=== PATIENT | male | born 1995 | race African-American/Black ===

== ENCOUNTER 2023-08-24 22:31 | Emergency (ER) | payer OTHER, SELFPAY ==
--- NOTE | ~2023-08-24 | CT_ITS ---
EXAMINATION: CT ABDOMEN AND PELVIS WITH CONTRAST CLINICAL INFORMATION: Abdominal pain COMPARISON: None available. TECHNIQUE: Multidetector volumetric images were obtained from the superior aspect of the liver through the pubic symphysis following administration 85 mL of Omnipaque 350 intravenous contrast. Sagittal and coronal reformatted images were obtained on the technologist's workstation. Oral contrast: No This CT examination was performed using dose optimization techniques as appropriate, variously including the following: *Automated exposure control *Adjustment of mA and/or kV according to patient size (this includes techniques or standardized protocols for targeted exams where dose is matched to indication/reason for exam; i.e. extremities or head) *Use of iterative reconstruction technique DLP: 516 mGy-cm FINDINGS: LUNG BASES: The visualized lung bases are unremarkable. LIVER, GALLBLADDER, AND BILIARY TREE: The liver is normal in size, shape, and attenuation. No focal hepatic lesion or biliary ductal dilatation is present. The gallbladder is unremarkable with no evidence of radiopaque gallstones, gallbladder wall thickening, or obvious pericholecystic inflammatory changes. PANCREAS: Unremarkable. SPLEEN: Unremarkable. ADRENAL GLANDS: Unremarkable. KIDNEYS AND URETERS: The kidneys are normal in size, shape, and attenuation. No hydronephrosis, hydroureter, or calculi seen. No perinephric stranding. BLADDER: Unremarkable. GASTROINTESTINAL TRACT: The small and large bowel are unremarkable. The appendix is unremarkable. ABDOMINAL WALL: No significant hernia is appreciated. LYMPH NODES: Normal. VASCULAR: Unremarkable. PELVIC VISCERA: Unremarkable. OSSEOUS STRUCTURES: Unremarkable. CT/CT abdomen pelvis w IV con IMPRESSION: No significant abnormality. Fleischner guidelines were followed.
[2023-08-24 22:43] VITALS: BP 127/83; PULSE 91; RESP 18; TEMP 37.3; O2SAT 98
[2023-08-24 22:49] VITALS: BP 114/72; PULSE 96; O2SAT 100; BMI 29.1
--- NOTE | 2023-08-24 22:50 | MHC.EDTECH ---
Patient came in by ambulance, changed into crisis attire,vitals taken. Belongings list completed and locked in the [employer] # [id number].
--- NOTE | 2023-08-24 23:28 | ED_ITS ---
HPI - Abdominal Pain General Chief Complaint: Abdominal Pain Stated Complaint: LRQ PAIN W/ TENDERNESS Time Seen by Provider: 08/24/23 22:58 Source: patient Mode of arrival: ambulatory Limitations: no limitations History of Present Illness HPI narrative: Patient comes to emergency room complaining of right lower quadrant pain that started earlier this morning. Patient states that he has been feeling nauseous, 1 episode of diarrhea. Patient states that the pain is worse when he ambulates. Patient denies any recent injuries. At this time, patient is coming by ambulance from [facility], patient is on a Section 12. Patient denies any previous abdominal surgery or kidney stones Related Data Allergies Allergy/AdvReac Type Severity Reaction Status Date / Time No Known Allergies Allergy Verified 08/24/23 23:27 Review of Systems Review of Systems Constitutional : No Weight loss, No Fever, No Chills, No Night Sweats, No Fatigue, No Malaise ENT/Mouth : No Hearing loss, No Ear Pain, No Nasal Congestion, No Sinus Pain, No Hoarseness, No sore throat, No Rhinorrhea, No Swallowing Difficulty Eyes: No Eye Pain, No Swelling, No Redness, No Foreign Body, No Discharge, No Vision Changes Cardiovascular : No Chest Pain, No SOB, No Dyspnea on Exertion, No Orthopnea, No Edema, No Palpitations Respiratory : No Cough, No Sputum, No Wheezing, No Smoke Exposure, No Dyspnea Gastrointestinal : Complaining of Nausea, no vomiting, complaining of 1 episode of diarrhea, complaining of right lower quadrant pain worse with ambulation. Genitourinary : no irregular bleeding, No Dysuria, No Urinary Frequency, No Hematuria, No Urinary Incontinence, No Urgency, No Flank Pain, No Urinary Flow Changes, No Hesitancy Musculoskeletal : No joint pain, No Myalgias, No Joint Swelling Skin : No Skin Lesions, No rash Neuro : No Weakness, No Numbness, No Paresthesias, No Loss of Consciousness, No Dizziness, No Headache Psych : No Anxiety/Panic, No Depression, No SI/HI/AH/VH, No Social Issues, Heme/Lymph: No Bruising, No Bleeding,No Lymphadenopathy Endocrine : No Polyuria, No Polydipsia, No Temperature Intolerance PMFSH Social History Social History Advance Directives: No Advance Directives Information Provided: Yes Physical Exam ED Vital Signs: Vital Signs - 24 hr 08/24/23 22:43 Temperature 99.2 F Pulse Rate 91 Respiratory Rate 18 Blood Pressure 127/83 Pulse Oximetry 98 Oxygen Delivery Method Room Air BMI result Body Mass Index 29.1 Const Other: Appearance: Alert. Oriented X3. No acute distress. Well-appearing Eyes: Pupils equal, round and reactive to light. ENT: Pharynx normal. Neck: Normal inspection. Neck supple. No lymph nodes noted. No crepitus CVS: Normal heart rate and rhythm. Pulses normal. Normal S1 and S2 Respiratory: No respiratory distress. Breath sounds normal. No Wheezing. No rales Abdomen: Soft , mild tenderness to palpation in right side upper and lower quadrant, negative Mar sign, No rigidity. No distention. Skin: Skin warm and dry. Normal skin color. Normal skin turgor. Extremities: No lower extremity edema. No Lacerations. No Rash Neuro: Oriented X 3. No motor deficit. No sensory deficit. Moving all extremities. No slurred speech. CN 2 through 12 grossly intact Psych: calm, cooperative, normal affect Course Course Course Narrative: -all of patient's labs and imaging pending Medical Decision Making Medical Decision Making [facility] Narrative: My interpretation of labs: Normal hematology, normal chemistry, urine negative for UTI -my interpretation of CT scan of the abdomen, no obvious abnormality, no obvious signs of appendicitis or cholecystitis Differential Diagnosis Differential Diagnoses: The differential diagnosis associated with the presentation includes (Appendicitis, cholecystitis, SBO, functional abdominal pain) Admission/Observation Consideration of admission/observation: Escalation of care including admission/observation considered (Given patient's location of pain, symptoms, patient was considered) Lab Data [facility] Lab Attestation statement: I reviewed the patient's lab results. 08/24/23 23:39 08/24/23 23:39 Labs: Lab Results 08/24/23 08/24/23 Range/Units 23:38 23:39 WBC 10.2 (4.8-10.8) X10*3/uL RBC 4.76 (4.60-5.80) X10*6/uL Hgb 14.9 (14.0-18.0) g/dl Hct 41.4 L (42.0-52.0) % MCV 87.0 (80.0-98.0) fL MCH 31.3 (27.0-33.0) pg MCHC 36.0 (31.0-36.0) g/dl RDW 13.5 (11.0-16.0) % Plt Count 148 L (160-400) X10*3/uL MPV 10.9 (9.4-12.4) fL Immature Gran % (Auto) 0.2 (0.0-0.4) % Neut % (Auto) 45.4 (45-73) % Lymph % (Auto) 41.5 H (20-40) % [place] % (Auto) 10.2 (2-11) % Eos % (Auto) 2.4 (0-4) % Baso % (Auto) 0.3 (0-2) % Lymph # (Auto) 4.2 (1.2-4.9) X10*3/uL [place] # (Auto) 1.0 (0.1-1.2) X10*3/uL Eos # (Auto) 0.2 (0.0-0.4) X10*3/uL Baso # (Auto) 0.0 (0.0-0.2) X10*3/uL Abs Immat Gran (auto) 0.02 (0.00-0.03) X10*3/uL Absolute Neuts (auto) 4.6 (2.0-8.3) x10*3/uL Absolute Nucleated RBC 0.000 (0.0-0.012) X10*3/uL Nucleated RBC % (auto) 0.0 (0.0-0.2) /100WBC Sodium 141 (135-145) mmol/L Potassium 4.0 (3.3-5.1) mmol/L Chloride 106 (96-108) mmol/L Carbon Dioxide 25 (22-29) mmol/L Anion Gap 14 (12-20) BUN 14 (9-16) mg/dL Creatinine 0.96 (0.5-1.4) mg/dL Estim Creat Clear Calc 112.2 Estimated GFR > 60 Random Glucose 106 (60-115) mg/dL Calcium 9.6 (8.4-10.2) mg/dL Total Bilirubin 0.2 (0.0-1.0) mg/dL AST 16 (5-37) U/L ALT 24 (0-40) U/L Alkaline Phosphatase 59 (39-117) U/L Total Protein 7.0 (6.5-8.0) g/dL Albumin 4.2 (3.5-5.0) g/dL Lipase 63 (8-78) U/L Urine Color Yellow Urine Appearance Clear Urine pH 6.5 (5.0-9.0) Ur Specific [place] 1.025 (1.005-1.025) Urine Protein Negative (Neg-Trace) mg/dL Urine Glucose (UA) Negative (Negative) mg/dL Urine Ketones Trace (Negative) mg/dL Urine Blood Negative (Negative) Urine Nitrite Negative (Negative) Ur Leukocyte Esterase Negative (Negative) Independent Interpretation I performed an independent interpretation of an: CT Scan Radiology Impression Discussion of test interpretation with radiology: I have reviewed the radiologist's reading. Radiologist Impression: FINDINGS: LUNG BASES: The visualized lung bases are unremarkable. LIVER, GALLBLADDER, AND BILIARY TREE: The liver is normal in size, shape, and attenuation. No focal hepatic lesion or biliary ductal dilatation is present. The gallbladder is unremarkable with no evidence of radiopaque gallstones, gallbladder wall thickening, or obvious pericholecystic inflammatory changes. PANCREAS: Unremarkable. SPLEEN: Unremarkable. ADRENAL GLANDS: Unremarkable. KIDNEYS AND URETERS: The kidneys are normal in size, shape, and attenuation. No hydronephrosis, hydroureter, or calculi seen. No perinephric stranding. BLADDER: Unremarkable. GASTROINTESTINAL TRACT: The small and large bowel are unremarkable. The appendix is unremarkable. ABDOMINAL WALL: No significant hernia is appreciated. LYMPH NODES: Normal. VASCULAR: Unremarkable. PELVIC VISCERA: Unremarkable. OSSEOUS STRUCTURES: Unremarkable. CT/CT abdomen pelvis w IV con IMPRESSION: No significant abnormality. Fleischner guidelines were followed. Medications Administered Discontinued Medications Generic Name Dose Route Start Last Admin Trade Name Freq PRN Reason Stop Dose Admin Iohexol 85 ml 08/25/23 00:24 08/25/23 00:24 Iohexol 350 Mg/Ml 100 Ml Infus..Btl IV 08/25/23 00:25 85 ml ONCE ONE Administration Ketorolac Tromethamine 30 mg 08/24/23 23:33 08/25/23 00:06 Ketorolac Tromethamine 30 Mg/Ml Vial IVPUSH 08/24/23 23:34 30 mg ONCE ONE Administration Ondansetron HCl 4 mg 08/24/23 23:33 08/25/23 00:06 Ondansetron Hcl 4 Mg/2 Ml Vial IVPUSH 08/24/23 23:34 4 mg ONCE ONE Administration Critical Care Time Critical Care Time Critical Care Time: Yes Total Critical Care Time: 45 Attestation: I have personally provided critical care time. Time includes review of lab data, radiology results, discussion with consultants, and monitoring for potential decompensation. Intervention performed as documented. Discharge Plan Discharge Clinical Impression: Abdominal pain Patient Disposition: Home, Self-Care Instructions: Abdominal Pain (ED) Additional Instructions: Please follow-up with your primary care physician tomorrow. If you have any worsening or new symptoms, please return to the emergency room or call 911
[2023-08-24 23:46] LABS: MANUAL DIFF FLAG NO
[2023-08-24 23:48] LABS: Basophils Percent Auto 0.3 % (0-2); Eosinophils Absolute Auto 0.2 X10*3/uL (0.0-0.4); Eosinophils Percent Auto 2.4 % (0-4); Hematocrit 41.4 % (42.0-52.0); Hemoglobin 14.9 g/dl (14.0-18.0); Imm Gran Abs Auto 0.02 X10*3/uL (0.00-0.03); Imm Gran Pct Auto 0.2 % (0.0-0.4); Lymphocytes Absolute Auto 4.2 X10*3/uL (1.2-4.9); Lymphocytes Percent Auto 41.5 % (20-40); Mean Corpuscular Hemoglobin 31.3 pg (27.0-33.0); Mean Platelet Volume 10.9 fL (9.4-12.4); Monocytes Percent Auto 10.2 % (2-11); Neutrophils Absolute Auto 4.6 x10*3/uL (2.0-8.3); Neutrophils Percent Auto 45.4 % (45-73); Platelet Count 148 X10*3/uL (160-400); Red Blood Count 4.76 X10*6/uL (4.60-5.80); Red Cell Distribution Width 13.5 % (11.0-16.0); White Blood Count 10.2 X10*3/uL (4.8-10.8)
[2023-08-24 23:57] LABS: Appearance Urine Clear; Color Urine Yellow; Glucose Urine UA Negative (Negative); Leukocyte Esterase Urine Negative (Negative); Nitrite Urine Negative (Negative); PH 6.5 (5.0-9.0); Specific Gravity - Urine 1.025 (1.005-1.025); Urine Blood Negative (Negative); Urine Ketones Trace mg/dL (Negative); Urine Protein Negative (Neg-Trace)
[2023-08-25 00:02] LABS: Alanine Aminotransferase 24 U/L (0-40); Albumin Level 4.2 g/dL (3.5-5.0); Alkaline Phosphatase 59 U/L (39-117); Anion Gap 14 (12-20); Aspartate Amino Transferase 16 U/L (5-37); Bilirubin Total 0.2 mg/dL (0.0-1.0); Blood Urea Nitrogen 14 mg/dL (9-16); Calcium 9.6 mg/dL (8.4-10.2); Carbon Dioxide 25 mmol/L (22-29); Chloride 106 mmol/L (96-108); Creatinine Clr Calc Pharmacy 112.2; Estimated Glomerular Filt Rate > 60; Glucose Random 106 mg/dL (60-115); Lipase 63 U/L (8-78); Sodium 141 mmol/L (135-145)
[2023-08-25] MEDS: ondansetron HCL 4 MG/2 ML VIAL IVPUSH (00:06)
[2023-08-25] MEDS: Ketorolac Tromethamine 30 MG/ML VIAL IVPUSH (00:06)
[2023-08-25] MEDS: iohexoL 350 MG/ML 100 ML INFUS..BTL 85 ML IV (00:24)
[2023-08-25 01:47] VITALS: BP 143/82; PULSE 93; RESP 18; TEMP 36.8; O2SAT 99
--- NOTE | 2023-08-25 01:59 | PC.NURSE ---
nurse to nurse report given to reinier at [facility] for discharge pt awaiting transport back to [facility] facility via ems
[2023-08-25] MEDS: Bacitracin Oint 0.9 GM PACKET 1 APPL TOPICAL (02:25)
--- NOTE | 2023-08-25 03:15 | PC.NURSE ---
ems report given prior to transport to [facility]
== END 2023-08-25 03:16 | disposition home or self-care (01) ==
PROVIDERS: Emergency Medicine; Emergency Provider Emergency Medicine
DX: R10.31 Right lower quadrant pain (principal); R11.0 Nausea; R19.7 Diarrhea, unspecified
CPT/HCPCS: 36415; 74177; 80053; 81003; 83690; 85025; 96374; 96375; 99284; J1885; J2405; Q9967

== ENCOUNTER 2024-05-28 16:52 | Emergency (ER) | payer OTHER, SELFPAY ==
[2024-05-28 17:24] VITALS: BP 140/76; PULSE 107; RESP 16; TEMP 36.8; O2SAT 98
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
[2024-05-28 17:42] VITALS: BMI 25.8
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
[2024-05-28] MEDS: LORazepam 1 MG TABLET 2 MG PO (20:20)
[2024-05-28] MEDS: HaloperidoL 5 MG TABLET PO (20:21)
[2024-05-28 20:47] LABS: MANUAL DIFF FLAG NO
[2024-05-28 20:49] LABS: Basophils Absolute Auto 0.1 X10*3/uL (0.0-0.2); Basophils Percent Auto 0.5 % (0-2); Eosinophils Absolute Auto 0.1 X10*3/uL (0.0-0.4); Eosinophils Percent Auto 1.3 % (0-4); Hematocrit 44.4 % (42.0-52.0); Hemoglobin 16.2 g/dl (14.0-18.0); Imm Gran Abs Auto 0.03 X10*3/uL (0.00-0.03); Imm Gran Pct Auto 0.3 % (0.0-0.4); Lymphocytes Absolute Auto 3.7 X10*3/uL (1.2-4.9); Lymphocytes Percent Auto 33.7 % (20-40); Mean Corpuscular HGB Conc 36.5 g/dl (31.0-36.0); Mean Corpuscular Hemoglobin 32.6 pg (27.0-33.0); Mean Corpuscular Volume 89.3 fL (80.0-98.0); Mean Platelet Volume 10.6 fL (9.4-12.4); Monocytes Absolute Auto 1.2 X10*3/uL (0.1-1.2); Monocytes Percent Auto 11.2 % (2-11); Neutrophils Absolute Auto 5.9 x10*3/uL (2.0-8.3); Platelet Count 199 X10*3/uL (160-400); Red Blood Count 4.97 X10*6/uL (4.60-5.80); Red Cell Distribution Width 14.7 % (11.0-16.0); White Blood Count 11.1 X10*3/uL (4.8-10.8)
[2024-05-28 21:00] LABS: Valproate 56.7 mcg/mL (50.0-100.0)
[2024-05-28 21:04] LABS: Alanine Aminotransferase 51 U/L (0-40); Albumin Level 4.3 g/dL (3.5-5.0); Alkaline Phosphatase 65 U/L (39-117); Anion Gap 12 (12-20); Aspartate Amino Transferase 29 U/L (5-37); Bilirubin Total 0.3 mg/dL (0.0-1.0); Blood Urea Nitrogen 10 mg/dL (9-16); Calcium 10.2 mg/dL (8.4-10.2); Carbon Dioxide 27 mmol/L (22-29); Chloride 107 mmol/L (96-108); Creatinine Clr Calc Pharmacy 86.2; Estimated Glomerular Filt Rate > 60; Ethanol < 10 mg/dL; Glucose Random 117 mg/dL (60-115); Potassium 4.2 mmol/L (3.3-5.1); Sodium 142 mmol/L (135-145); Total Protein 7.6 g/dL (6.5-8.0)
[2024-05-28] MEDS: hydrOXYzine HCL 25 MG TABLET PO (21:12)
[2024-05-28] MEDS: Divalproex Sodium 500 MG TABLET.DR PO (21:12)
[2024-05-28] MEDS: risperiDONE 2 MG TABLET PO (21:12)
--- NOTE | 2024-05-28 21:15 | PC.NURSE ---
loud pressured speech, in mileu and makes inappropriate comments (sexually provocative) attempts to antagonize staff, grandiose
--- NOTE | 2024-05-28 21:20 | PC.NURSE ---
constant childlike chatter
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
--- OUTSIDE RECORDS SUMMARY | 2024-05-29 03:17 | XMS_ITS ---
Author Name [facility] Organization Unknown History of Medication Use Medication Directions Dispensed Refills Start Date End Date Stat No known medications No known medications 2023 active Problems Problem Status Onset Date Problem Type Date of Resolution Source Homelessness active EncounterDiagnosisAct CTTHSFRAN Mood disorder (HCC) active EncounterDiagnosisAc t CTTHSFRAN
[2024-05-29 06:17] VITALS: RESP 18
[2024-05-29] MEDS: Divalproex Sodium 500 MG TABLET.DR PO (09:35)
[2024-05-29] MEDS: risperiDONE 2 MG TABLET PO (09:35)
[2024-05-29] MEDS: Atorvastatin Calcium 20 MG TABLET PO (09:35)
[2024-05-29] MEDS: hydrOXYzine HCL 25 MG TABLET PO (09:35)
--- NOTE | 2024-05-29 09:47 | PC.NURSE ---
Pt walking around unit, loud pressured speech, asking for discharge I can't spend my whole life in the hospital. pt making calls to the courthouse
[2024-05-29 10:53] VITALS: BP 130/80; PULSE 90; RESP 18; TEMP 36.8; O2SAT 99
== END 2024-05-29 11:03 | disposition still patient (30) ==
PROVIDERS: Physician Assistant; Emergency Provider Internal Medicine
DX: F31.9 Bipolar disorder, unspecified (principal); F41.9 Anxiety disorder, unspecified; F84.0 Autistic disorder; Z79.899 Other long term (current) drug therapy
CPT/HCPCS: 36415; 80053; 80164; 80307; 85025; 99284

== ENCOUNTER 2024-07-09 14:34 | Emergency (ER) | payer OTHER, SELFPAY ==
[2024-07-09 14:55] VITALS: BP 134/80; PULSE 105; RESP 18; TEMP 36.3; O2SAT 97
[2024-07-09 14:59] VITALS: BP 151/93; PULSE 106; PULSE 89; RESP 14; TEMP 36.4; O2SAT 100; O2SAT 98; BMI 27.2
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
--- NOTE | 2024-07-09 15:12 | PC.NURSE ---
Pt's father contacted staff stating pt is from the [place] area and he took a bus to [facility] with no place to stay; pt's father states pt has a guardian through [facility] and they've been looking for him; pt's father is states he'll contact [facility] and have them contact [facility]
--- NOTE | 2024-07-09 15:15 | PC.NURSE ---
This RN received verbal permission from pt's father to list his name and contact info in pt chart: Leroy Chirinos [phone]
[2024-07-09 15:38] LABS: MANUAL DIFF FLAG NO
[2024-07-09] MEDS: LORazepam 1 MG TABLET 2 MG PO (15:39)
--- NOTE | 2024-07-09 15:39 | ED_ITS ---
HPI - Psych General Chief Complaint: Psychiatric Symptoms Stated Complaint: PSYCH EVAL,OFF MEDS,AUD HALLUCINATIONS,?MANIC Time Seen by Provider: 07/09/24 15:25 Source: patient and EMS Mode of arrival: EMS Limitations: no limitations History of Present Illness ED Provider: DR. Arthur HPI Narrative: 28-year-old male history of mental illness and previous hospitalization, patient took the bus from [facility] area came to [facility] patient walked into check will be police seeking for help, patient was transported to our hospital for further evaluation. Patient admit to auditory hallucination, no SI, no HI. Related Data Home Medications ?Medication ?Instructions ?Recorded ?Confirmed atorvastatin 20 mg tablet 20 mg PO DAILY 05/28/24 05/28/24 divalproex 500 mg tablet,delayed 500 mg PO BID anemia 05/28/24 05/28/24 release hydroxyzine HCl 25 mg tablet 25 mg PO BID anxiety 05/28/24 05/28/24 risperidone 1 mg tablet 2 mg PO BID psychosis 05/28/24 05/28/24 Allergies Allergy/AdvReac Type Severity Reaction Status Date / Time No Known Allergies Allergy Verified 07/09/24 15:05 Review of Systems 2 Review of Systems: All other systems are reviewed and are negative Constitutional: Reports as per HPI and Reports no additional constitutional complaints Eyes: Reports as per HPI and Reports no additional eye complaints Reports system reviewed and no additional complaints, except as documented Cardiovascular: Reports as per HPI and Reports no additional cardiovascular complaints Respiratory: Reports as per HPI and Reports no additional respiratory complaints Gastrointestinal: Reports as per HPI and Reports no additional gastrointestinal complaints Genitourinary: Reports no additional female genitourinary complaints Musculoskeletal: Reports no additional musculoskeletal complaints Skin/Breast: Reports system reviewed and no additional complaints, except as docu Psychiatric: Reports no additional psychiatric complaints Endocrine: Reports no additional endocrine complaints Hematologic/Lymphatic: Reports no additional hematologic/lymphatic complaints Allergic/Immunologic: Reports no additional allergic/immunologic complaints Reports system reviewed and no additional complaints, except as documented and Reports Abnormal speech present [facility] Social History Social History Alcohol intake: never Advance Directives: No Advance Directives Information Provided: No Physical Exam 2 Vital Signs: Vital Signs: Last Vital Signs Temp 97.5 F 07/09/24 14:59 Pulse 89 07/09/24 14:59 Resp 14 07/09/24 14:59 BP 151/93 H 07/09/24 14:59 Pulse Ox 100 07/09/24 14:59 O2 Del Method Room Air 07/09/24 14:59 BMI result Body Mass Index 27.2 Vital signs have been reviewed and appear to be correct. Blood pressure elevated. Heart rate normal. Respiratory rate normal. Temperature normal. Oxygen saturation normal. Appearance: Alert. Oriented X3. No acute distress. Head: Normal external exam. Normocephalic. Atraumatic. No Muniz signs noted. No raccoon eyes noted Eyes: PERRLA. EOMI. Conjunctiva and sclera normal. Eyelids normal. ENT: TM's Normal. Pharynx normal. Uvula midline. Moist mucous membranes. No trismus noted. No drooling noted. No muffled voice noted. Neck: Normal inspection. Neck supple. FROM. No adenopathy. Thyroid Normal. No meningeal signs. No neck mass noted. CVS: Normal heart rate and rhythm. Heart sound normal. No murmurs noted. Pulses normal throughout. Respiratory: No respiratory distress. Painless inspiration. Breath sounds normal. No wheezes/rales/rhonchi noted. Chest nontender. No accessory muscle usage noted or decreased air movement noted. Abdomen: Soft and nontender. Bowel sounds normal in all 4 quadrants. No distention noted. No organomegaly noted. No visible injury noted. Back: No CVA tenderness. Full range of motion noted. Skin: Skin warm and dry. Normal skin color. Normal skin turgor. No rashes/lesions/lacerations noted. Extremities: No lower extremity edema. Extremities exhibit normal range of motion. Extremities nontender. Neuro: Oriented X 3. Cranial nerve exam: II-XII are grossly intact No motor deficit. No sensory deficit. Reflexes normal. Patient Orientation: Person, Place, Time and Situation, okay hygiene and grooming. Fair eye contact, attentive, no tics or tremors. Level of Consciousness: Awake, Appropriate and Alert Patient Behavior: Appropriate, Guarded, Cooperative and Anxious Mood Description: Constricted, Blunted and Apprehensive Affect Description: Constricted, Blunted and Apprehensive Patient Cognition Impaired: No Ability to Follow Directions: Excellent Speech Pattern: Clear, Appropriate and Spontaneous Speech, nonpressured, spontaneous with regular rate and rhythm, normal volume and prosody. No dysarthria. Memory Description: Intact, Immediate Intact and Short Term Intact Hallucinations: Auditory hallucination present. Delusions: Not Present Thought Process: Intact Thought Content: positive for Intact, positive for Logical, denies Suicidal Ideation and denies Homicidal Ideation. Depressive Symptoms: Not present. Judgement and Insight: Limited but adequate. Course Reevaluation(s) Reevaluation #1: 28-year-old with history of mental illness who is not taking his medication, [place] the bus from far location came to the [facility], medically cleared will get care team evaluation. Time: 17:00 Medical Decision Making Differential Diagnosis Differential Diagnoses: The differential diagnosis associated with the presentation includes (Acute psychosis, SI, HI, medical clearance.) Admission/Observation Consideration of admission/observation: Escalation of care including admission/observation considered Lab Data MDM Lab Attestation statement: I reviewed the patient's lab results. 07/09/24 15:32 07/09/24 15:33 Discharge Plan Discharge Clinical Impression: Auditory hallucination Patient Disposition: Still a Patient Prescriptions: No Action atorvastatin 20 mg tablet 20 mg PO DAILY hydroxyzine HCl 25 mg tablet 25 mg PO BID risperidone 1 mg tablet 2 mg PO BID divalproex 500 mg tablet,delayed release (DR/EC) 500 mg PO BID Print Language: Georgian
[2024-07-09 15:45] LABS: Basophils Percent Auto 0.4 % (0-2); Eosinophils Absolute Auto 0.1 X10*3/uL (0.0-0.4); Eosinophils Percent Auto 0.6 % (0-4); Hematocrit 43.3 % (42.0-52.0); Hemoglobin 15.6 g/dl (14.0-18.0); Imm Gran Abs Auto 0.03 X10*3/uL (0.00-0.03); Imm Gran Pct Auto 0.3 % (0.0-0.4); Lymphocytes Absolute Auto 2.8 X10*3/uL (1.2-4.9); Lymphocytes Percent Auto 27.1 % (20-40); Mean Corpuscular Hemoglobin 32.2 pg (27.0-33.0); Mean Corpuscular Volume 89.3 fL (80.0-98.0); Mean Platelet Volume 10.2 fL (9.4-12.4); Monocytes Absolute Auto 0.5 X10*3/uL (0.1-1.2); Monocytes Percent Auto 4.9 % (2-11); Neutrophils Percent Auto 66.7 % (45-73); Platelet Count 212 X10*3/uL (160-400); Red Blood Count 4.85 X10*6/uL (4.60-5.80); Red Cell Distribution Width 13.3 % (11.0-16.0); White Blood Count 10.5 X10*3/uL (4.8-10.8)
[2024-07-09 15:46] LABS: Appearance Urine Clear; Color Urine Yellow; Glucose Urine UA Negative (Negative); Leukocyte Esterase Urine Negative (Negative); Nitrite Urine Negative (Negative); PH 6.5 (5.0-9.0); Urine Blood Negative (Negative); Urine Ketones Trace mg/dL (Negative); Urine Protein Negative (Neg-Trace)
[2024-07-09 15:49] LABS: Amphetamine Screen Urine Not Detected (Not Detect); Barbiturates, Urine Not Detected (Not Detect); Benzodiazepines Screen Urine Not Detected (Not Detect); Buprenorphine Scr Not Detected (Not Detect); Cannabinoid Screen Urine Not Detected (Not Detect); Cocaine Screen Urine Not Detected (Not Detect); Fentanyl, urine Not Detected (Not Detect); Methadone Screen, Urine Not Detected (Not Detect); Opiate Screen Urine Not Detected (Not Detect); Oxycodone Screen Urine Not Detected (Not Detect); Phencyclidine Screen Urine Not Detected (Not Detect)
[2024-07-09 16:06] LABS: Alanine Aminotransferase 28 U/L (0-40); Albumin Level 4.4 g/dL (3.5-5.0); Anion Gap 15 (12-20); Aspartate Amino Transferase 27 U/L (5-37); Bilirubin Total 0.3 mg/dL (0.0-1.0); Blood Urea Nitrogen 10 mg/dL (9-16); Calcium 9.7 mg/dL (8.4-10.2); Carbon Dioxide 25 mmol/L (22-29); Chloride 105 mmol/L (96-108); Creatinine Clr Calc Pharmacy 84.8; Estimated Glomerular Filt Rate > 60; Ethanol < 10 mg/dL; Glucose Random 135 mg/dL (60-115); Potassium 3.9 mmol/L (3.3-5.1); Sodium 141 mmol/L (135-145); Total Protein 7.8 g/dL (6.5-8.0)
[2024-07-09 16:09] LABS: Valproate 86.3 mcg/mL (50.0-100.0)
[2024-07-09 16:16] LABS: Alkaline Phosphatase 65 U/L (39-117)
--- OUTSIDE RECORDS SUMMARY | 2024-07-09 17:57 | XMS_ITS | Continuity of Care Document ---
Author Organization [facility] Address [address] [address] Insurance Providers Payer Plan Claims Address Claims Phone Policy Number Group Number Relation Employer Guarantor Name Guarantor Guarantor Address Guarantor Phone [facility] [id number] Self Devyn Chirinos 1995 [address] [place], [place] [id number] [facility] Requi red [id number] Other Unknown Unknown 1995 [address] [place] [address] Medica re A&B Medic are A&B [id number] Self Devyn Chirinos 1995 [address] [place], [place] [id number] Problems Unknown Problems Results Test Value / Unit Interpretation Reference Ran ge VALPROIC ACID, FREE[GINGER]?Collected: 06/28/2023 08:00 AM?Source: [facility] VALPROIC ACID, FREE [[id number]] 7.6 mg/L 4.8-17.3 mg/L Nonlinear drug binding prope rties result in thefraction of free valproic acid increasing as totaldrug increases. The free valproic acid fractionmay range from 5% to 25% for the total drug rangeof 30-160 mg/L. VALPROIC ACID[GINGER]? Collected: 06/28/2023 08:00 AM?Source: [facility] VALPROIC ACID [[id number]] 68.7 mg/L 50. 0-100.0 mg/L COMPREHENSIVE METABOLIC PANE L[GINGER]?Collected: 06/28/2023 08:00 AM?Source: [facility] GLUCOSE [[id number]] 80 mg/dL 65-99 mg/ dL Fasting reference interval UREA NITROGEN (BUN) [[id number]] 10 mg/dL 7-25 mg/dL CREATININE [[id number]] 1.12 mg/dL 0.60-1 .24 mg/dL EGFR [[id number]] 92 mL/min/1.73m2 > OR = 6 0 mL/min/1.73m2 BUN/CREATININE RATIO [[id number]] SEE NOTE: (calc) 6-22 (calc) Not Reported: BUN and Creati nine are withinreference range. SODIUM [54492725] 138 mmol/L 135-146 mm ol/L POTASSIUM [35593700] 4.5 mmol/L 3.5-5.3 mmol/L CHLORIDE [81462435] 101 mmol/L 98-110 m mol/L CARBON DIOXIDE [[id number]] 28 mmol/L 20 -32 mmol/L CALCIUM [89146709] 9.6 mg/dL 8.6-10.3 mg/dL PROTEIN, TOTAL [99440951] 6.7 g/dL 6. 1-8.1 g/dL ALBUMIN [[id number]] 4.2 g/dL 3.6-5.1 g /dL GLOBULIN [53077250] 2.5 g/dL (calc) 1.9-3 .7 g/dL (calc) ALBUMIN/GLOBULIN RATIO [76911168] 1.7 (calc) 1.0-2.5 (calc) BILIRUBIN, TOTAL [23507598] 0.3 mg/dL 0.2-1.2 mg/dL ALKALINE PHOSPHATASE [58184472] 49 U/L 36-130 U/L AST [[id number]] 17 U/L 10-40 U/L ALT [[id number]] 24 U/L 9-46 U/L CBC (INCLUDES DIFF/PLT)[GINGER] ?Collected: 06/28/2023 08:00 AM?Source: [facility] WHITE BLOOD CELL COUNT [[id number]] 8.3 Thousand/uL 3.8-10.8 Thousand/uL RED BLOOD CELL COUNT [[id number]] 4.90 Million/uL 4.20-5.80 Million/uL HEMOGLOBIN [94612387] 15.4 g/dL 13.2-1 7.1 g/dL HEMATOCRIT [46652326] 45.0 % 38.5-5 0.0 % MCV [62316407] 91.8 fL 80.0-100.0 fL MCH [42661311] 31.4 pg 27.0-33.0 pg MCHC [99884699] 34.2 g/dL 32.0-36.0 g/ dL RDW [44486467] 14.5 % 11.0-15.0 % PLATELET COUNT [49497444] 171 Thousand/uL 140-400 Thousand/uL MPV [01393563] 11.3 fL 7.5-12.5 fL ABSOLUTE NEUTROPHILS [50926946] 3494 cells/uL 6210-7893 cells/uL ABSOLUTE LYMPHOCYTES [70645692] 3694 cells/uL 850-3900 cells/uL ABSOLUTE MONOCYTES [11766273] 888 cells/uL 200-950 cells/uL ABSOLUTE EOSINOPHILS [87894423] 183 cells/uL 15-500 cells/uL ABSOLUTE BASOPHILS [87323684] 42 cells/uL 0-200 cells/uL NEUTROPHILS [59055376] 42.1 % LYMPHOCYTES [28231232] 44.5 % MONOCYTES [78918772] 10.7 % EOSINOPHILS [61302106] 2.2 % BASOPHILS [37242849] 0.5 % TSH[GINGER]?Collected: 06/28/2023 08:00 AM?Source: [facility] TSH [[id number]] 5.11 mIU/L H 0.40-4.50 mIU /L VALPROIC ACID, FREE[GINGER]?Collected: 06/13/2023 08:00 AM?Source: [facility] VALPROIC ACID, FREE [[id number]] 11.9 mg/L 4.8-17.3 mg/L Nonlinear drug binding prope rties result in thefraction of free valproic acid increasing as totaldrug increases. The free valproic acid fractionmay range from 5% to 25% for the total drug rangeof 30-160 mg/L. VALPROIC ACID[GINGER]? Collected: 06/13/2023 08:00 AM?Source: [facility] VALPROIC ACID [[id number]] 92.6 mg/L 50. 0-100.0 mg/L COMPREHENSIVE METABOLIC PANE L[GINGER]?Collected: 06/13/2023 08:00 AM?Source: [facility] GLUCOSE [[id number]] 85 mg/dL 65-99 mg/ dL Fasting reference interval UREA NITROGEN (BUN) [[id number]] 13 mg/dL 7-25 mg/dL CREATININE [00842818] 1.08 mg/dL 0.60-1 .24 mg/dL EGFR [[id number]] 96 mL/min/1.73m2 > OR = 6 0 mL/min/1.73m2 BUN/CREATININE RATIO [[id number]] SEE NOTE: (calc) 6-22 (calc) Not Reported: BUN and Creati nine are withinreference range. SODIUM [[id number]] 138 mmol/L 135-146 mm ol/L POTASSIUM [21605006] 4.8 mmol/L 3.5-5.3 mmol/L CHLORIDE [30275850] 101 mmol/L 98-110 m mol/L CARBON DIOXIDE [58018718] 30 mmol/L 20 -32 mmol/L CALCIUM [89735784] 9.7 mg/dL 8.6-10.3 mg/dL PROTEIN, TOTAL [40496302] 6.9 g/dL 6. 1-8.1 g/dL ALBUMIN [18534159] 4.3 g/dL 3.6-5.1 g /dL GLOBULIN [43013217] 2.6 g/dL (calc) 1.9-3 .7 g/dL (calc) ALBUMIN/GLOBULIN RATIO [12140172] 1.7 (calc) 1.0-2.5 (calc) BILIRUBIN, TOTAL [79154497] 0.3 mg/dL 0.2-1.2 mg/dL ALKALINE PHOSPHATASE [35276986] 51 U/L 36-130 U/L AST [[id number]] 15 U/L 10-40 U/L ALT [[id number]] 18 U/L 9-46 U/L CBC (INCLUDES DIFF/PLT)[GINGER] ?Collected: 06/13/2023 08:00 AM?Source: [facility] WHITE BLOOD CELL COUNT [[id number]] 9.4 Thousand/uL 3.8-10.8 Thousand/uL RED BLOOD CELL COUNT [[id number]] 4.87 Million/uL 4.20-5.80 Million/uL HEMOGLOBIN [00923672] 15.3 g/dL 13.2-1 7.1 g/dL HEMATOCRIT [19673583] 44.9 % 38.5-5 0.0 % MCV [29451936] 92.2 fL 80.0-100.0 fL MCH [58337210] 31.4 pg 27.0-33.0 pg MCHC [19600502] 34.1 g/dL 32.0-36.0 g/ dL RDW [52785463] 13.7 % 11.0-15.0 % PLATELET COUNT [71538523] 150 Thousand/uL 140-400 Thousand/uL MPV [47907468] 11.3 fL 7.5-12.5 fL ABSOLUTE NEUTROPHILS [06772017] 3779 cells/uL 6880-4331 cells/uL ABSOLUTE LYMPHOCYTES [88660689] 4597 cells/uL H 850-3900 cells/uL ABSOLUTE MONOCYTES [46421981] 799 cells/uL 200-950 cells/uL ABSOLUTE EOSINOPHILS [04239041] 169 cells/uL 15-500 cells/uL ABSOLUTE BASOPHILS [33213274] 56 cells/uL 0-200 cells/uL NEUTROPHILS [98853958] 40.2 % LYMPHOCYTES [93003491] 48.9 % MONOCYTES [43980905] 8.5 % EOSINOPHILS [83756228] 1.8 % BASOPHILS [80068111] 0.6 % TSH[GINGER]?Collected: 06/13/2023 08:00 AM?Source: [facility] TSH [[id number]] 6.87 mIU/L H 0.40-4.50 mIU /L URINALYSIS, COMPLETE W/REFLE X TO CULTURE[GINGER]?Collected: 06/05/2023 08:00 AM?Source: [facility] COLOR [[id number]] YELLOW YELLOW APPEARANCE [76611105] CLEAR CLEAR SPECIFIC GRAVITY [45495713] 1.018 1.001-1.035 PH [01088875] 7.0 5.0-8.0 GLUCOSE [20989915] NEGATIVE NEGATIVE BILIRUBIN [84705441] NEGATIVE NEGATIV E KETONES [00770273] NEGATIVE NEGATIVE OCCULT BLOOD [15617998] NEGATIVE NEGA TIVE PROTEIN [23474096] NEGATIVE NEGATIVE NITRITE [10750366] NEGATIVE NEGATIVE LEUKOCYTE ESTERASE [68317525] NEGATIVE NEGATIVE WBC [92907661] NONE SEEN /HPF < OR = 5 /H PF RBC [01590150] NONE SEEN /HPF < OR = 2 /H PF SQUAMOUS EPITHELIAL CELLS [83792998] NONE SEEN /HPF < OR = 5 /HPF BACTERIA [14762929] NONE SEEN /HPF NONE S EEN /HPF HYALINE CAST [14012075] NONE SEEN /LPF NO NE SEEN /LPF NOTE [41026391] AMOL This urine was analyzed for the presence of WBC,RBC, bacteria, casts, and other formed elements.Only those elements seen were reported. REFLEXIVE URINE CULTURE[GINGER] ?Collected: 06/05/2023 08:00 AM?Source: [facility] REFLEXIVE URINE CULTURE [[id number]] AMOL NO CULTURE INDICATED VALPROIC ACID, FREE[GINGER]?Collected: 02/06/2023 07:00 AM?Source: [facility] VALPROIC ACID, FREE [[id number]] TNP/124 mg/L 4.8-17.3 mg/L TEST NOT PERFORMEDNo suitabl e specimen received.Please review the testrequirements [email or web address] VALPROIC ACID[GINGER]? Collected: 02/06/2023 07:00 AM?Source: [facility] VALPROIC ACID [[id number]] 86.0 mg/L 50. 0-100.0 mg/L COMPREHENSIVE METABOLIC PANE L[GINGER]?Collected: 02/06/2023 07:00 AM?Source: [facility] GLUCOSE [[id number]] 78 mg/dL 65-99 mg/ dL Fasting reference interval UREA NITROGEN (BUN) [44550384] 11 mg/dL 7-25 mg/dL CREATININE [71524452] 1.06 mg/dL 0.60-1 .24 mg/dL EGFR [[id number]] 99 mL/min/1.73m2 > OR = 6 0 mL/min/1.73m2 BUN/CREATININE RATIO [43449117] SEE NOTE: (calc) 6-22 (calc) Not Reported: BUN and Creati nine are withinreference range. SODIUM [79416891] 142 mmol/L 135-146 mm ol/L POTASSIUM [98649286] 4.4 mmol/L 3.5-5.3 mmol/L CHLORIDE [10514540] 104 mmol/L 98-110 m mol/L CARBON DIOXIDE [83185151] 30 mmol/L 20 -32 mmol/L CALCIUM [15801980] 9.5 mg/dL 8.6-10.3 mg/dL PROTEIN, TOTAL [91553914] 6.7 g/dL 6. 1-8.1 g/dL ALBUMIN [92509095] 4.0 g/dL 3.6-5.1 g /dL GLOBULIN [67555168] 2.7 g/dL (calc) 1.9-3 .7 g/dL (calc) ALBUMIN/GLOBULIN RATIO [63713275] 1.5 (calc) 1.0-2.5 (calc) BILIRUBIN, TOTAL [43673844] 0.4 mg/dL 0.2-1.2 mg/dL ALKALINE PHOSPHATASE [52661493] 45 U/L 36-130 U/L AST [05977463] 17 U/L 10-40 U/L ALT [[id number]] 20 U/L 9-46 U/L CBC (INCLUDES DIFF/PLT)[GINGER] ?Collected: 02/06/2023 07:00 AM?Source: [facility] WHITE BLOOD CELL COUNT [[id number]] 7.4 Thousand/uL 3.8-10.8 Thousand/uL RED BLOOD CELL COUNT [[id number]] 4.74 Million/uL 4.20-5.80 Million/uL HEMOGLOBIN [61787205] 15.1 g/dL 13.2-1 7.1 g/dL HEMATOCRIT [39528313] 43.9 % 38.5-5 0.0 % MCV [52814516] 92.6 fL 80.0-100.0 fL MCH [92178565] 31.9 pg 27.0-33.0 pg MCHC [32179966] 34.4 g/dL 32.0-36.0 g/ dL RDW [66939464] 13.9 % 11.0-15.0 % PLATELET COUNT [02469806] 139 Thousand/uL L 140-400 Thousand/uL MPV [56898301] 11.2 fL 7.5-12.5 fL ABSOLUTE NEUTROPHILS [18695139] 2916 cells/uL 9967-6086 cells/uL ABSOLUTE LYMPHOCYTES [32026379] 3419 cells/uL 850-3900 cells/uL ABSOLUTE MONOCYTES [41610776] 866 cells/uL 200-950 cells/uL ABSOLUTE EOSINOPHILS [24576088] 148 cells/uL 15-500 cells/uL ABSOLUTE BASOPHILS [59644926] 52 cells/uL 0-200 cells/uL NEUTROPHILS [11188930] 39.4 % LYMPHOCYTES [61068461] 46.2 % MONOCYTES [17728578] 11.7 % EOSINOPHILS [49420407] 2.0 % BASOPHILS [77611230] 0.7 % TSH[GINGER]?Collected: 02/06/2023 07:00 AM?Source: [facility] TSH [[id number]] 2.66 mIU/L 0.40-4.50 mIU /L QUANTIFERON(R)-TB GOLD PLUS, 1 TUBE[GINGER]?Collected: 12/22/2022 07:00 AM?Source: [facility] QUANTIFERON(R)-TB GOLD PLUS, 1 TUBE [[id number]] NEGATIVE NEGATIVE Negative test result. M. tub erculosis complexinfection unlikely. NIL [77838387] 0.03 IU/mL MITOGEN-NIL [49248441] 7.28 IU/mL TB1-NIL [14524539] 0.00 IU/mL TB2-NIL [60659497] 0.01 IU/mL The Nil tube value reflects the background interferongamma immune response of the patient's blood sample.This value has been subtracted from the patient'sdisplayed TB and Mitogen results.Lower than expected results with the Mitogen tubeprevent false-negative Quantiferon readings bydetecting a patient with a potential immunesuppressive condition and/or suboptimal pre-analyticalspecimen handling.The TB1 Antigen tube is coated with theM. tuberculosis-specific antigens designed to elicitresponses from TB antigen primed CD4+ helperT-lymphocytes.The TB2 Antigen tube is coated with theM. tuberculosis-specific antigens designed to elicitresponses from TB antigen primed CD4+ helper and CD8+cytotoxic T-lymphocytes.For additional information, please refer tohttps://education.[place]/faq/NUB541(This link is being provided for informational/educational purposes only.) CHOLESTEROL, TOTAL[GINGER]?Collected: 12/22/2022 07:00 AM?Source: [facility] CHOLESTEROL, TOTAL [[id number]] 259 mg/dL H 200 mg/dL HDL CHOLESTEROL[GINGER]?Collected: 12/22/2022 07:00 AM?Source: [facility] HDL CHOLESTEROL [[id number]] 36 mg/dL L > OR = 40 mg/dL TRIGLYCERIDES[GINGER]? Collected: 12/22/2022 07:00 AM?Source: [facility] TRIGLYCERIDES [[id number]] 314 mg/dL H 150 mg/dL If a non-fasting specimen wa s collected, considerrepeat triglyceride testing on a fasting specimenif clinically indicated.Matt et al. J. of Clin. Lipidol. 2015;9:129-169. LDL-CHOLESTEROL[GINGER]?Collected: 12/22/2022 07:00 AM?Source: [facility] LDL-CHOLESTEROL [[id number]] 170 mg/dL (calc) H Reference range: or = 2 CHD risk factors.LDL-C is now calculated using the Clyde-Randeecalculation, which is a validated novel method providingbetter accuracy than the Friedewald equation in theestimation of LDL-C.Clyde MANZANO et al. THANG. 2013;310(19): 0135-6681(http://education.ThreatMetrix/faq/FET042) CHOL/HDLC RATIO[GINGER]?Collected: 12/22/2022 07:00 AM?Source: [facility] CHOL/HDLC RATIO [[id number]] 7.2 (calc) H 5 .0 (calc) NON HDL CHOLESTEROL[GINGER]?Collected: 12/22/2022 07:00 AM?Source: [facility] NON HDL CHOLESTEROL [[id number]] 223 mg/dL (calc) H 130 mg/dL (calc) Non-HDL level > or = 220 is very high and may indicategenetic familial hypercholesterolemia (FH). Clinicalassessment and measurement of blood lipid levelsshould be considered for all first-degree relativesof patients with an FH diagnosis.For patients with diabetes plus 1 major ASCVD riskfactor, treating to a non-HDL-C goal of 100 mg/dL(LDL-C of <70 mg/dL) is considered a therapeuticoption. COMPREHENSIVE METABOLIC PANE L[GINGER]?Collected: 12/22/2022 07:00 AM?Source: [facility] GLUCOSE [[id number]] 90 mg/dL 65-99 mg/ dL Fasting reference interval UREA NITROGEN (BUN) [91573270] 9 mg/dL 7-25 mg/dL CREATININE [87210940] 1.07 mg/dL 0.60-1 .24 mg/dL EGFR [38582883] 98 mL/min/1.73m2 > OR = 6 0 mL/min/1.73m2 The eGFR is based on the CKD -EPI 2020 equation. To calculatethe new eGFR from a previous Creatinine or Cystatin Cresult, go to https://www.kidney.org/professionals/kdoqi/gfr%5Fcalculator BUN/CREATININE RATIO [58407016] NOT APPL ICABLE (calc) 6-22 (calc) SODIUM [62792419] 142 mmol/L 135-146 mm ol/L POTASSIUM [86433888] 4.6 mmol/L 3.5-5.3 mmol/L CHLORIDE [89746474] 101 mmol/L 98-110 m mol/L CARBON DIOXIDE [30529125] 29 mmol/L 20 -32 mmol/L CALCIUM [36386532] 9.8 mg/dL 8.6-10.3 mg/dL PROTEIN, TOTAL [53224265] 7.2 g/dL 6. 1-8.1 g/dL ALBUMIN [92039893] 4.2 g/dL 3.6-5.1 g /dL GLOBULIN [92008118] 3.0 g/dL (calc) 1.9-3 .7 g/dL (calc) ALBUMIN/GLOBULIN RATIO [24238680] 1.4 (calc) 1.0-2.5 (calc) BILIRUBIN, TOTAL [67176329] 0.3 mg/dL 0.2-1.2 mg/dL ALKALINE PHOSPHATASE [44232644] 59 U/L 36-130 U/L AST [57427181] 20 U/L 10-40 U/L ALT [63599285] 32 U/L 9-46 U/L CBC (INCLUDES DIFF/PLT)[GINGER] ?Collected: 12/22/2022 07:00 AM?Source: [facility] WHITE BLOOD CELL COUNT [[id number]] 7.2 Thousand/uL 3.8-10.8 Thousand/uL RED BLOOD CELL COUNT [50198388] 5.13 Million/uL 4.20-5.80 Million/uL HEMOGLOBIN [16573374] 16.1 g/dL 13.2-1 7.1 g/dL HEMATOCRIT [02725572] 48.4 % 38.5-5 0.0 % MCV [13025965] 94.3 fL 80.0-100.0 fL MCH [84251542] 31.4 pg 27.0-33.0 pg MCHC [13737059] 33.3 g/dL 32.0-36.0 g/ dL RDW [29925746] 14.4 % 11.0-15.0 % PLATELET COUNT [03513699] 166 Thousand/uL 140-400 Thousand/uL MPV [21744660] 11.8 fL 7.5-12.5 fL ABSOLUTE NEUTROPHILS [98117832] 2650 cells/uL 7184-3989 cells/uL ABSOLUTE LYMPHOCYTES [27289401] 3737 cells/uL 850-3900 cells/uL ABSOLUTE MONOCYTES [40102595] 540 cells/uL 200-950 cells/uL ABSOLUTE EOSINOPHILS [47658591] 223 cells/uL 15-500 cells/uL ABSOLUTE BASOPHILS [87670346] 50 cells/uL 0-200 cells/uL NEUTROPHILS [78135482] 36.8 % LYMPHOCYTES [41093893] 51.9 % MONOCYTES [67598690] 7.5 % EOSINOPHILS [95595395] 3.1 % BASOPHILS [32701065] 0.7 % HEMOGLOBIN A1c[GINGER]?Collected: 12/22/2022 07:00 AM?Source: [facility] HEMOGLOBIN A1c [[id number]] 5.5 % of total Hgb 5.7 % of total Hgb For the purpose of screening for the presence ofdiabetes: or =6.5% Consistent with diabetesThis assay result is consistent with a decreased riskof diabetes.Currently, no consensus exists regarding use ofhemoglobin A1c for diagnosis of diabetes in children.According to [employer] Diabetes Association (ADA)guidelines, hemoglobin A1c 7.0% represents optimalcontrol in non- diabetic patients. Differentmetrics may apply to specific patient populations.Standards of Medical Care in Diabetes(ADA). T4, FREE[GINGER]?Colle cted: 12/22/2022 07:00 AM?Source: [facility] T4, FREE [[id number]] 1.3 ng/dL 0.8-1.8 ng/dL TSH[GINGER]?Collected: 12/22/2022 07:00 AM?Source: [facility] TSH [[id number]] 3.17 mIU/L 0.40-4.50 mIU /L HEPATITIS A IGM[GINGER]?Collected: 12/22/2022 07:00 AM?Source: [facility] HEPATITIS A IGM [[id number]] NON-REACTIVE N ON-REACTIVE HEPATITIS B SURFACE ANTIGEN W/REFL CONFIRM[GINGER]?Collected: 12/22/2022 07:00 AM?Source: [facility] HEPATITIS B SURFACE ANTIGEN [[id number]] NON-REACTIVE NON-REACTIVE HEPATITIS B CORE ANTIBODY (I GM)[GINGER]?Collected: 12/22/2022 07:00 AM?Source: [facility] HEPATITIS B CORE ANTIBODY (I GM) [[id number]] NON-REACTIVE NON-REACTIVE HEPATITIS C AB W/REFL TO HCV RNA, QN, PCR[GINGER]?Collected: 12/22/2022 07:00 AM?Source: [facility] HEPATITIS C ANTIBODY [[id number]] NON-REACTIVE NON-REACTIVE HCV antibody was non-reactiv e. There is no laboratoryevidence of HCV infection.In most cases, no further action is required. However,if recent HCV exposure is suspected, a test for HCV RNA(test code 69580) is suggested.For additional information please refer tohttp://education.[place]/faq/AQR91b5(This link is being provided for informational/educational purposes only.) VALPROIC ACID[GINGER]? Collected: 12/22/2022 07:00 AM?Source: [facility] VALPROIC ACID [[id number]] 82.5 mg/L 50. 0-100.0 mg/L CHOLESTEROL, TOTAL[GINGER]?Collected: 10/30/2022 07:00 AM?Source: [facility] CHOLESTEROL, TOTAL [[id number]] 246 mg/dL H 200 mg/dL HDL CHOLESTEROL[GINGER]?Collected: 10/30/2022 07:00 AM?Source: [facility] HDL CHOLESTEROL [[id number]] 36 mg/dL L > OR = 40 mg/dL TRIGLYCERIDES[GINGER]? Collected: 10/30/2022 07:00 AM?Source: [facility] TRIGLYCERIDES [[id number]] 401 mg/dL H 150 mg/dL If a non-fasting specimen wa s collected, considerrepeat triglyceride testing on a fasting specimenif clinically indicated.Matt et al. J. of Clin. Lipidol. 2015;9:129-169. LDL-CHOLESTEROL[GINGER]?Collected: 10/30/2022 07:00 AM?Source: [facility] LDL-CHOLESTEROL [[id number]] SEE NOTE mg/d L (calc) LDL cholesterol not calculat ed. Triglyceride levelsgreater than 400 mg/dL invalidate calculated LDL results.Reference range: or = 2 CHD risk factors.LDL-C is now calculated using the Clyde-Randeecalculation, which is a validated novel method providingbetter accuracy than the Friedewald equation in theestimation of LDL-C.Clyde MANZANO et al. THANG. 2013;310(19): 9300-4705(http://[employer].ThreatMetrix/faq/WUN367) CHOL/HDLC RATIO[GINGER]?Collected: 10/30/2022 07:00 AM?Source: [facility] CHOL/HDLC RATIO [[id number]] 6.8 (calc) H 5 .0 (calc) NON HDL CHOLESTEROL[GINGER]?Collected: 10/30/2022 07:00 AM?Source: [facility] NON HDL CHOLESTEROL [[id number]] 210 mg/dL (calc) H 130 mg/dL (calc) For patients with diabetes p tammie 1 major ASCVD riskfactor, treating to a non-HDL-C goal of 100 mg/dL(LDL-C of <70 mg/dL) is considered a therapeuticoption. COMPREHENSIVE METABOLIC PANE L[GINGER]?Collected: 10/30/2022 07:00 AM?Source: [facility] GLUCOSE [[id number]] 90 mg/dL 65-99 mg/ dL Fasting reference interval UREA NITROGEN (BUN) [[id number]] 16 mg/dL 7-25 mg/dL CREATININE [[id number]] 1.10 mg/dL 0.60-1 .24 mg/dL EGFR [[id number]] 95 mL/min/1.73m2 > OR = 6 0 mL/min/1.73m2 The eGFR is based on the CKD -EPI 2020 equation. To calculatethe new eGFR from a previous Creatinine or Cystatin Cresult, go to https://www.kidney.org/professionals/kdoqi/gfr%5Fcalculator BUN/CREATININE RATIO [02147383] NOT APPL ICABLE (calc) 6-22 (calc) SODIUM [24827087] 138 mmol/L 135-146 mm ol/L POTASSIUM [11998344] 4.1 mmol/L 3.5-5.3 mmol/L CHLORIDE [93723737] 102 mmol/L 98-110 m mol/L CARBON DIOXIDE [35421812] 28 mmol/L 20 -32 mmol/L CALCIUM [81783470] 9.4 mg/dL 8.6-10.3 mg/dL PROTEIN, TOTAL [23661149] 7.1 g/dL 6. 1-8.1 g/dL ALBUMIN [52548306] 4.3 g/dL 3.6-5.1 g /dL GLOBULIN [01347407] 2.8 g/dL (calc) 1.9-3 .7 g/dL (calc) ALBUMIN/GLOBULIN RATIO [95526691] 1.5 (calc) 1.0-2.5 (calc) BILIRUBIN, TOTAL [28767700] 0.3 mg/dL 0.2-1.2 mg/dL ALKALINE PHOSPHATASE [41799921] 51 U/L 36-130 U/L AST [21531573] 46 U/L H 10-40 U/L ALT [41916304] 62 U/L H 9-46 U/L CBC (INCLUDES DIFF/PLT)[GINGER] ?Collected: 10/30/2022 07:00 AM?Source: [facility] WHITE BLOOD CELL COUNT [[id number]] 8.6 Thousand/uL 3.8-10.8 Thousand/uL RED BLOOD CELL COUNT [[id number]] 4.80 Million/uL 4.20-5.80 Million/uL HEMOGLOBIN [[id number]] 14.7 g/dL 13.2-1 7.1 g/dL HEMATOCRIT [[id number]] 43.7 % 38.5-5 0.0 % MCV [[id number]] 91.0 fL 80.0-100.0 fL MCH [[id number]] 30.6 pg 27.0-33.0 pg MCHC [[id number]] 33.6 g/dL 32.0-36.0 g/ dL RDW [[id number]] 14.4 % 11.0-15.0 % PLATELET COUNT [[id number]] 166 Thousand/uL 140-400 Thousand/uL MPV [[id number]] 10.6 fL 7.5-12.5 fL ABSOLUTE NEUTROPHILS [[id number]] 4713 cells/uL 4553-0056 cells/uL ABSOLUTE LYMPHOCYTES [[id number]] 2116 cells/uL 850-3900 cells/uL ABSOLUTE MONOCYTES [[id number]] 1582 cells/uL H 200-950 cells/uL ABSOLUTE EOSINOPHILS [[id number]] 172 cells/uL 15-500 cells/uL ABSOLUTE BASOPHILS [[id number]] 17 cells/uL 0-200 cells/uL NEUTROPHILS [35196903] 54.8 % LYMPHOCYTES [70594846] 24.6 % MONOCYTES [73095651] 18.4 % EOSINOPHILS [79070061] 2.0 % BASOPHILS [28124591] 0.2 % CREATINE KINASE, TOTAL[GINGER]?Collected: 10/30/2022 07:00 AM?Source: [facility] CREATINE KINASE, TOTAL [[id number]] 151 U/L 44-196 U/L HEMOGLOBIN A1c[GINGER]?Collected: 10/30/2022 07:00 AM?Source: [facility] HEMOGLOBIN A1c [[id number]] 5.5 % of total Hgb 5.7 % of total Hgb For the purpose of screening for the presence ofdiabetes: or =6.5% Consistent with diabetesThis assay result is consistent with a decreased riskof diabetes.Currently, no consensus exists regarding use ofhemoglobin A1c for diagnosis of diabetes in children.According to [employer] (ADA)guidelines, hemoglobin A1c 7.0% represents optimalcontrol in non- diabetic patients. Differentmetrics may apply to specific patient populations.Standards of Medical Care in Diabetes(ADA). VITAMIN B12/FOLATE, SERUM PA GINGER[GINGER]?Collected: 10/30/2022 07:00 AM?Source: [facility] VITAMIN B12 [[id number]] 460 pg/mL 200-1 100 pg/mL FOLATE, SERUM [[id number]] 8.9 ng/mL Reference RangeLow: 5.4 VITAMIN B1 (THIAMINE), SERUM /PLASMA, LC/MS/MS[GINGER]?Collected: 10/30/2022 07:00 AM?Source: [facility] VITAMIN B1 (THIAMINE), SERUM/PLASMA, LC/MS/MS [[id number]] 18 nmol/L 8-30 n mol/L Vitamin supplementation with in 24 hours prior toblood draw may affect the accuracy of the results.This test was developed and its analytical performancecharacteristics have been determined by [employer] [place], [place]. It hasnot been cleared or approved by the U.S. Food and DrugAdministration. This assay has been validated pursuantto the CLIA regulations and is used for clinicalpurposes. CBC (INCLUDES DIFF/PLT)[GINGER] ?Collected: 06/26/2022 08:00 AM?Source: [facility] WHITE BLOOD CELL COUNT [[id number]] 8.3 Thousand/uL 3.8-10.8 Thousand/uL RED BLOOD CELL COUNT [[id number]] 4.51 Million/uL 4.20-5.80 Million/uL HEMOGLOBIN [[id number]] 14.4 g/dL 13.2-1 7.1 g/dL HEMATOCRIT [[id number]] 40.6 % 38.5-5 0.0 % MCV [18415716] 90.0 fL 80.0-100.0 fL MCH [[id number]] 31.9 pg 27.0-33.0 pg MCHC [74911715] 35.5 g/dL 32.0-36.0 g/ dL RDW [98105142] 13.9 % 11.0-15.0 % PLATELET COUNT [[id number]] 162 Thousand/uL 140-400 Thousand/uL MPV [[id number]] 10.9 fL 7.5-12.5 fL ABSOLUTE NEUTROPHILS [[id number]] 4150 cells/uL 9496-3784 cells/uL ABSOLUTE LYMPHOCYTES [[id number]] 3154 cells/uL 850-3900 cells/uL ABSOLUTE MONOCYTES [[id number]] 772 cells/uL 200-950 cells/uL ABSOLUTE EOSINOPHILS [[id number]] 183 cells/uL 15-500 cells/uL ABSOLUTE BASOPHILS [70197192] 42 cells/uL 0-200 cells/uL NEUTROPHILS [77797780] 50 % LYMPHOCYTES [06454656] 38.0 % MONOCYTES [78888398] 9.3 % EOSINOPHILS [28064607] 2.2 % BASOPHILS [76656404] 0.5 % VALPROIC ACID[GINGER]? Collected: 06/26/2022 08:00 AM?Source: [facility] VALPROIC ACID [[id number]] 101.1 mg/L H 50. 0-100.0 mg/L CHOLESTEROL, TOTAL[GINGER]?Collected: 04/18/2022 07:00 AM?Source: [facility] CHOLESTEROL, TOTAL [[id number]] 254 mg/dL H 200 mg/dL HDL CHOLESTEROL[GINGER]?Collected: 04/18/2022 07:00 AM?Source: [facility] HDL CHOLESTEROL [[id number]] 37 mg/dL L > OR = 40 mg/dL TRIGLYCERIDES[GINGER]? Collected: 04/18/2022 07:00 AM?Source: [facility] TRIGLYCERIDES [[id number]] 266 mg/dL H 150 mg/dL If a non-fasting specimen wa s collected, considerrepeat triglyceride testing on a fasting specimenif clinically indicated.Matt et al. J. of Clin. Lipidol. 2015;9:129-169. LDL-CHOLESTEROL[GINGER]?Collected: 04/18/2022 07:00 AM?Source: [facility] LDL-CHOLESTEROL [[id number]] 173 mg/dL (calc) H Reference range: or = 2 CHD risk factors.LDL-C is now calculated using the Clyde-Randeecalculation, which is a validated novel method providingbetter accuracy than the Friedewald equation in theestimation of LDL-C.Clyde MANZANO et al. THANG. 2013;310(19): 3088-0079(http://education.ThreatMetrix/faq/QCO985) CHOL/HDLC RATIO[GINGER]?Collected: 04/18/2022 07:00 AM?Source: [facility] CHOL/HDLC RATIO [[id number]] 6.9 (calc) H 5 .0 (calc) NON HDL CHOLESTEROL[GINGER]?Collected: 04/18/2022 07:00 AM?Source: [facility] NON HDL CHOLESTEROL [[id number]] 217 mg/dL (calc) H 130 mg/dL (calc) For patients with diabetes p tammie 1 major ASCVD riskfactor, treating to a non-HDL-C goal of 100 mg/dL(LDL-C of <70 mg/dL) is considered a therapeuticoption. COMPREHENSIVE METABOLIC PANE L[GINGER]?Collected: 04/18/2022 07:00 AM?Source: [facility] GLUCOSE [[id number]] 78 mg/dL 65-99 mg/ dL Fasting reference interval UREA NITROGEN (BUN) [[id number]] 16 mg/dL 7-25 mg/dL CREATININE [[id number]] 1.11 mg/dL 0.60-1 .24 mg/dL EGFR [[id number]] 94 mL/min/1.73m2 > OR = 6 0 mL/min/1.73m2 The eGFR is based on the CKD -EPI 2020 equation. To calculatethe new eGFR from a previous Creatinine or Cystatin Cresult, go to https://www.kidney.org/professionals/kdoqi/gfr%5Fcalculator BUN/CREATININE RATIO [[id number]] NOT APPL ICABLE (calc) 6-22 (calc) SODIUM [[id number]] 138 mmol/L 135-146 mm ol/L POTASSIUM [[id number]] 4.7 mmol/L 3.5-5.3 mmol/L CHLORIDE [[id number]] 101 mmol/L 98-110 m mol/L CARBON DIOXIDE [[id number]] 29 mmol/L 20 -32 mmol/L CALCIUM [[id number]] 9.9 mg/dL 8.6-10.3 mg/dL PROTEIN, TOTAL [[id number]] 7.2 g/dL 6. 1-8.1 g/dL ALBUMIN [[id number]] 4.5 g/dL 3.6-5.1 g /dL GLOBULIN [[id number]] 2.7 g/dL (calc) 1.9-3 .7 g/dL (calc) ALBUMIN/GLOBULIN RATIO [[id number]] 1.7 (calc) 1.0-2.5 (calc) BILIRUBIN, TOTAL [[id number]] 0.4 mg/dL 0.2-1.2 mg/dL ALKALINE PHOSPHATASE [[id number]] 57 U/L 36-130 U/L AST [[id number]] 19 U/L 10-40 U/L ALT [[id number]] 25 U/L 9-46 U/L HEMOGLOBIN A1c[GINGER]?Collected: 04/18/2022 07:00 AM?Source: [facility] HEMOGLOBIN A1c [[id number]] 5.3 % of total Hgb 5.7 % of total Hgb For the purpose of screening for the presence ofdiabetes: or =6.5% Consistent with diabetesThis assay result is consistent with a decreased riskof diabetes.Currently, no consensus exists regarding use ofhemoglobin A1c for diagnosis of diabetes in children.According to Stateless Diabetes Association (ADA)guidelines, hemoglobin A1c 7.0% represents optimalcontrol in non- diabetic patients. Differentmetrics may apply to specific patient populations.Standards of Medical Care in Diabetes(ADA). Allergies, adverse reactions, alerts No known allergies and adverse reactions Medications No administered medications reported Vital Signs No vital signs reported Social History No smoking Hx information available
--- NOTE | 2024-07-09 21:12 | PC.NURSE ---
client comes up to t/w im not safe to be in the cmty, i want to go inpatient t/w told client they could explain this to them in the am. patient then starts to issue frequent requests.
[2024-07-09] MEDS: risperiDONE 3 MG TABLET PO (22:19)
[2024-07-09] MEDS: Divalproex Sodium 500 MG TABLET.DR PO (22:19)
[2024-07-09] MEDS: Melatonin 3 MG TABLET 6 MG PO (22:19)
[2024-07-09] MEDS: busPIRone HCl 5 MG TABLET 15 MG PO (22:19)
--- NOTE | 2024-07-10 08:00 | PC.NURSE ---
Pt. refusing VS
[2024-07-10] MEDS: Divalproex Sodium 500 MG TABLET.DR PO (10:03)
[2024-07-10] MEDS: busPIRone HCl 5 MG TABLET 15 MG PO (10:03)
--- NOTE | 2024-07-10 10:06 | PC.NURSE ---
Awaiting 09:00 Kerri per pharmacy at this time.
[2024-07-10] MEDS: PARoxetine HCL 10 MG TABLET PO (10:30)
[2024-07-10] MEDS: LORazepam 1 MG TABLET 2 MG PO (11:03)
--- NOTE | 2024-07-10 11:03 | PC.NURSE ---
Pt. has been calm all morning. Now, suddenly, pt. is escalating- pacing around pod, tickling and giggling at the community pt. phone while clutching it, singing and shouting loudly, and giving staff members the middle finger, stating that the finger is a term of endearment . NADEEM Solitario notified and Ativan 2mg PO ordered as a one-time dose. Pt. also requesting a side of barrera per cafeteria at this time. Barrera provided.
--- NOTE | 2024-07-10 13:00 | PC.NURSE ---
Pt. refusing VS
--- NOTE | 2024-07-10 13:15 | PC.NURSE ---
Shannon Bedoya from Care Team [facility] coordinated for pt.'s safe d/c to [employer].
--- NOTE | 2024-07-10 13:25 | PHA.MEDREC ---
Pharmacy Consult ? Medication Reconciliation Pharmacy has reviewed the medication reconciliation completed by nursing, called [facility] to compare and added a couple others.
[2024-07-10 14:03] VITALS: BP 0/0; PULSE 0; RESP 0; TEMP -17.7; TEMP 0; O2SAT 0
== END 2024-07-10 14:03 | disposition home or self-care (01) ==
PROVIDERS: Emergency Provider Emergency Medicine
DX: R44.0 Auditory hallucinations (principal); Z51.81 Encounter for therapeutic drug level monitoring; Z79.899 Other long term (current) drug therapy
CPT/HCPCS: 36415; 80053; 80164; 80307; 81003; 85025; 99284; S9485

== ENCOUNTER 2024-07-19 19:21 | Emergency (ER) | payer OTHER, SELFPAY ==
[2024-07-19 19:34] VITALS: BP 133/73; BP 139/82; PULSE 68; PULSE 98; RESP 18; TEMP 36.6; O2SAT 95; O2SAT 98; BMI 32.3
--- OUTSIDE RECORDS SUMMARY | 2024-07-19 19:34 | XMS_ITS | Encounter Summary ---
Author Organization [facility] Address [address] [place] [address] Phone Care Team Providers Care Tax Compliance Agent Name Role Phone Alvaro Singleton MD Primary Care Provider [phone] Encounter Details Date Type Department Care Team (Late st Contact Info) Description 04/07/2019 Conversion Encounter [facility] [address] [place] [address] Alvaro Singleton MD [address] [place] [address] Social History Tobacco Use Types Packs/Day Years Used Date Smoking Tobacco: Never Assessed Sex and Gender Information Value Date Recorded Sex Assigned at Not on file Legal Sex Male 6:39 PM EST Gender Identity Not on file Sexual Orientation Not on file documented as of this encounter Plan of Treatment Not on file documented as of this encounter Visit Diagnoses Not on filedocumented in this encounter Care Teams Tax Compliance Agent Relationship Specialty Start Date End Date Alvaro Singleton MD [address] [place] [address] PCP - General 05/23/11 12/06/20 documented as of this encounter
--- OUTSIDE RECORDS SUMMARY | 2024-07-19 19:34 | XMS_ITS | Clinical Summary ---
Author Organization [facility] ity Address [address] [place] [address] Care Team Providers Care Clutch Rebuilder Name Role Phone Unavailable Primary Care Provider Unavailabl e Immunizations Name Administration Dates Next Due Moderna SARS-CoV-2 COVID-19, mRNA, LNP-S, preservative free 07/27/2021,11/09/2020,10/12/2020 Social History Tobacco Use Types Packs/Day Years Used Date Smoking Tobacco: Never Assessed Sex and Gender Information Value Date Recorded Sex Assigned at Not on file Gender Identity Not on file Sexual Orientation Not on file Obstetrics History Plan of Treatment Health Maintenance Due Date Last Done Comments DTaP,Tdap,and Td Vaccines (1 - Tdap) 11/30/2014 Hepatitis B Vaccines (1 of 3 - 19+ 3-dose series) 11/30/2014 Depression Screening 01/16/2024 HIV Screening 01/16/2024 Hepatitis C Screening 01/16/2024 Social Influencers of Health Screening 01/16/2024 COVID-19 Vaccine (2023-2 5 season) 2024 07/27/2021, 11/09/2020, 10/12/2020 Influenza Vaccine (#1) 2024 HIB Vaccines Aged Out No longer eligi ble based on patient's age to complete this topic HPV Vaccines Aged Out No longer eligi ble based on patient's age to complete this topic Hepatitis A Vaccines Aged Out No long er eligible based on patient's age to complete this topic IPV Vaccines Aged Out No longer eligi ble based on patient's age to complete this topic MMR Vaccines Aged Out No longer eligi ble based on patient's age to complete this topic Meningococcal ACWY Vaccine Aged Out N o longer eligible based on patient's age to complete this topic Pneumococcal Vaccine: Pediatrics (0 to 5 Years) and At-Risk Patients (6 to 64 Years) Aged Out No longer eligible b ased on patient's age to complete this topic RSV Immunization Patients Under 20 months Aged Out No longer eligible b ased on patient's age to complete this topic Varicella Vaccines Aged Out No longer eligible based on patient's age to complete this topic
--- OUTSIDE RECORDS SUMMARY | 2024-07-19 19:34 | XMS_ITS | Clinical Summary ---
Author Organization [facility] Address [address] [place] [address] Care Team Providers Care Fire Prevention Officer Name Role Phone Narda Le MARCOKELIN Primary Care Provider [phone] Source Comments PLEASE NOTE, if this patient is a minor, it may be UNLAWFUL to discuss sensitive information that is contained in these records (such as FAMILY PLANNING, MENTAL HEALTH or SUBSTANCE ABUSE) with the minor patient's parent or other person without the patient's specific authorization.[facility] Allergies Active Allergy Reactions Criticality Noted Date Comments Cats 01/10/2018 Dust 01/10/2018 Medications * This document contains information received from the source organization and may not represent a complete record from that organization. polyethylene glycol 3350 (GLYCOLAX, MIRALAX) 17 gram/dose powder Take 17 g by mouth twice a week 238 g 3 8 Active MAPAP, ACETAMINOPHEN, 325 mg tablet Take 2 Tabs by mouth 3 (three) times daily as needed for pain 180 Tab 1 8 Active fluticasone (FLONASE ALLERGY RELIEF) 50 mcg/actuation nasal sprayIndications :Allergic rhinitis due to other allergic trigger, unspecified seasonality Place 1 [place] in both nostrils 2 (two) times daily as needed for rhinitis or allergies 16 g 3 9 Active cloNIDine (CATAPRES) 0.1 mg tabletIndication s:Mood disorder (HCC-CMS) Take 1 Tablet by mouth 2 (two) times daily 60 Tablet 3 Active risperiDONE (RISPERDAL) 2 mg tabletIndication s:Mood disorder ([facility]) Take 1 Tablet by mouth 2 (two) times daily 60 Tablet 3 Active QUEtiapine (SEROQUEL) 50 mg tablet Take 1 Tablet by mouth nightly at bedtime May take additional 1/2 tab (25mg) every 12 hours as needed for anxiety/agitati on 60 Tablet 3 Active divalproex (DEPAKOTE) [address] tablet Take 1 Tablet by mouth 2 (two) times daily 60 Tablet 3 Active Active Problems Problem Noted Date Diagnosed Date Pervasive developmental disorder 10/20/2021 Hypercholesterolemia 10/18/2020 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 Hypertrophy of left masseter muscle 10/18/2020 Bipolar depression ([facility]) 11/06/2019 Overview (11/06/2019): PST admit [facility] 10/26-10/31/19 bipolar depressed Recurrent major depressive disorder ([facility]) Allergic rhinitis 05/07/2018 Generalized anxiety disorder 05/07/2018 Drug exposure, gestational 05/07/2018 Developmental delay 02/21/2018 Mood disorder ([facility]) 02/21/2018 Resolved Problems Problem Noted Date Diagnosed Date Resolved Date Complex care coordination 07/09/2018 Immunizations Name Administration Dates Next Due DTAP, UNSPECIFIED 03/11/2001, 7,10/22/1996,09/18 DTP 02/22/1996 Flu, Preservative Free 09/09/2020,02/20/2019, HEP A, UNSPECIFIED 09/30/2013,03/28/2013 HEP B,ADULT 01/10/1999, 7,1995,11/30 Hpv, Unspecified 09/27/2012,05/28/2012, 2 INFLUENZA, UNSPECIFIED 04/01/2015,2013,03/28/2013,03/29,03/30/2011 IPV 03/11/2001, 7,10/22/1996,02/21 MENINGOCOCCAL MCV4, HISTORICAL 03/28/2012,2008 MMR (MMR II/Priorix) 03/11/2001,11/20/1997 Moderna COVID-19 Vaccine, re d cap blue label, 12+ Primary Series 07/27/2021,11/09/2020,10/12/2020 PPD 10/29/2018 TDAP 10/21/2018,03/30/2009 Varicella, Live Vaccine 03/30/2009,02/15/1999 Family History Medical History Relation Name Comments Alcohol/Drug Abuse Brother Alcohol/Drug Abuse Mother Other (See Comments) Mother severe mental illness Other (See Comments) Sister develop mental delay and mental illnss Diabetes Neg Glaucoma Neg Hypertension Neg Macular degeneration Neg Relation Name Status Comments Brother Alive Father Alive Mother Alive Sister Alive Social History Tobacco Use Types Packs/Day Years Used Date Smoking Tobacco: Never Smokeless Tobacco: Never Tobacco Cessation:Counseling Given: Yes Alcohol Use Standard Drinks/Week Comments No 0 (1 standard drink = 0.6 oz pur e alcohol) Social Connections Answer Date Recorded Connectedness 0 08/09/2018 Financial Resource Strain Answer Date R ecorded Financial Resource Strain 0 2018 Stress Answer Date Recorded Stress 0 08/09/2018 Physical Activity Answer Date Recorded Physical Activity 0 08/09/2018 Food Insecurity Answer Date Recorded Food 0 10/30/2022 Transportation Needs Answer Date Record ed Transportation 0 10/30/2022 Housing Stability Answer Date Recorded Housing 0 10/30/2022 Safety and Environment Answer Date Kurt rded Safety 0 08/09/2018 Utilities Answer Date Recorded Utilities 0 10/30/2022 Employment Answer Date Recorded Stress 0 10/30/2022 Sex and Gender Information Value Date Recorded Sex Assigned at Male 05/07/2018 10:35 AM PST Legal Sex Male 9:01 AM PDT Gender Identity Male 05/07/2018 10:35 AM PST Sexual Orientation Straight 05/07/2018 10 :35 AM PST Last Filed Vital Signs Vital Sign Reading Time Taken Comments Blood Pressure 123/79 10/30/2022 2:24 PM EDT Pulse 107 10/30/2022 2:24 PM EDT Temperature 36.2 ??C (97.2 ??F) 10/30/2022 2:24 PM ED T Respiratory Rate - - Oxygen Saturation 97% 10/30/2022 2:24 PM EDT Inhaled Oxygen Concentration - - Weight 78.9 kg (174 lb) 10/30/2022 2:24 PM EDT Height 165.7 cm (5' 5.25 ) 10/30/2022 2:24 PM ED T Body Mass Index 28.73 10/30/2022 2:24 PM EDT Plan of Treatment Health Maintenance Due Date Last Done Comments Tobacco Screening 10/20/2022 10/20/2021 Depression Monitoring 01/30/2023 10/30/2022 , 10/20/2021, 10/18/2020, Additional history exists Hypertension Screening (#1) 10/30/2023 Medicare Annual Wellness Visit 10/31/2023 10/30/2022 , 10/20/2021 Red-[id number]-95 ( season) 2024 04/06/2022, 07/27/2021, 11/09/2020, Additional history exists Imm-Influenza (#1) 2024 09/09/2020, 0 02/20/2019, 05/07/2018, Additional history exists Lipid Screening 05/16/2024 05/16/2023, 03/18, 10/30/2022, Additional history exists Alcohol and Drug Screen 06/18/2024 10/31/19, 10/20/2021, 08/15/2018, Additional history exists Diabetes Screening 08/15/2024 08/15/2023, 1 07/31/2022, 05/16/2023, Additional history exists Imm-DTaP/Tdap/Td (8 - Td or Tdap) 10/21/2028 10/21/2018, 03/30/2009, 03/11/2001, Additional history exists Imm-Hepatitis B Completed 01/10/1999, 0408/1996, 1995, Additional history exists Hepatitis C Screening Completed 01/02/2019 HIV Screening Completed 04/18/2022, 01/02/2019 Goals Goal Patient Goal Type Associated Problems Recent Progress Patient-Stated? Author Transition from [facility] to [facility] program General On track( 019 1:14 PM PST) Yes Siria Hunt, RN Note: Patient/guardian requesting assistance with transition from [facility] to [facility] program. 07/09/18 - Guardian and Devyn met with [facility] to discuss transition into [facility]DS program. Declined change in program. 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 See note. 07/23/18 - referred to [facility] for assistance with program enrollment 07.31.18 -documents obtained for damian. Site visit at [facility] 08/01/18 9:30AM. 08.06.18 DDS and [facility] apps in process. Neuropsych eval to be referred and scheduled. ROIs signed. 08.22.18 [facility] application completed and submitted. Devyn elsaed. Director advised to f/u in 3 weeks. Next step for DDS services is to schedule Neuropsych eval. Referral in process. 09.10.18 Neuropsych scheduled for 09/11/18. Provided Mom packet of info to bring to testing. Will be following up on [facility] application and physical exam/ immunizations. 09.17.18 Neuropsych completed. CPE and PPD test scheduled for October. Will be in touch with [facility] as soon as this appt is completed. Counseling General On track( 019 1:53 PM PDT) Yes Beverly Randhawa, BETHEL Note: 09.10.18 Devyn agreeable to counseling. Will be referred to department and bridged until he can be assigned. Will schedule first counseling appt during next appt. 09.17.18 First counseling appt scheduled Procedures Procedure Name Priority Date/Time Associated Diagnosis Comments COMPREHENSIVE METABOLIC PANEL Routine 10/30/2022 3:34 PM EDT LIPID PANEL Routine 10/30/2022 3:34 PM EDT HIV 1/2 AG & AB W/RFLX (4TH GEN) Routine 04/18/2022 10:20 AM EDT Encounter for screening for HIV from Last 3 Months or Most Recently Relevant to Health Maintenance Results * (ABNORMAL) LIPID PANEL (10/30/2022 3:34 PM EDT) CHOLESTEROL, TOTAL 246(H) <200 mg/dL 10/31/2022 7:47 AM EDT [facility] HDL CHOLESTEROL 36(L) > OR = 40 mg/dL 10/31/2022 7:47 AM EDT [facility] TRIGLYCERIDES 401(H) <150 mg/dL 10/31/2022 7:47 AM EDT [facility] LDL-CHOLESTEROL SEE NOTE mg/dL (calc) 10/31/2022 7:47 AM EDT [facility] CHOL/HDLC RATIO 6.8(H) <5.0 (calc) 10/31/2022 7:47 AM EDT [facility] NON-HDL CHOLESTEROL 210(H) <130 mg/dL (calc) 10/31/2022 7:47 AM EDT [facility] 10/30/2022 3:34 PM EDT 10/31/2022 3:22 AM EDT Narrative [facility] - 11/05/2022 11:57 AM EDT . If a non-fasting specimen was collected, consider repeat triglyceride testing on a fasting specimen if clinically indicated. Matt et al. J. of Clin. Lipidol. 2015;9:129-169. . . LDL cholesterol not calculated. Triglyceride levels greater than 400 mg/dL invalidate calculated LDL results. . Reference range: <100 . Desirable range <100 mg/dL for primary prevention; ?? <70 mg/dL for patients with CHD or diabetic patients with > or = 2 CHD risk factors. . LDL-C is now calculated using the Clyde-Randee calculation, which is a validated novel method providing better accuracy than the Friedewald equation in the estimation of LDL-C. Clyde MANZANO et al. THANG. 2013;310(19): 0587-0502 (http://education.SciAps.Genmab/faq/YGS353) For patients with diabetes plus 1 major ASCVD risk factor, treating to a non-HDL-C goal of <100 mg/dL (LDL-C of <70 mg/dL) is considered a therapeutic option. us Narda AZEVEDO LAB - BLOOD DRAW Final Result [facility] [address] [address], [facility] [address] [address] * (ABNORMAL) COMPREHENSIVE METABOLIC PANEL (10/30/2022 3:34 PM EDT) [facility] [address] GLUCOSE 90 65 - 99 mg/dL 10/31/2022 7:47 AM [facility] UREA NITROGEN (BUN) 16 7 - 25 mg/dL 10/31/2022 7:47 AM [facility] CREATININE (blood) 1.10 0.60 - 1.24 mg/dL 10/31/2022 7:47 AM [facility] EGFR 95 > OR = 60 mL/min/1 .73m2 10/31/2022 7:47 AM [facility] BUN/CREATININE RATIO NOT APPLICABLE 6 - (calc) 10/31/2022 7:47 AM [facility] SODIUM 138 135 - 146 mmol/L 10/31/2022 7:47 AM [facility] POTASSIUM 4.1 3.5 - 5.3 mmol/L 10/31/2022 7:47 AM [facility] CHLORIDE 102 98 - 110 mmol/L 10/31/2022 7:47 AM [facility] CARBON DIOXIDE 28 20 - 32 mmol/L 10/31/2022 7:47 AM [facility] CALCIUM 9.4 8.6 - 10.3 mg/dL 10/31/2022 7:47 AM [facility] PROTEIN, TOTAL 7.1 6.1 - 8.1 g/dL 10/31/2022 7:47 AM [facility] ALBUMIN 4.3 3.6 - 5.1 g/dL 10/31/2022 7:47 AM [facility] GLOBULIN 2.8 1.9 - 3.7 g/dL (calc) 10/31/2022 7:47 AM [facility] ALBUMIN/GLOBUL IN RATIO 1.5 1.0 - 2.5 (calc) 10/31/2022 7:47 AM [facility] BILIRUBIN, TOTAL 0.3 0.2 - 1.2 mg/dL 10/31/2022 7:47 AM [facility] ALKALINE PHOSPHATASE 51 36 - 130 U/L 10/31/2022 7:47 AM EDT [facility] AST 46(H) 10 - 40 U/L 10/31/2022 7:47 AM EDT [facility] ALT 62(H) 9 - 46 U/L 10/31/2022 7:47 AM EDT [facility] 10/30/2022 3:34 PM EDT 10/31/2022 3:22 AM EDT Narrative [facility] - 11/05/2022 11:57 AM EDT . ? Fasting reference interval . The eGFR is based on the CKD-EPI 2020 equation. To calculate the new eGFR from a previous Creatinine or Cystatin C result, go to https://www.kidney.org/professionals/ kdoqi/gfr%5Fcalculator Narda Le CFNP LAB - BLOOD DRAW Final Result [facility] [address] [address], [facility] [address] [address] * HIV 1/2 AG & AB W/RFLX (4TH GEN) (04/18/2022 10:20 AM EDT) HIV AG/AB, 4TH GEN NON-REAC TIVE NON-REAC TIVE [facility] Comment: HIV-1 antigen and HIV-1/HIV-2 antibodies were not detected. There is no laboratory evidence of HIV infection. PLEASE NOTE: This information has been disclosed to you from records whose confidentiality may be protected by state law. ??If your state requires such protection, then the state law prohibits you from making any further disclosure of the information without the specific written consent of the person to whom it pertains, or as otherwise permitted by law. A general authorization for the release of medical or other information is NOT sufficient for this purpose. ?? For additional information please refer to http://education.Maicoin.Genmab/faq/IFX579 (This link is being provided for informational/ educational purposes only.) The performance of this assay has not been clinically validated in patients less than 2 years old. Blood Blood / Unknown 04/18/2022 1 0:20 AM EDT 04/18/2022 10:20 AM EDT Narrative [facility] - 04/18/2022 8:35 PM EDT FASTING:YES us Narda Le JOLLY LAB - BLOOD DRAW Final Result [facility] [address] [address], [facility] [address] [address] from Last 3 Months or Most Recently Relevant to Health Maintenance [place] [facility] Member Subscriber Plan / Payer (Ef fective 2022-Present) Name:Misbah Chirinosus Relation to Subscriber:Self Name:Devyn Chirinos Payer ID:[id number] Group ID:Not on file Type:Medicare Address: [address] [place] [address] Care Teams Fire Prevention Officer Relationship Specialty Start Date End Date LeNarda CFNP [address] [place] [id number] PCP - General 06/28/20 Ryland Koehler legal guardian, real estate attorney 01/05/23 Yvrose Lopez [facility] Oxygen System Tester 04/16/23
--- OUTSIDE RECORDS SUMMARY | 2024-07-19 19:34 | XMS_ITS | Clinical Summary ---
Author Organization [facility] Address [address] [place] [address] Phone Care Team Providers Care Custodian Athletic Equipment Name Role Phone Zachary Jones Primary Care Provider [phone] Allergies Active Allergy Reactions Criticality Noted Date Comments Benztropine Other (see comments) 09/26/2023 Dust Mite Extract 01/10/2018 Medications cloNIDine (CATAPRES) 0.1 MG tablet Take 0.1 mg by mouth 1 Active diphenhydrAMINE (BENADRYL) 50 MG tablet Take 50 mg by mouth nightly as needed Active haloperidol (HALDOL) 5 MG tablet Take 5 mg by mouth two times a day as needed 4 Active hydrOXYzine (ATARAX) 50 MG tablet Take 50 mg by mouth three times a day 3 Active LORazepam (ATIVAN) 1 MG tablet Take 1 mg by mouth two times a day as needed for anxiety 3 Active ibuprofen (ADVIL,MOTRIN) 600 MG tablet Take 1 tablet (600 mg) by mouth every six hours as needed for pain 1-3, pain 4-6, fever (greater than 101 degree F) or headaches for up to 30 doses 30 tablet 4 Active acetaminophen (TYLENOL) 500 MG tablet Take 1 tablet (500 mg) by mouth every six hours as needed for pain 1-3, pain 4-6, headaches or fever (greater than 101 degree F) 30 tablet 4 Active divalproex (DEPAKOTE) 250 MG EC tablet Take 750 mg by mouth two times a day Active risperiDONE (RisperDAL) 2 MG tablet Take 3 mg by mouth two times a day Active loratadine (CLARITIN) 10 MG tablet Take 10 mg by mouth daily Active ondansetron ODT (ZOFRAN-ODT) 4 MG disintegrating tablet Take 4 mg by mouth every six hours as needed for nausea or vomiting Active Active Problems Problem Noted Date Diagnosed Date Autism 07/22/2023 Intellectual disability 07/22/2023 Bipolar 1 disorder 06/01/2023 Social History Tobacco Use Types Packs/Day Years Used Date Smoking Tobacco: Never Smokeless Tobacco: Never Alcohol Use Standard Drinks/Week Comments Never 0 (1 standard drink = 0.6 oz pur e alcohol) Sex and Gender Information Value Date Recorded Sex Assigned at Not on file Legal Sex Male 7:11 AM EST Gender Identity Not on file Sexual Orientation Not on file Last Filed Vital Signs Vital Sign Reading Time Taken Comments Blood Pressure 101/67 10/27/2023 1:46 AM EDT Pulse 91 10/27/2023 1:46 AM EDT Temperature 36.6 ??C (97.9 ??F) 10/27/2023 1:46 AM ED T Respiratory Rate 17 10/27/2023 1:46 AM EDT Oxygen Saturation 98% 10/27/2023 1:46 AM EDT Inhaled Oxygen Concentration - - Weight 77.1 kg (170 lb) 10/26/2023 5:12 PM EDT Height 165.1 cm (5' 5 ) 10/26/2023 5:12 PM EDT Body Mass Index 28.29 10/26/2023 5:12 PM EDT Plan of Treatment Health Maintenance Due Date Last Done Comments [facility] Topic HIV Screening 1995 [facility] Topic Hepatitis C Screening 1995 [facility] Topic Depression Screening 2007 [facility] Topic Tdap Vaccine (1 - Tdap) 11/30/2014 [facility] Topic Influenza (Flu) Seasonal (#1) 2024 04/01/2015, 04/01/2014, 04/01/2014, Additional history exists [facility] Topic Lipid Profile 5 years 05/16/2028 05/16/2023, 10/30/2022 [facility] Topic HPV Vaccines Completed 2012, 09/27/2012, 05/28/2012, Additional history exists Insurance [facility] Advance Directives For more information, please contact: [phone] * Full Code (Latest Code Status on File) Date Activated Date Inactivated Comments 06/01/2023 2:20 PM 06/03/2023 7:39 PM Question Answer Comments Cardiopulmonary Resuscitatio n: for a patient in cardiac or respiratory arrest (Full Code = Attempt Resuscitation, DNR = Do not attempt resuscitation): Full Code Ventilation: for a patient in respiratory distre ss: Intubate and Ventilate Care Teams Custodian Athletic Equipment Relationship Specialty Start Date End Date Zachary Jones [address] [place] [id number] PCP - General Internal Medicine 07/05/23
--- OUTSIDE RECORDS SUMMARY | 2024-07-19 19:35 | XMS_ITS | Encounter Summary ---
Author Organization [facility] Address [phone] [place] [address] Care Team Providers Care Quality Consultant Name Role Phone Unknown, Unknown Primary Care Provider Dar Barragan MD Unavailable [phone] Pcp, Unknown Primary Care Provider Unavailabl e Pcp, Unknown Primary Care Provider Unavailabl e Encounter Details Date Type Department Care Team (Late st Contact Info) Description 09/23/2020 Procedure Pass [facility] - MRI, [address] [address] Social History Tobacco Use Types Packs/Day Years Used Date Smoking Tobacco: Never Smokeless Tobacco: Never Alcohol Use Standard Drinks/Week Comments Never 0 (1 standard drink = 0.6 oz pur e alcohol) Sex and Gender Information Value Date Recorded Sex Assigned at Male 05/08/2024 2:44 AM EST Gender Identity Male 05/29/2024 5:11 PM EST Sexual Orientation Straight 05/29/2024 5: 11 PM EST documented as of this encounter Plan of Treatment Not on file documented as of this encounter Visit Diagnoses Not on filedocumented in this encounter Additional Health Concerns Infection Onset Date Last Indicated Resolved Time CoV-Exposed Comment:Recent close contact documented in the Travel/Symptom Screening Form 06/08/2024 06/08/2024 06/19/2024 1:[address] CoV-Risk 07/14/2024 07/14/2024 documented as of this encounter Care Teams Quality Consultant Relationship Specialty Start Date End Date Unknown, Unknown, PCP - General 09/14/20 08/06/23 Pcp, Unknown PCP - General 08/07/23 08/14/23 Pcp, Unknown PCP - General 08/15/23 Dar Jordan MD [address] [place] [address] Referring Physician Internal Medicine 09/23/20 documented as of this encounter Additional Source Comments The information contained in this document represents components of the legal health record. It is not the complete legal health record.[facility]
--- OUTSIDE RECORDS SUMMARY | 2024-07-19 19:35 | XMS_ITS | Clinical Summary ---
Author Organization [facility] Address [address] [place] [address] Care Team Providers Care Software Quality Engineer Name Role Phone Alvaro Singleton Primary Care Provider Allergies No known active allergies Social History Tobacco Use Types Packs/Day Years Used Date Smoking Tobacco: Never Assessed Sex and Gender Information Value Date Recorded Sex Assigned at Not on file Legal Sex Male 11:43 AM EDT Gender Identity Not on file Sexual Orientation Not on file Last Filed Vital Signs Vital Sign Reading Time Taken Comments Blood Pressure 102/51 02/07/2023 4:34 AM EDT Pulse 68 02/07/2023 4:34 AM EDT Temperature 36.8 ??C (98.2 ??F) 02/07/2023 4:34 AM ED T Respiratory Rate 16 02/07/2023 4:34 AM EDT Oxygen Saturation 97% 02/07/2023 4:34 AM EDT Inhaled Oxygen Concentration - - Weight 77.1 kg (170 lb) 02/07/2023 4:34 AM EDT Height - - Body Mass Index - - Plan of Treatment Health Maintenance Due Date Last Done Comments HIV Screening 1995 Hepatitis C Screening 1995 COVID-19 Vaccine ( season) 2024 04/06/2022, 07/27/2021, 11/09/2020, Additional history exists Influenza Vaccine (#1) 2024 , 02/20/2019, 05/07/2018, Additional history exists Alcohol/Substance Use Screening 06/18/2024 Depression Screening and Follow-Up 06/18/2024 Social Drivers of Health Annual Screening 06/18/2024 DTaP,Tdap,and Td Vaccines (8 - Td or Tdap) 10/21/2028 10/21/2018, 03/30/2009, 03/11/2001, Additional history exists RSV Vaccine (60+ years old and patients) (1 - 1-dose 75+ series) 11/30/2070 Hepatitis B Vaccines Completed 01/10/1999, 01/10/1999, 09/18/1996, Additional history exists Varicella Vaccines Completed 03/30/2009, 02/15/1999 Pneumococcal Vaccine: Pediatric (0-5 Years) and At-Risk Patients (6-64 Years) Aged Out No longer eligible based on patient's age to complete this topic Insurance MEDICARE [facility] Care Teams Software Quality Engineer Relationship Specialty Start Date End Date Alvaro Singleton [address] [place] [address] PCP - General 01/04/17
--- OUTSIDE RECORDS SUMMARY | 2024-07-19 19:35 | XMS_ITS | Referral Summary ---
Author Organization [facility] Address [address] [place] [address] Care Team Providers Care Shop Director Name Role Phone Alvaro Singleton Primary Care Provider [phone] Allergies No known active allergies Social History [...] Mass Index - - Plan of Treatment Not on file Insurance MEDICARE [facility] D[facility] Care Teams Shop Director Relationship Specialty Start Date End Date Alvaro Singleton [address] [place] [address] PCP - General 01/04/17
--- OUTSIDE RECORDS SUMMARY | 2024-07-19 19:36 | XMS_ITS | Encounter Summary ---
Author Organization [facility] Address [address] [place] [address] Care Team Providers Care Receiving Checker Name Role Phone Reza Carrasco Unavailable Reza Carrasco Primary Care Provider Encounter Details Date Type Department Care Team (Late st Contact Info) Description 10/20/2023 Procedure Pass [facility] - [address] [id number] Social History Tobacco Use Types Packs/Day Years Used Date Smoking Tobacco: Never Assessed Sex and Gender Information Value Date Recorded Sex Assigned at Not on file Legal Sex Male 10:15 AM EDT Gender Identity Not on file Sexual Orientation Not on file documented as of this encounter Plan of Treatment Not on file documented as of this encounter Visit Diagnoses Not on filedocumented in this encounter Care Teams Receiving Checker Relationship Specialty Start Date End Date Reza Carrasco [address] [place] [address] PCP - Family Medicine 01/22/15 Reza Carrasco [address] [place] [address] PCP - General 01/22/15 documented as of this encounter
--- OUTSIDE RECORDS SUMMARY | 2024-07-19 19:36 | XMS_ITS | Encounter Summary ---
Author Organization [facility] Address [phone] [place] [id number] Care Team Providers Care Telephone Repairer Name Role Phone Dar Jordan MD Unavailable [phone] Pcp, Unknown Primary Care Provider Unavailabl e Reason for Visit * Reason Comments Abdominal Pain Encounter Details Date Type Department Care Team (Late st Contact Info) Description 06/27/2024 10:21 PM EST - 06/28/2024 5:10 AM EST Emergency [facility] Emergency Department [address] [place] [address] Isaiah Cortes MD [address] [place] [id number] [email or web address] Discharge Disposition: Jail Facility Social History Tobacco Use Types Packs/Day Years Used Date Smoking Tobacco: Every Day Cigarettes Smokeless Tobacco: Never Alcohol Use Standard Drinks/Week Comments Yes 0 (1 standard drink = 0.6 oz pur e alcohol) Education Answer Date Recorded Are you interested in more education? Not on mati e 10/26/2022 Are you concerned about learning? Not on file 10/26/2022 No 10/26/2022 No 10/26/2022 Digital Access Answer Date Recorded No 11/11/2022 No 11/11/2022 Reliable internet access at home? Not on file 11/11/2022 Device with a working camera? Not on file Intimate Partner Violence Answer Date R ecorded Are you denied basic needs s uch as food, clothing, or medical care? No 06/27/2024 In the past 12 months have y ou been in a relationship with a person who hurts, threatens, or tries to control you? No 06/27/2024 Are you denied basic needs s uch as food, clothing, or medical care? No 06/27/2024 In the past 12 months have y ou been in a relationship with a person who hurts, threatens, or tries to control you? No 06/27/2024 Sex and Gender Information Value Date Recorded Sex Assigned at Male 05/08/2024 2:44 AM EST Gender Identity Male 05/29/2024 5:11 PM EST Sexual Orientation Straight 05/29/2024 5: 11 PM EST documented as of this encounter Last Filed Vital Signs Vital Sign Reading Time Taken Comments Blood Pressure 106/79 06/28/2024 5:02 AM EST Pulse 76 06/28/2024 5:02 AM EST Temperature 36.6 ??C (97.8 ??F) 06/28/2024 5:02 AM ES T Respiratory Rate 18 06/28/2024 5:02 AM EST Oxygen Saturation 98% 06/28/2024 5:02 AM EST Inhaled Oxygen Concentration - - Weight - - Height - - Body Mass Index - - documented in this encounter Discharge Instructions * Discharge Instructions* Isaiah Cortes MD - 06/28/2024 3:03 AM EST We performed a thorough examination including labs, CAT scan, physical exam and history, and the CAT scan shows that you have enteritis which is an inflammation of the bowel, often accompanied by diarrhea, and can also present with gastritis which involves vomiting. Your urinalysis is normal, andit does not appear that you have any other type of infection or pathology however if you experiencenew or worsening symptoms you should discuss with your doctors or return to the emergency room immediately. Please use Tylenol as well as Zofran for your symptoms. It is very important that you stay hydrated You were seen and evaluated in the emergency department for abdominal pain. Although the workup performed does not indicate that you require immediate hospitalization, you should be aware that symptoms may change or evolve, or you may develop new symptoms. If you have new or worsening symptoms you should discuss with your healthcare provider or return to the emergency department. In particular, be alert for worsening pain, multiple episodes of vomiting, fevers, or chest pain. * Attachments The following attachments cannot be sent through Care Everywhere. * Abdominal Pain (Citizen Of [place]) documented in this encounter Medications at Time of Discharge Medication Sig Dispensed Refills Start Date End Date acetaminophen (TYLENOL) 500 MG tablet Take 2 tablets (1,000 mg total) by mouth every 6 (six) hours as needed for pain (specific location in comments). 30 tablet 08/11/2023 07/14/2024 atorvastatin (LIPITOR) 20 MG tablet Take 20 mg by mouth daily. 07/18/2024 benztropine (COGENTIN) 0.5 MG tablet Take 0.5 mg by mouth 2 (two) times a day. 07/14/2024 benztropine (COGENTIN) 1 MG tablet Take 1 mg by mouth. 08/25/2020 07/14/2024 cloNIDine HCL (CATAPRES) 0.1 MG tablet Take 0.1 mg by mouth 3 (three) times a day. 07/16/2020 07/18/2024 diphenhydrAMINE (BENADRYL) 25 mg capsule Take 25 mg by mouth 3 (three) times a day. 07/18/2024 divalproex (DEPAKOTE ER) 250 MG ER 24 hr tablet Take 750 mg by mouth 2 (two) times a day. 08/25/2020 07/18/2024 divalproex (DEPAKOTE) [address] tablet Take 500 mg by mouth 2 (two) times a day (once in the morning and once in the afternoon). 07/14/2024 haloperidoL (HALDOL) 0.5 MG tablet Take 0.5 mg by mouth 2 (two) times a day as needed. 07/14/2024 hydrOXYzine (VISTARIL) 50 MG capsule Take 25 mg by mouth daily as needed for anxiety. 07/14/2024 ibuprofen (MOTRIN) 600 mg tablet (To-Go) Take 1 tablet by mouth every 6 hours as needed for pain. 12 tablet 08/11/2023 07/14/2024 loratadine (CLARITIN) 10 mg tablet Take 10 mg by mouth daily. 07/18/2024 LORazepam (ATIVAN) 1 MG tablet Take 1 mg by mouth 2 (two) times a day as needed for anxiety. 07/14/2024 ondansetron (ZOFRAN-ODT) 4 MG disintegrating tablet Take 1 tablet (4 mg total) by mouth every 8 (eight) hours as needed for nausea. 21 tablet 06/28/2024 07/14/2024 PARoxetine (PAXIL) 10 MG tablet TAKE 1 TABLET BY MOUTH EVERY DAY 08/20/2020 07/18/2024 propranoloL (INDERAL) 10 MG immediate release tablet Take 10 mg by mouth 2 (two) times a day. 07/14/2024 QUEtiapine (SEROQUEL) 50 MG tablet Take 50 mg by mouth 4 (four) times a day as needed. 01/16/2023 07/14/2024 risperiDONE (RISPERDAL) 0.25 MG tablet Take 1 mg by mouth 2 (two) times a day. 08/20/2020 07/14/2024 traZODone (DESYREL) 50 MG tablet Take 50 mg by mouth nightly at bedtime as needed for sleep. 07/18/2024 documented as of this encounter ED Notes * Delmy Brantley RN - 06/28/2024 5:04 AM EST Pt was discharged back to [facility] by EMS, he is aware of the treatment, follow up and the signs and symptoms that warrant immediate return to the emergency department. Pt ambulatory with stable vital signs at time of discharge. * Delmy Brantley RN - 06/28/2024 12:45 AM EST Pt appears to be sleeping, respirations even and unlabored. Safety and constant observation maintained. * Souleymane Gonzalez RN - 06/27/2024 11:14 PM EST Pt notes 10/25 RUQ pain. Increased pain with light palpation. * Saritha Price RN - 06/27/2024 10:17 PM EST RUQ ABD pain starting today w/ 2 episodes of emesis and diarrhea for past 2 days. Dark urine. Coming from [facility] for Bipolar. No ABD sx. * Isaiah Cortes MD - 06/27/2024 10:16 PM EST Emergency Department Provider Note Chief Complaint Patient presents with Abdominal Pain HPI: 28 y.o. male presents with abdominal pain. Patient states that he comes from [facility], where he is getting treatment for bipolar disease. He states that in the last 24 hours he has developed right-sided abdominal pain, had 3 episodes of dark vomit, without any sofía blood, and he is also noticed dark urine, triage note indicates grosshematuria . Patient endorses a constant crampy sensation point maximal pain is in the right lower quadrant. Denies any history of abdominal problems, surgeries, testicular issues apart from having a little extra skin that he says was removed from one of the testicles, states that he has not eaten anything all day but also that he last ate at 5 PM dinner . Denies fevers endorses chills PMH: Nurse note reviewed and confirmed. Summarized old record/history review: Patient Active Problem List Diagnosis Depression Homicidal ideation Suicidal ideation Jalyn Paranoia Past Medical History: Diagnosis Date Depression 05/30/2023 Homicidal ideation 08/15/2023 Jalyn 04/29/2024 Paranoia 05/29/2024 Suicidal ideation 01/13/2024 No past surgical history on file. Allergies Allergen Reactions [place] Oil Unknown Cashew Nut Unknown Cat Dander Cogentin [Benztropine] House Dust Methylphenidate Unknown Social History: Social History Tobacco Use Smoking status: Every Day Types: Cigarettes Smokeless tobacco: Never Vaping Use Vaping status: never used Substance Use Topics Alcohol use: Yes Drug use: Yes Types: Marijuana Family History: No family history on file. Physical Exam: Gen: BP 106/79 Pulse 76 Temp 36.6 ??C (97.8 ??F) (Oral) Resp 18 SpO2 98% . General: No acute distress, nontoxic appearing. Eyes: Anicteric. ENT: Atraumatic nose. Resp: Normal work of breathing CV: Palpable peripheral pulses, normal cap refill. GI: Point maximal tenderness right lower quadrant, moderate, also moderate tenderness right upper quadrant, also has CVA tenderness right side. Well- appearing overall with normal cap refill. MSK: No deformity. Skin: Warm, dry. No bruising Neuro: GCS 15. Normal speech, moving all extremities Psych: Normal mood. Assessment and Plan: Unclear etiology of abdominal pain however most likely at this point would be appendicitis versus nephrolithiasis versus hepatobiliary pathology. Plan for labs advanced imaging, symptomatic control and reassessment disposition pending workup Category 1: Tests, Studies or Independent Historians: Prior Data Reviewed: Prior notes reviewed. Category 2 and 3: Independent Interpretation of Tests, Consideration of Tests, or External Discussion of Results: Labs: Laboratory studies were interpreted. Radiology: Radiology studies were independently interpreted. Risks of Complications, Morbidity, or Mortality: Risks: Risks and benefits of admission to the hospital discussed with patient. Patient has recognized social determinants of health that may affect care. Medications ondansetron (PF) (ZOFRAN) injection 4 mg (4 mg Intravenous Given 06/27/24 2303) HYDROmorphone (PF) (DILAUDID) injection syringe 0.5 mg (0.5 mg Intravenous Given 06/27/24 2307) iohexoL (OMNIPAQUE-350) 350 mg iodine/mL solution 25-125 mL (75 mL Intravenous Given 06/27/24 2353) sodium chloride 0.9% bolus 1,000 mL (0 mL Intravenous Stopped 06/28/24 0237) Clinical Impressions as of 06/28/24 0558 Abdominal pain, unspecified abdominal location Discharge Medication List as of 06/28/2024 4:48 AM START taking these medications Details ondansetron (ZOFRAN-ODT) 4 MG disintegrating tablet Take 1 tablet (4 mg total) by mouth every 8 (eight) hours as needed for nausea., Starting 06/28/2024, Until 07/05/2024 at 2359, Normal MD Sophia Lizarraga Barret, MD 06/28/24 0554 documented in this encounter Plan of Treatment Not on file documented as of this encounter Procedures Procedure Name Priority Date/Time Associated Diagnosis Comments URINALYSIS W/REFLEX URINE CULTURE STAT 06/28/2024 2:[address] ABDOMEN/PELVIS WITH CONTRAST STAT 06/27/2024 11:59 PM EST LFTS (HEPATIC PANEL) STAT 06/27/2024 10:46 PM EST HC BLOOD COUNT COMPLETE AUTO&AUTO DIFRNTL WBC STAT 06/27/2024 10:46 PM EST TYPE AND SCREEN (ABO,RH,ANTIBODY SCREEN) STAT 06/27/2024 10:46 PM EST LIPASE STAT 06/27/2024 10:46 PM EST BASIC METABOLIC PANEL STAT 06/27/2024 10:46 PM EST documented in this encounter Results * (ABNORMAL) Urinalysis w/reflex Urine Culture (06/28/2024 2:37 AM EST) COLOR YELLOW [facility] CLARITY Clear [facility] GLUCOSE Negative Negative [facility] BILI Negative Negative [facility] KETONES Negative Negative [facility] SPECIFIC GRAVITY 1.049(H) 1.001 - 1.030 [facility] BLOOD Negative Negative [facility] PH 7.0 5.0 - 8.0 [facility] Protein-UA Negative Negative [facility] UROBILINOGEN Negative Negative [facility] NITRITE Negative Negative [facility] Leukocyte esterase, ur Negative Negative [facility] Urine (Urine) 06/28/2024 2:3 7 AM EST 06/28/2024 2:44 AM EST Isaiah Cortes MD URINE ORDERABLES [facility] [address] [place] [address] * CT ABDOMEN/PELVIS WITH CONTRAST (06/27/2024 11:59 PM EST) Anatomical Region Laterality Modality Abdomen, Pelvis Computed Tomogra phy 06/28/2024 12:2 4 AM EST Impressions 06/28/2024 12:32 AM EST 1. Fluid-filled small bowel loops with mild small bowel dilation and bowel wall thickening in the distal ileum. This may reflect an infectious or inflammatory enteritis. No bowel obstruction. Normal appendix. Narrative 06/28/2024 12:[address] ABDOMEN/PELVIS WITH CONTRAST Referring clinician's provided indication for this examination in Epic: * RLQ abdominal pain, appendicitis suspected (Age >= 14y); vs stone or GB pathology, slightly unreliable hx and exam: Right-sided abdominal pain with vomiting and dark urine TECHNIQUE: Multidetector-row CT of the abdomen and pelvis was performed after administration of intravenous contrast using tailored dose modulation techniques. Images were reconstructed in the axial, coronal, and sagittal planes. COMPARISON: None FINDINGS: Lower Chest: No consolidation or pleural effusions. Liver: No focal lesions. Biliary: Normal gallbladder. No biliary ductal dilatation. Spleen: No splenomegaly or focal lesions. Pancreas: Normal. No masses or ductal dilatation. Adrenal Glands: Normal. No nodules. Kidneys/Ureters: Normal. ??No solid masses, stones, or hydronephrosis. Bowel: Fluid-filled small bowel including some loops of borderline dilated distal ileum in the right lower quadrant, with possible areas of bowel wall thickening, versus underdistention. No transition point and no convincing obstruction. Normal appendix. Peritoneum/Retroperitoneum: No masses, pneumoperitoneum, or fluid. Lymph Nodes: No lymphadenopathy. Pelvic Organs/Bladder: Normal. No mass. Vessels: Normal. No abdominal aortic aneurysm. Bones/Soft Tissues: No significant abnormality. Procedure Note Jhonatan Jernigan MD - 06/28/2024 CT ABDOMEN/PELVIS WITH CONTRAST Referring clinician's provided indication for this examination in Epic: *RLQ abdominal pain, appendicitis suspected (Age >= 14y); vs stone or GBpathology, slightly unreliable hx and exam: Right-sided abdominal painwith vomiting and dark urine TECHNIQUE: Multidetector-row CT of the abdomen and pelvis was performedafter administration of intravenous contrast using tailored dosemodulation techniques. Images were reconstructed in the axial, coronal,and sagittal planes. COMPARISON: None FINDINGS: Lower Chest: No consolidation or pleural effusions. Liver: No focal lesions. Biliary: Normal gallbladder. No biliary ductal dilatation. Spleen: No splenomegaly or focal lesions. Pancreas: Normal. No masses or ductal dilatation. Adrenal Glands: Normal. No nodules. Kidneys/Ureters: Normal. No solid masses, stones, or hydronephrosis. Bowel: Fluid-filled small bowel including some loops of borderline dilateddistal ileum in the right lower quadrant, with possible areas of bowelwall thickening, versus underdistention. No transition point and noconvincing obstruction. Normal appendix. Peritoneum/Retroperitoneum: No masses, pneumoperitoneum, or fluid. Lymph Nodes: No lymphadenopathy. Pelvic Organs/Bladder: Normal. No mass. Vessels: Normal. No abdominal aortic aneurysm. Bones/Soft Tissues: No significant abnormality. IMPRESSION: 1. Fluid-filled small bowel loops with mild small bowel dilation and bowelwall thickening in the distal ileum. This may reflect an infectious orinflammatory enteritis. No bowel obstruction. Normal appendix. Isaiah Cortes MD [facility] CT ABD/PELVIS * Type and Screen (ABO,Rh,Antibody Screen) (06/27/2024 10:46 PM EST) Expiration Date of Sample 06/30/2024,2 359 [facility] ABO/Rh AB Negative [facility] Antibody Screen Negative [facility] Resulting Agency [facility] Blood 06/27/2024 10:4 6 PM EST 06/27/2024 11:15 PM EST Isaiah Cortes MD BLOOD BANK TEST ORDE MARISELA Performing Organization Address [facility]/ZIP Co de Phone Number [address] [address] * (ABNORMAL) Lipase (06/27/2024 10:46 PM EST) LIPASE 69(H) 13 - 60 U/L [facility] Blood 06/27/2024 10:4 6 PM EST 06/27/2024 11:00 PM EST Isaiah Cortes MD LAB BLOOD ORDERABLES Performing Organization Address [facility] Co de Phone Number [address] [address] * LFTs (hepatic panel) (06/27/2024 10:46 PM EST) ALBUMIN 4.2 3.5 - 5.2 g/dL [facility] TOTAL BILIRUBIN 0.2 0.0 - 1.0 mg/dL [facility] DIRECT BILIRUBIN <0.2 0.0 - 0.3 mg/dL [facility] ALKALINE PHOSPHATASE 63 40 - 130 U/L [facility] AST 27 10 - 50 U/L [facility] ALT 42 10 - 50 U/L [facility] TOTAL PROTEIN 6.9 6.0 - 8.0 g/dL [facility] GLOBULIN 2.7 2.2 - 4.2 g/dL [facility] Blood 06/27/2024 10:4 6 PM EST 06/27/2024 11:00 PM EST Isaiah Cortes MD LAB BLOOD ORDERABLES Performing Organization Address City/[facility] Co de Phone Number [address] [address] * Basic metabolic panel (06/27/2024 10:46 PM EST) SODIUM 140 136 - 145 mmol/L [facility] CHLORIDE 101 98 - 107 mmol/L [facility] POTASSIUM 4.2 3.4 - 5.0 mmol/L [facility] CO2 26 22 - 31 mmol/L [facility] BUN 12 6 - 23 mg/dL [facility] CREATININE 1.04 0.50 - 1.20 mg/dL [facility] GLUCOSE 102 70 - 115 mg/dL [facility] Comment:Note: ADA guidelines consider any fasting glucose above 100 mg/dL as pre-diabetic. CALCIUM 9.5 8.6 - 10.7 mg/dL [facility] EGFR 100 >60 mL/min/1.7 3m2 [facility] Comment:Estimated glomerular filtration rate calculated using the CKD-EPI refit equation. ANION GAP 12 3 - 15 mmol/L [facility] Blood 06/27/2024 10:4 6 PM EST 06/27/2024 11:00 PM EST Isaiah Cortes MD LAB BLOOD ORDERABLES [facility] [address] [place] [address] * (ABNORMAL) CBC and differential (06/27/2024 10:46 PM EST) WBC 12.33(H) 4.00 - 11.00 K/uL [facility] RBC 4.74 4.50 - 5.90 M/uL [facility] HGB 15.4 13.5 - 17.5 g/dL [facility] HCT 42.9 41.0 - 53.0 % [facility] PLT 178 150 - 450 K/uL [facility] MCV 90.5 80.0 - 100.0 fL [facility] MCH 32.5(H) 27.0 - 31.0 pg [facility] MCHC 35.9 32.0 - 36.0 g/dL [facility] RDW 13.5 11.5 - 14.5 % [facility] MPV 10.8 8.4 - 12.0 fL [facility] NRBC 0.00 0.00 /100 WBCs [facility] ABSOLUTE NRBC 0.00 0.00 K/uL [facility] DIFF METHOD Auto [facility] NEUTS 58.5 48.0 - 76.0 % [facility] LYMPHS 27.7 18.0 - 41.0 % [facility] MONOS 12.0(H) 4.0 - 11.0 % [facility] EOS 1.1 0.0 - 5.0 % [facility] BASOS 0.2 0.0 - 1.5 % [facility] Granulocytes, immature (%) 0.5 0.0 - 0.9 % [facility] ABSOLUTE NEUTS 7.21 1.92 - 7.60 K/uL [facility] ABSOLUTE LYMPHS 3.42 0.72 - 4.10 K/uL [facility] ABSOLUTE MONOS 1.48(H) 0.16 - 1.10 K/uL [facility] ABSOLUTE EOS 0.13 0.00 - 0.50 K/uL [facility] ABSOLUTE BASOS 0.03 0.00 - 0.15 K/uL [facility] Granulocytes, immature 0.06 0.00 - 0.09 K/uL [facility] Blood 06/27/2024 10:4 6 PM EST 06/27/2024 11:00 PM EST Isaiah Cortes MD LAB BLOOD ORDERABLES [facility] [address] [place] [address] documented in this encounter Visit Diagnoses Diagnosis Abdominal pain, unspecified abdominal location- Primary documented in this encounter Administered Medications Inactive Administered Medications - up to 3 most recent administrations Medication Order MAR Action Action Date Dose Rate Site HYDROmorphone (PF) (DILAUDID) injection syringe 0.5 mg 0.5 mg, Intravenous, Once, On Sun06/27/24 at 2300, For 1 dose Given 06/27/2024 11:07 PM EST 0.5 mg iohexoL (OMNIPAQUE-350) 350 mg iodine/mL solution 25-125 mL 25-125 mL, Intravenous, Once as needed, pre procedure/treatment, Starting on Sun06/27/24 at 2353, For 1 dose, Procedural Contrast/Med Active Now, Each mL contains 755 mg of iohexol equivalent to 350 mg of organic iodine. Given 06/27/2024 11:53 PM EST 75 mL ondansetron (PF) (ZOFRAN) injection 4 mg 4 mg, Intravenous, Once, On Sun06/27/24 at 2300, For 1 dose Given 06/27/2024 11:03 PM EST 4 mg sodium chloride 0.9% bolus 1,000 mL 1,000 mL, Intravenous, Administer over 1 Hours, at 1,000 mL/hr, Once, On 06/28/24 at 0100, For 1 dose New Bag 06/28/2024 1:11 AM EST 1,000 mL 100 0 mL/hr documented in this encounter Active and Recently Administered Medications Times are shown in EST. Scheduled Medication Order 06/26/2024 06/27/2024 06/28/2024 HYDROmorphone (PF) (DILAUDID) injection syringe 0.5 mg (COMPLETED) 0.5 mg, Intravenous, Once, On Sun06/27/24 at 2300, For 1 dose 2307 (Given - Provider: Souleymane Gonzalez, YULIANA) ondansetron (PF) (ZOFRAN) injection 4 mg (COMPLETED) 4 mg, Intravenous, Once, On Sun06/27/24 at 2300, For 1 dose 2303 (Given - Provider: Souleymane Gonzalez RN) sodium chloride 0.9% bolus 1,000 mL (COMPLETED) 1,000 mL, Intravenous, Administer over 1 Hours, at 1,000 mL/hr, Once, On 06/28/24 at 0100, For 1 dose 0111 (New Bag - Provider: Delmy Brantley, YULIANA)0237 (Stopped - Provider: Delmy Brantley RN) PRN Medication Order 06/26/2024 06/27/2024 06/28/2024 iohexoL (OMNIPAQUE-350) 350 mg iodine/mL solution 25-125 mL (COMPLETED) 25-125 mL, Intravenous, Once as needed, pre procedure/treatment, Starting on Sun06/27/24 at 2353, For 1 dose, Procedural Contrast/Med Active Now, Each mL contains 755 mg of iohexol equivalent to 350 mg of organic iodine. 2353 (Given - Provider: Carlos Manuel Gilbert) documented in this encounter Care Teams Telephone Repairer Relationship Specialty Start Date End Date Pcp, Unknown PCP - General 08/15/23 Dar Jordan MD [address] [place] [id number] Referring Physician Internal Medicine 09/23/20 documented as of this encounter Additional Source Comments The information contained in this document represents components of the legal health record. It is not the complete legal health record.[facility]
--- OUTSIDE RECORDS SUMMARY | 2024-07-19 19:36 | XMS_ITS | Clinical Summary ---
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 Relationship Specialty Start Date End Date Pcp, Unknown PCP - General 08/15/23 Dar Jordan MD [address] [place] [id number] Referring Physician Internal Medicine 09/23/20 Additional Source Comments The information contained in this document represents components of the legal health record. It is not the complete legal health record.[facility]
--- OUTSIDE RECORDS SUMMARY | 2024-07-19 19:36 | XMS_ITS | Continuity of Care Document ---
Author Organization [employer] [facility] Address [address] [address] Insurance Providers Payer Plan Claims Address Claims Phone Policy Number Group Number Relation Employer Guarantor Name Guarantor Guarantor Address Guarantor Phone [facility] [id number] Self Devyn Chirinos 1995 [address] [place], [place] [id number] [facility] Requi red [id number] Other Unknown Unknown 1995 [address] [place] [address] Medica re A&B Medic are A&B [id number] Self Devyn Chirinos 1995 [address] [place], [place] [id number] Problems Unknown Problems Results Test Value / Unit Interpretation Reference Ran ge VALPROIC ACID, FREE[GINGER]?Collected: 06/28/2023 08:00 AM?Source: [facility] VALPROIC ACID, FREE [[id number]] 7.6 mg/L 4.8-17.3 mg/L Nonlinear drug binding prope rties result in thefraction of free valproic acid increasing as totaldrug increases. The free valproic acid fractionmay range from 5% to 25% for the total drug rangeof 30-160 mg/L. VALPROIC ACID[GINGER]? Collected: 06/28/2023 08:00 AM?Source: [facility] VALPROIC ACID [[id number]] 68.7 mg/L 50. 0-100.0 mg/L COMPREHENSIVE METABOLIC PANE L[GINGER]?Collected: 06/28/2023 08:00 AM?Source: [facility] GLUCOSE [[id number]] 80 mg/dL 65-99 mg/ dL Fasting reference interval UREA NITROGEN (BUN) [[id number]] 10 mg/dL 7-25 mg/dL CREATININE [[id number]] 1.12 mg/dL 0.60-1 .24 mg/dL EGFR [[id number]] 92 mL/min/1.73m2 > OR = 6 0 mL/min/1.73m2 BUN/CREATININE RATIO [79373424] SEE NOTE: (calc) 6-22 (calc) Not Reported: BUN and Creati nine are withinreference range. SODIUM [64835535] 138 mmol/L 135-146 mm ol/L POTASSIUM [93071399] 4.5 mmol/L 3.5-5.3 mmol/L CHLORIDE [43287165] 101 mmol/L 98-110 m mol/L CARBON DIOXIDE [[id number]] 28 mmol/L 20 -32 mmol/L CALCIUM [90047658] 9.6 mg/dL 8.6-10.3 mg/dL PROTEIN, TOTAL [85308516] 6.7 g/dL 6. 1-8.1 g/dL ALBUMIN [79850454] 4.2 g/dL 3.6-5.1 g /dL GLOBULIN [91250012] 2.5 g/dL (calc) 1.9-3 .7 g/dL (calc) ALBUMIN/GLOBULIN RATIO [51711029] 1.7 (calc) 1.0-2.5 (calc) BILIRUBIN, TOTAL [31509726] 0.3 mg/dL 0.2-1.2 mg/dL ALKALINE PHOSPHATASE [55538501] 49 U/L 36-130 U/L AST [[id number]] 17 U/L 10-40 U/L ALT [[id number]] 24 U/L 9-46 U/L CBC (INCLUDES DIFF/PLT)[GINGER] ?Collected: 06/28/2023 08:00 AM?Source: [facility] WHITE BLOOD CELL COUNT [[id number]] 8.3 Thousand/uL 3.8-10.8 Thousand/uL RED BLOOD CELL COUNT [[id number]] 4.90 Million/uL 4.20-5.80 Million/uL HEMOGLOBIN [72433403] 15.4 g/dL 13.2-1 7.1 g/dL HEMATOCRIT [57365469] 45.0 % 38.5-5 0.0 % MCV [86924090] 91.8 fL 80.0-100.0 fL MCH [99562178] 31.4 pg 27.0-33.0 pg MCHC [14311224] 34.2 g/dL 32.0-36.0 g/ dL RDW [45068087] 14.5 % 11.0-15.0 % PLATELET COUNT [56167704] 171 Thousand/uL 140-400 Thousand/uL MPV [47913494] 11.3 fL 7.5-12.5 fL ABSOLUTE NEUTROPHILS [26716011] 3494 cells/uL 6396-4421 cells/uL ABSOLUTE LYMPHOCYTES [63224628] 3694 cells/uL 850-3900 cells/uL ABSOLUTE MONOCYTES [57693011] 888 cells/uL 200-950 cells/uL ABSOLUTE EOSINOPHILS [97101908] 183 cells/uL 15-500 cells/uL ABSOLUTE BASOPHILS [22480578] 42 cells/uL 0-200 cells/uL NEUTROPHILS [31124956] 42.1 % LYMPHOCYTES [93892702] 44.5 % MONOCYTES [46642375] 10.7 % EOSINOPHILS [48705017] 2.2 % BASOPHILS [29406704] 0.5 % TSH[GINGER]?Collected: 06/28/2023 08:00 AM?Source: [facility] TSH [[id number]] 5.11 mIU/L H 0.40-4.50 mIU /L VALPROIC ACID, FREE[GINGER]?Collected: 06/13/2023 08:00 AM?Source: [facility] VALPROIC ACID, FREE [[id number]] 11.9 mg/L 4.8-17.3 mg/L Nonlinear drug binding prope rties result in thefraction of free valproic acid increasing as totaldrug increases. The free valproic acid fractionmay range from 5% to 25% for the total drug rangeof 30-160 mg/L. VALPROIC ACID[GINGER]? Collected: 06/13/2023 08:00 AM?Source: [facility] VALPROIC ACID [[id number]] 92.6 mg/L 50. 0-100.0 mg/L COMPREHENSIVE METABOLIC PANE L[GINGER]?Collected: 06/13/2023 08:00 AM?Source: [facility] GLUCOSE [[id number]] 85 mg/dL 65-99 mg/ dL Fasting reference interval UREA NITROGEN (BUN) [[id number]] 13 mg/dL 7-25 mg/dL CREATININE [10232142] 1.08 mg/dL 0.60-1 .24 mg/dL EGFR [53178264] 96 mL/min/1.73m2 > OR = 6 0 mL/min/1.73m2 BUN/CREATININE RATIO [31112887] SEE NOTE: (calc) 6-22 (calc) Not Reported: BUN and Creati nine are withinreference range. SODIUM [78537023] 138 mmol/L 135-146 mm ol/L POTASSIUM [14741771] 4.8 mmol/L 3.5-5.3 mmol/L CHLORIDE [88476181] 101 mmol/L 98-110 m mol/L CARBON DIOXIDE [63601193] 30 mmol/L 20 -32 mmol/L CALCIUM [77595206] 9.7 mg/dL 8.6-10.3 mg/dL PROTEIN, TOTAL [06365162] 6.9 g/dL 6. 1-8.1 g/dL ALBUMIN [36476697] 4.3 g/dL 3.6-5.1 g /dL GLOBULIN [61432170] 2.6 g/dL (calc) 1.9-3 .7 g/dL (calc) ALBUMIN/GLOBULIN RATIO [84401621] 1.7 (calc) 1.0-2.5 (calc) BILIRUBIN, TOTAL [15735620] 0.3 mg/dL 0.2-1.2 mg/dL ALKALINE PHOSPHATASE [23237145] 51 U/L 36-130 U/L AST [39064913] 15 U/L 10-40 U/L ALT [45601169] 18 U/L 9-46 U/L CBC (INCLUDES DIFF/PLT)[GINGER] ?Collected: 06/13/2023 08:00 AM?Source: [facility] WHITE BLOOD CELL COUNT [[id number]] 9.4 Thousand/uL 3.8-10.8 Thousand/uL RED BLOOD CELL COUNT [96944521] 4.87 Million/uL 4.20-5.80 Million/uL HEMOGLOBIN [68934117] 15.3 g/dL 13.2-1 7.1 g/dL HEMATOCRIT [20220495] 44.9 % 38.5-5 0.0 % MCV [98282333] 92.2 fL 80.0-100.0 fL MCH [16323346] 31.4 pg 27.0-33.0 pg MCHC [78511483] 34.1 g/dL 32.0-36.0 g/ dL RDW [90670013] 13.7 % 11.0-15.0 % PLATELET COUNT [32890805] 150 Thousand/uL 140-400 Thousand/uL MPV [25870059] 11.3 fL 7.5-12.5 fL ABSOLUTE NEUTROPHILS [18230844] 3779 cells/uL 2695-9476 cells/uL ABSOLUTE LYMPHOCYTES [34448342] 4597 cells/uL H 850-3900 cells/uL ABSOLUTE MONOCYTES [95448909] 799 cells/uL 200-950 cells/uL ABSOLUTE EOSINOPHILS [21440190] 169 cells/uL 15-500 cells/uL ABSOLUTE BASOPHILS [99600308] 56 cells/uL 0-200 cells/uL NEUTROPHILS [23076228] 40.2 % LYMPHOCYTES [03336512] 48.9 % MONOCYTES [93796866] 8.5 % EOSINOPHILS [90795897] 1.8 % BASOPHILS [95224154] 0.6 % TSH[GINGER]?Collected: 06/13/2023 08:00 AM?Source: [facility] TSH [[id number]] 6.87 mIU/L H 0.40-4.50 mIU /L URINALYSIS, COMPLETE W/REFLE X TO CULTURE[GINGER]?Collected: 06/05/2023 08:00 AM?Source: [facility] COLOR [[id number]] YELLOW YELLOW APPEARANCE [76616125] CLEAR CLEAR SPECIFIC GRAVITY [14756988] 1.018 1.001-1.035 PH [87564309] 7.0 5.0-8.0 GLUCOSE [32375890] NEGATIVE NEGATIVE BILIRUBIN [68742400] NEGATIVE NEGATIV E KETONES [49669690] NEGATIVE NEGATIVE OCCULT BLOOD [82494046] NEGATIVE NEGA TIVE PROTEIN [17711068] NEGATIVE NEGATIVE NITRITE [56477221] NEGATIVE NEGATIVE LEUKOCYTE ESTERASE [68374162] NEGATIVE NEGATIVE WBC [66673887] NONE SEEN /HPF < OR = 5 /H PF RBC [26034010] NONE SEEN /HPF < OR = 2 /H PF SQUAMOUS EPITHELIAL CELLS [95488157] NONE SEEN /HPF < OR = 5 /HPF BACTERIA [51037407] NONE SEEN /HPF NONE S EEN /HPF HYALINE CAST [84312720] NONE SEEN /LPF NO NE SEEN /LPF NOTE [16573993] AMOL This urine was analyzed for the presence of WBC,RBC, bacteria, casts, and other formed elements.Only those elements seen were reported. REFLEXIVE URINE CULTURE[GINGER] ?Collected: 06/05/2023 08:00 AM?Source: [facility] REFLEXIVE URINE CULTURE [[id number]] AMOL NO CULTURE INDICATED VALPROIC ACID, FREE[GINGER]?Collected: 02/06/2023 07:00 AM?Source: [facility] VALPROIC ACID, FREE [[id number]] TNP/124 mg/L 4.8-17.3 mg/L TEST NOT PERFORMEDNo suitabl e specimen received.Please review the testrequirements [email or web address] VALPROIC ACID[GINGER]? Collected: 02/06/2023 07:00 AM?Source: [facility] VALPROIC ACID [[id number]] 86.0 mg/L 50. 0-100.0 mg/L COMPREHENSIVE METABOLIC PANE L[GINGER]?Collected: 02/06/2023 07:00 AM?Source: [facility] GLUCOSE [[id number]] 78 mg/dL 65-99 mg/ dL Fasting reference interval UREA NITROGEN (BUN) [63577222] 11 mg/dL 7-25 mg/dL CREATININE [92213554] 1.06 mg/dL 0.60-1 .24 mg/dL EGFR [03746219] 99 mL/min/1.73m2 > OR = 6 0 mL/min/1.73m2 BUN/CREATININE RATIO [06479197] SEE NOTE: (calc) 6-22 (calc) Not Reported: BUN and Creati nine are withinreference range. SODIUM [08986851] 142 mmol/L 135-146 mm ol/L POTASSIUM [19046048] 4.4 mmol/L 3.5-5.3 mmol/L CHLORIDE [32866110] 104 mmol/L 98-110 m mol/L CARBON DIOXIDE [05786821] 30 mmol/L 20 -32 mmol/L CALCIUM [72841910] 9.5 mg/dL 8.6-10.3 mg/dL PROTEIN, TOTAL [05460878] 6.7 g/dL 6. 1-8.1 g/dL ALBUMIN [20418500] 4.0 g/dL 3.6-5.1 g /dL GLOBULIN [10020552] 2.7 g/dL (calc) 1.9-3 .7 g/dL (calc) ALBUMIN/GLOBULIN RATIO [73104144] 1.5 (calc) 1.0-2.5 (calc) BILIRUBIN, TOTAL [38288082] 0.4 mg/dL 0.2-1.2 mg/dL ALKALINE PHOSPHATASE [21380337] 45 U/L 36-130 U/L AST [15694998] 17 U/L 10-40 U/L ALT [26508379] 20 U/L 9-46 U/L CBC (INCLUDES DIFF/PLT)[GINGER] ?Collected: 02/06/2023 07:00 AM?Source: [facility] WHITE BLOOD CELL COUNT [[id number]] 7.4 Thousand/uL 3.8-10.8 Thousand/uL RED BLOOD CELL COUNT [68151947] 4.74 Million/uL 4.20-5.80 Million/uL HEMOGLOBIN [39187971] 15.1 g/dL 13.2-1 7.1 g/dL HEMATOCRIT [00001255] 43.9 % 38.5-5 0.0 % MCV [93729670] 92.6 fL 80.0-100.0 fL MCH [46944381] 31.9 pg 27.0-33.0 pg MCHC [60855631] 34.4 g/dL 32.0-36.0 g/ dL RDW [44716773] 13.9 % 11.0-15.0 % PLATELET COUNT [45638108] 139 Thousand/uL L 140-400 Thousand/uL MPV [91205168] 11.2 fL 7.5-12.5 fL ABSOLUTE NEUTROPHILS [23950242] 2916 cells/uL 4907-4710 cells/uL ABSOLUTE LYMPHOCYTES [40851128] 3419 cells/uL 850-3900 cells/uL ABSOLUTE MONOCYTES [61044520] 866 cells/uL 200-950 cells/uL ABSOLUTE EOSINOPHILS [76221485] 148 cells/uL 15-500 cells/uL ABSOLUTE BASOPHILS [72766452] 52 cells/uL 0-200 cells/uL NEUTROPHILS [22509308] 39.4 % LYMPHOCYTES [17304663] 46.2 % MONOCYTES [26371388] 11.7 % EOSINOPHILS [71003720] 2.0 % BASOPHILS [79045744] 0.7 % TSH[GINGER]?Collected: 02/06/2023 07:00 AM?Source: [facility] TSH [[id number]] 2.66 mIU/L 0.40-4.50 mIU /L QUANTIFERON(R)-TB GOLD PLUS, 1 TUBE[GINGER]?Collected: 12/22/2022 07:00 AM?Source: [facility] QUANTIFERON(R)-TB GOLD PLUS, 1 TUBE [[id number]] NEGATIVE NEGATIVE Negative test result. M. tub erculosis complexinfection unlikely. NIL [08536627] 0.03 IU/mL MITOGEN-NIL [89319901] 7.28 IU/mL TB1-NIL [65558101] 0.00 IU/mL TB2-NIL [00527887] 0.01 IU/mL The Nil tube value reflects [...] and CD8+cytotoxic T-lymphocytes.For additional information, please refer tohttps://education.[employer]/faq/KGC833(This link is being provided for informational/educational purposes only.) CHOLESTEROL, TOTAL[GINGER]?Collected: 12/22/2022 07:00 AM?Source: [facility] CHOLESTEROL, TOTAL [[id number]] 259 mg/dL H 200 mg/dL HDL CHOLESTEROL[GINGER]?Collected: 12/22/2022 07:00 AM?Source: [facility] HDL CHOLESTEROL [[id number]] 36 mg/dL L > OR = 40 mg/dL TRIGLYCERIDES[GINGER]? Collected: 12/22/2022 07:00 AM?Source: [facility] TRIGLYCERIDES [[id number]] 314 mg/dL H 150 mg/dL If a non-fasting specimen wa s collected, considerrepeat triglyceride testing on a fasting specimenif clinically indicated.Matt et al. J. of Clin. Lipidol. 2015;9:129-169. LDL-CHOLESTEROL[GINGER]?Collected: 12/22/2022 07:00 AM?Source: [facility] LDL-CHOLESTEROL [[id number]] 170 mg/dL (calc) H Reference range: or = 2 CHD risk factors.LDL-C is now calculated using the Clyde-Randeecalculation, which is a validated novel method providingbetter accuracy than the Friedewald equation in theestimation of LDL-C.Clyde MANZANO et al. THANG. 2013;310(19): 9866-8433(http://education.[employer]/faq/YMT586) CHOL/HDLC RATIO[GINGER]?Collected: 12/22/2022 07:00 AM?Source: [facility] CHOL/HDLC RATIO [[id number]] 7.2 (calc) H 5 .0 (calc) NON HDL CHOLESTEROL[GINGER]?Collected: 12/22/2022 07:00 AM?Source: [facility] NON HDL CHOLESTEROL [[id number]] 223 mg/dL (calc) H 130 mg/dL (calc) [...] 12/22/2022 07:00 AM?Source: [facility] GLUCOSE [[id number]] 90 mg/dL 65-99 mg/ dL Fasting reference interval UREA NITROGEN (BUN) [[id number]] 9 mg/dL 7-25 mg/dL CREATININE [66038067] 1.07 mg/dL 0.60-1 .24 mg/dL EGFR [84567808] 98 mL/min/1.73m2 > OR = 6 0 mL/min/1.73m2 The eGFR is based on the CKD -EPI 2020 equation. To calculatethe new eGFR from a previous Creatinine or Cystatin Cresult, go to https://www.kidney.org/professionals/kdoqi/gfr%5Fcalculator BUN/CREATININE RATIO [79425203] NOT APPL ICABLE (calc) 6-22 (calc) SODIUM [38880498] 142 mmol/L 135-146 mm ol/L POTASSIUM [23854182] 4.6 mmol/L 3.5-5.3 mmol/L CHLORIDE [88174777] 101 mmol/L 98-110 m mol/L CARBON DIOXIDE [27797460] 29 mmol/L 20 -32 mmol/L CALCIUM [15268328] 9.8 mg/dL 8.6-10.3 mg/dL PROTEIN, TOTAL [19993276] 7.2 g/dL 6. 1-8.1 g/dL ALBUMIN [77734926] 4.2 g/dL 3.6-5.1 g /dL GLOBULIN [66119737] 3.0 g/dL (calc) 1.9-3 .7 g/dL (calc) ALBUMIN/GLOBULIN RATIO [78210724] 1.4 (calc) 1.0-2.5 (calc) BILIRUBIN, TOTAL [02543479] 0.3 mg/dL 0.2-1.2 mg/dL ALKALINE PHOSPHATASE [14829965] 59 U/L 36-130 U/L AST [96497280] 20 U/L 10-40 U/L ALT [98442494] 32 U/L 9-46 U/L CBC (INCLUDES DIFF/PLT)[GINGER] ?Collected: 12/22/2022 07:00 AM?Source: [facility] WHITE BLOOD CELL COUNT [[id number]] 7.2 Thousand/uL 3.8-10.8 Thousand/uL RED BLOOD CELL COUNT [68407436] 5.13 Million/uL 4.20-5.80 Million/uL HEMOGLOBIN [71346223] 16.1 g/dL 13.2-1 7.1 g/dL HEMATOCRIT [33801489] 48.4 % 38.5-5 0.0 % MCV [60849494] 94.3 fL 80.0-100.0 fL MCH [98916917] 31.4 pg 27.0-33.0 pg MCHC [21602229] 33.3 g/dL 32.0-36.0 g/ dL RDW [94727029] 14.4 % 11.0-15.0 % PLATELET COUNT [39535654] 166 Thousand/uL 140-400 Thousand/uL MPV [03839925] 11.8 fL 7.5-12.5 fL ABSOLUTE NEUTROPHILS [84522387] 2650 cells/uL 8381-4744 cells/uL ABSOLUTE LYMPHOCYTES [78872841] 3737 cells/uL 850-3900 cells/uL ABSOLUTE MONOCYTES [26159856] 540 cells/uL 200-950 cells/uL ABSOLUTE EOSINOPHILS [21641741] 223 cells/uL 15-500 cells/uL ABSOLUTE BASOPHILS [31126156] 50 cells/uL 0-200 cells/uL NEUTROPHILS [65856765] 36.8 % LYMPHOCYTES [73244720] 51.9 % MONOCYTES [61177529] 7.5 % EOSINOPHILS [78726251] 3.1 % BASOPHILS [06177273] 0.7 % HEMOGLOBIN A1c[GINGER]?Collected: 12/22/2022 07:00 AM?Source: [facility] HEMOGLOBIN A1c [[id number]] 5.5 % of total Hgb 5.7 % of total Hgb For the purpose of screening for the presence ofdiabetes: or =6.5% Consistent with diabetesThis assay result is consistent with a decreased riskof diabetes.Currently, no consensus exists regarding use ofhemoglobin A1c for diagnosis of diabetes in children.According to [place] Diabetes Association (ADA)guidelines, hemoglobin A1c 7.0% represents optimalcontrol in non- diabetic patients. Differentmetrics may apply to specific patient populations.Standards of Medical Care in Diabetes(ADA). T4, FREE[GINGER]?Colle cted: 12/22/2022 07:00 AM?Source: [facility] T4, FREE [[id number]] 1.3 ng/dL 0.8-1.8 ng/dL TSH[GINGER]?Collected: 12/22/2022 07:00 AM?Source: [facility] TSH [[id number]] 3.17 mIU/L 0.40-4.50 mIU /L HEPATITIS A IGM[GINGER]?Collected: 12/22/2022 07:00 AM?Source: [facility] HEPATITIS A IGM [[id number]] NON-REACTIVE N ON-REACTIVE HEPATITIS B SURFACE ANTIGEN W/REFL CONFIRM[GINGER]?Collected: 12/22/2022 07:00 AM?Source: [facility] HEPATITIS B SURFACE ANTIGEN [[id number]] NON-REACTIVE NON-REACTIVE HEPATITIS B CORE ANTIBODY (I GM)[GINGER]?Collected: 12/22/2022 07:00 AM?Source: [facility] HEPATITIS B CORE ANTIBODY (I GM) [[id number]] NON-REACTIVE NON-REACTIVE HEPATITIS C AB W/REFL TO HCV RNA, QN, PCR[GINGER]?Collected: 12/22/2022 07:00 AM?Source: [facility] HEPATITIS C ANTIBODY [[id number]] NON-REACTIVE NON-REACTIVE HCV antibody was non-reactiv e. There is no laboratoryevidence of HCV infection.In most cases, no further action is required. However,if recent HCV exposure is suspected, a test for HCV RNA(test code 70583) is suggested.For additional information please refer tohttp://education.[employer]/faq/VQX80j3(This link is being provided for informational/educational purposes only.) VALPROIC ACID[GINGER]? Collected: 12/22/2022 07:00 AM?Source: [facility] VALPROIC ACID [[id number]] 82.5 mg/L 50. 0-100.0 mg/L CHOLESTEROL, TOTAL[GINGER]?Collected: 10/30/2022 07:00 AM?Source: [facility] CHOLESTEROL, TOTAL [[id number]] 246 mg/dL H 200 mg/dL HDL CHOLESTEROL[GINGER]?Collected: 10/30/2022 07:00 AM?Source: [facility] HDL CHOLESTEROL [[id number]] 36 mg/dL L > OR = 40 mg/dL TRIGLYCERIDES[GINGER]? Collected: 10/30/2022 07:00 AM?Source: [facility] TRIGLYCERIDES [[id number]] 401 mg/dL H 150 mg/dL If a non-fasting specimen wa s collected, considerrepeat triglyceride testing on a fasting specimenif clinically indicated.Matt et al. J. of Clin. Lipidol. 2015;9:129-169. LDL-CHOLESTEROL[GINGER]?Collected: 10/30/2022 07:00 AM?Source: [facility] LDL-CHOLESTEROL [[id number]] SEE NOTE mg/d L (calc) LDL cholesterol not calculat ed. Triglyceride levelsgreater than 400 mg/dL invalidate calculated LDL results.Reference range: or = 2 CHD risk factors.LDL-C is now calculated using the Clyde-Randeecalculation, which is a validated novel method providingbetter accuracy than the Friedewald equation in theestimation of LDL-C.Clyde MANZANO et al. THANG. 2013;310(19): 5764-8069(http://Penemarie K Murphy.[employer]/faq/ZEU877) CHOL/HDLC RATIO[GINGER]?Collected: 10/30/2022 07:00 AM?Source: [facility] CHOL/HDLC RATIO [[id number]] 6.8 (calc) H 5 .0 (calc) NON HDL CHOLESTEROL[GINGER]?Collected: 10/30/2022 07:00 AM?Source: [facility] NON HDL CHOLESTEROL [[id number]] 210 mg/dL (calc) H 130 mg/dL (calc) For patients with diabetes p tammie 1 major ASCVD riskfactor, treating to a non-HDL-C goal of 100 mg/dL(LDL-C of <70 mg/dL) is considered a therapeuticoption. COMPREHENSIVE METABOLIC PANE L[GINGER]?Collected: 10/30/2022 07:00 AM?Source: [facility] GLUCOSE [[id number]] 90 mg/dL 65-99 mg/ dL Fasting reference interval UREA NITROGEN (BUN) [[id number]] 16 mg/dL 7-25 mg/dL CREATININE [[id number]] 1.10 mg/dL 0.60-1 .24 mg/dL EGFR [[id number]] 95 mL/min/1.73m2 > OR = 6 0 mL/min/1.73m2 The eGFR is based on the CKD -EPI 2020 equation. To calculatethe new eGFR from a previous Creatinine or Cystatin Cresult, go to https://www.kidney.org/professionals/kdoqi/gfr%5Fcalculator BUN/CREATININE RATIO [80696679] NOT APPL ICABLE (calc) 6-22 (calc) SODIUM [95306929] 138 mmol/L 135-146 mm ol/L POTASSIUM [90469635] 4.1 mmol/L 3.5-5.3 mmol/L CHLORIDE [96482054] 102 mmol/L 98-110 m mol/L CARBON DIOXIDE [77993718] 28 mmol/L 20 -32 mmol/L CALCIUM [90413791] 9.4 mg/dL 8.6-10.3 mg/dL PROTEIN, TOTAL [51601638] 7.1 g/dL 6. 1-8.1 g/dL ALBUMIN [78057341] 4.3 g/dL 3.6-5.1 g /dL GLOBULIN [55463116] 2.8 g/dL (calc) 1.9-3 .7 g/dL (calc) ALBUMIN/GLOBULIN RATIO [73482168] 1.5 (calc) 1.0-2.5 (calc) BILIRUBIN, TOTAL [64868655] 0.3 mg/dL 0.2-1.2 mg/dL ALKALINE PHOSPHATASE [45444679] 51 U/L 36-130 U/L AST [72655954] 46 U/L H 10-40 U/L ALT [41300289] 62 U/L H 9-46 U/L CBC (INCLUDES DIFF/PLT)[GINGER] ?Collected: 10/30/2022 07:00 AM?Source: [facility] WHITE BLOOD CELL COUNT [[id number]] 8.6 Thousand/uL 3.8-10.8 Thousand/uL RED BLOOD CELL COUNT [[id number]] 4.80 Million/uL 4.20-5.80 Million/uL HEMOGLOBIN [07047142] 14.7 g/dL 13.2-1 7.1 g/dL HEMATOCRIT [60188420] 43.7 % 38.5-5 0.0 % MCV [34826779] 91.0 fL 80.0-100.0 fL MCH [29416824] 30.6 pg 27.0-33.0 pg MCHC [12367997] 33.6 g/dL 32.0-36.0 g/ dL RDW [30635753] 14.4 % 11.0-15.0 % PLATELET COUNT [81876693] 166 Thousand/uL 140-400 Thousand/uL MPV [[id number]] 10.6 fL 7.5-12.5 fL ABSOLUTE NEUTROPHILS [[id number]] 4713 cells/uL 3486-0158 cells/uL ABSOLUTE LYMPHOCYTES [[id number]] 2116 cells/uL 850-3900 cells/uL ABSOLUTE MONOCYTES [[id number]] 1582 cells/uL H 200-950 cells/uL ABSOLUTE EOSINOPHILS [[id number]] 172 cells/uL 15-500 cells/uL ABSOLUTE BASOPHILS [[id number]] 17 cells/uL 0-200 cells/uL NEUTROPHILS [[id number]] 54.8 % LYMPHOCYTES [[id number]] 24.6 % MONOCYTES [[id number]] 18.4 % EOSINOPHILS [[id number]] 2.0 % BASOPHILS [60090638] 0.2 % CREATINE KINASE, TOTAL[GINGER]?Collected: 10/30/2022 07:00 AM?Source: [facility] CREATINE KINASE, TOTAL [[id number]] 151 U/L 44-196 U/L HEMOGLOBIN A1c[GINGER]?Collected: 10/30/2022 07:00 AM?Source: [facility] HEMOGLOBIN A1c [[id number]] 5.5 % of total Hgb 5.7 % of total Hgb For the purpose of screening for the presence ofdiabetes: or =6.5% Consistent with diabetesThis assay result is consistent with a decreased riskof diabetes.Currently, no consensus exists regarding use ofhemoglobin A1c for diagnosis of diabetes in children.According to [place] [employer] (ADA)guidelines, hemoglobin A1c 7.0% represents optimalcontrol in non- diabetic patients. Differentmetrics may apply to specific patient populations.Standards of Medical Care in Diabetes(ADA). VITAMIN B12/FOLATE, SERUM PA GINGER[GINGER]?Collected: 10/30/2022 07:00 AM?Source: [facility] VITAMIN B12 [[id number]] 460 pg/mL 200-1 100 pg/mL FOLATE, SERUM [[id number]] 8.9 ng/mL Reference RangeLow: 5.4 VITAMIN B1 (THIAMINE), SERUM /PLASMA, LC/MS/MS[GINGER]?Collected: 10/30/2022 07:00 AM?Source: [facility] VITAMIN B1 (THIAMINE), SERUM/PLASMA, LC/MS/MS [[id number]] 18 nmol/L 8-30 n mol/L Vitamin supplementation with in 24 hours prior toblood draw may affect the accuracy of the results.This test was developed and its analytical performancecharacteristics have been determined by [facility] [place], [place]. It hasnot been cleared or approved by the U.S. Food and DrugAdministration. This assay has been validated pursuantto the CLIA regulations and is used for clinicalpurposes. CBC (INCLUDES DIFF/PLT)[GINGER] ?Collected: 06/26/2022 08:00 AM?Source: [facility] WHITE BLOOD CELL COUNT [[id number]] 8.3 Thousand/uL 3.8-10.8 Thousand/uL RED BLOOD CELL COUNT [[id number]] 4.51 Million/uL 4.20-5.80 Million/uL HEMOGLOBIN [[id number]] 14.4 g/dL 13.2-1 7.1 g/dL HEMATOCRIT [[id number]] 40.6 % 38.5-5 0.0 % MCV [[id number]] 90.0 fL 80.0-100.0 fL MCH [[id number]] 31.9 pg 27.0-33.0 pg MCHC [[id number]] 35.5 g/dL 32.0-36.0 g/ dL RDW [[id number]] 13.9 % 11.0-15.0 % PLATELET COUNT [[id number]] 162 Thousand/uL 140-400 Thousand/uL MPV [[id number]] 10.9 fL 7.5-12.5 fL ABSOLUTE NEUTROPHILS [[id number]] 4150 cells/uL 8718-8459 cells/uL ABSOLUTE LYMPHOCYTES [[id number]] 3154 cells/uL 850-3900 cells/uL ABSOLUTE MONOCYTES [[id number]] 772 cells/uL 200-950 cells/uL ABSOLUTE EOSINOPHILS [37214806] 183 cells/uL 15-500 cells/uL ABSOLUTE BASOPHILS [[id number]] 42 cells/uL 0-200 cells/uL NEUTROPHILS [[id number]] 50 % LYMPHOCYTES [[id number]] 38.0 % MONOCYTES [11416776] 9.3 % EOSINOPHILS [24550793] 2.2 % BASOPHILS [[id number]] 0.5 % VALPROIC ACID[GINGER]? Collected: 06/26/2022 08:00 AM?Source: [facility] VALPROIC ACID [[id number]] 101.1 mg/L H 50. 0-100.0 mg/L CHOLESTEROL, TOTAL[GINGER]?Collected: 04/18/2022 07:00 AM?Source: [facility] CHOLESTEROL, TOTAL [[id number]] 254 mg/dL H 200 mg/dL HDL CHOLESTEROL[GINGER]?Collected: 04/18/2022 07:00 AM?Source: [facility] HDL CHOLESTEROL [[id number]] 37 mg/dL L > OR = 40 mg/dL TRIGLYCERIDES[GINGER]? Collected: 04/18/2022 07:00 AM?Source: [facility] TRIGLYCERIDES [[id number]] 266 mg/dL H 150 mg/dL If a non-fasting specimen wa s collected, considerrepeat triglyceride testing on a fasting specimenif clinically indicated.Matt et al. J. of Clin. Lipidol. 2015;9:129-169. LDL-CHOLESTEROL[GINGER]?Collected: 04/18/2022 07:00 AM?Source: [facility] LDL-CHOLESTEROL [[id number]] 173 mg/dL (calc) H Reference range: or = 2 CHD risk factors.LDL-C is now calculated using the Clyde-Randeecalculation, which is a validated novel method providingbetter accuracy than the Friedewald equation in theestimation of LDL-C.Clyde MANZANO et al. THANG. 2013;310(19): 7046-3631(http://education.[employer]/faq/CPR597) CHOL/HDLC RATIO[GINGER]?Collected: 04/18/2022 07:00 AM?Source: [facility] CHOL/HDLC RATIO [[id number]] 6.9 (calc) H 5 .0 (calc) NON HDL CHOLESTEROL[GINGER]?Collected: 04/18/2022 07:00 AM?Source: [facility] NON HDL CHOLESTEROL [[id number]] 217 mg/dL (calc) H 130 mg/dL (calc) For patients with diabetes p tammie 1 major ASCVD riskfactor, treating to a non-HDL-C goal of 100 mg/dL(LDL-C of <70 mg/dL) is considered a therapeuticoption. COMPREHENSIVE METABOLIC PANE L[GINGER]?Collected: 04/18/2022 07:00 AM?Source: [facility] GLUCOSE [[id number]] 78 mg/dL 65-99 mg/ dL Fasting reference interval UREA NITROGEN (BUN) [[id number]] 16 mg/dL 7-25 mg/dL CREATININE [[id number]] 1.11 mg/dL 0.60-1 .24 mg/dL EGFR [[id number]] 94 mL/min/1.73m2 > OR = 6 0 mL/min/1.73m2 The eGFR is based on the CKD -EPI 2020 equation. To calculatethe new eGFR from a previous Creatinine or Cystatin Cresult, go to https://www.kidney.org/professionals/kdoqi/gfr%5Fcalculator BUN/CREATININE RATIO [[id number]] NOT APPL ICABLE (calc) 6-22 (calc) SODIUM [[id number]] 138 mmol/L 135-146 mm ol/L POTASSIUM [[id number]] 4.7 mmol/L 3.5-5.3 mmol/L CHLORIDE [[id number]] 101 mmol/L 98-110 m mol/L CARBON DIOXIDE [[id number]] 29 mmol/L 20 -32 mmol/L CALCIUM [[id number]] 9.9 mg/dL 8.6-10.3 mg/dL PROTEIN, TOTAL [[id number]] 7.2 g/dL 6. 1-8.1 g/dL ALBUMIN [[id number]] 4.5 g/dL 3.6-5.1 g /dL GLOBULIN [[id number]] 2.7 g/dL (calc) 1.9-3 .7 g/dL (calc) ALBUMIN/GLOBULIN RATIO [[id number]] 1.7 (calc) 1.0-2.5 (calc) BILIRUBIN, TOTAL [[id number]] 0.4 mg/dL 0.2-1.2 mg/dL ALKALINE PHOSPHATASE [[id number]] 57 U/L 36-130 U/L AST [[id number]] 19 U/L 10-40 U/L ALT [[id number]] 25 U/L 9-46 U/L HEMOGLOBIN A1c[GINGER]?Collected: 04/18/2022 07:00 AM?Source: [facility] HEMOGLOBIN A1c [[id number]] 5.3 % of total Hgb 5.7 % of total Hgb For the purpose of screening for the presence ofdiabetes: or =6.5% Consistent with diabetesThis assay result is consistent with a decreased riskof diabetes.Currently, no consensus exists regarding use ofhemoglobin A1c for diagnosis of diabetes in children.According to [place] [employer] (ADA)guidelines, hemoglobin A1c 7.0% represents optimalcontrol in non- diabetic patients. Differentmetrics may apply to specific patient populations.Standards of Medical Care in Diabetes(ADA). Allergies, adverse reactions, alerts No known allergies and adverse reactions Medications No administered medications reported Vital Signs No vital signs reported Social History No smoking Hx information available
--- OUTSIDE RECORDS SUMMARY | 2024-07-19 19:36 | XMS_ITS | Encounter Summary ---
Author Organization [facility] Address [phone] [place] [id number] Care Team Providers Care Order Entry Specialist Name Role Phone Dar Jordan MD Unavailable [phone] Pcp, Unknown Primary Care Provider Unavailabl e Encounter Details Date Type Department Care Team (Late st Contact Info) Description 06/27/2024 Procedure Pass [facility] [address] [place] [address] Social History Tobacco Use Types Packs/Day Years [...] Infection Onset Date Last Indicated Resolved Time CoV-Risk 07/14/2024 07/14/2024 documented as of this encounter Care Teams Order Entry Specialist Relationship Specialty Start Date End Date Pcp, Unknown PCP - General 08/15/23 Dar Jordan MD [address] [place] [phone] Referring Physician Internal Medicine 09/23/20 documented as of this encounter Additional Source Comments The information contained in this document represents components of the legal health record. It is not the complete legal health record.[facility]
--- OUTSIDE RECORDS SUMMARY | 2024-07-19 19:36 | XMS_ITS | Clinical Summary ---
Author Organization [facility] Address [address] [place] [address] Care Team Providers Care Health Workers Name Role Phone Unavailable Primary Care Provider Unavailabl e Medications * This document contains information received from the source organization and may not represent a complete record from that organization. diphenhydrAMIN E (BENADryl) 25 MG capsule Take 1 capsule AT BEDTIME As Needed for Sleeplessness 30 capsule 4 Active QUEtiapine (SEROquel) 50 MG tablet Take 1 tablet AT BEDTIME for Mood stability 30 tablet 4 Active diphenhydrAMIN E (Banophen) 50 MG capsule Take 1 capsule EVERY 12 HOURS As Needed for Agitation/EPS/anx iety/insomnia 60 capsule 4 Active QUEtiapine (SEROquel) 50 MG tablet Take 1 tablet TWICE A DAY As Needed for Agitation/anxiety /insomnia 60 tablet 4 Active risperiDONE (RisperDAL) 3 MG tablet Take 1 tablet by mouth TWICE A DAY for Psychosis 60 tablet 4 Active cloNIDine (Catapres) 0.1 MG tablet Take 1 tablet TWICE A DAY for Anxiety 60 tablet 4 Active divalproex (Depakote) 500 MG EC tablet Take 1 tab TWICE A DAY for Mood stability 60 tablet 4 Active melatonin 5 MG tablet take 1 tablet by mouth at bedtime for sleeplessness 30 tablet 4 Active Social History Tobacco Use Types Packs/Day Years Used Date Smoking Tobacco: Never Assessed Sex and Gender Information Value Date Recorded Sex Assigned at Not on file Legal Sex Male 10:04 AM EDT Gender Identity Not on file Sexual Orientation Not on file Plan of Treatment Health Maintenance Due Date Last Done Comments Depression Screening 1995 SDOH Screening 1995 Alcohol/Substance Use Screening 2007 Tobacco Screening 2007 Family Planning (PISQ) 11/30/2010 Hepatitis C Screening 11/30/2013 COVID-19 Vaccine ( season) 2024 04/06/2022, 07/27/2021, 11/09/2020, Additional history exists Influenza Vaccine (#1) 2024 , 02/20/2019, 05/07/2018, Additional history exists DTaP/Tdap/Td Vaccines (8 - Td or Tdap) 10/21/2028 10/21/2018, 03/30/2009, 03/11/2001, Additional history exists Zoster Vaccines (1 of 2) 11/30/2045 RSV Patients and Patients Aged 60 years or older (1 - 1-dose 75+ series) 11/30/2070 HIB Vaccines Completed 01/10/1999, 12/1996, 09/18/1996, Additional history exists Hepatitis B Vaccines Completed 01/10/1999, 01/10/1999, 01/10/1999, Additional history exists IPV Vaccines Completed 03/11/2001, 02/1997, 10/22/1996, Additional history exists Meningococcal Vaccine Completed 03/28/2012, 009 HPV Vaccines Completed 09/27/2012, 09/16, 05/28/2012, Additional history exists Hepatitis A Vaccines Completed 09/30/2013, 09/30/2013, 03/28/2013, Additional history exists HIV Screening Completed 04/18/2022 Pneumococcal Vaccine: Pediatrics (0 to 5 Years) and At-Risk Patients (6 to 49) Years) Aged Out No longer eligible based on patient's age to complete this topic RSV under 20 months Aged Out No longe r eligible based on patient's age to complete this topic Rotavirus Vaccines Aged Out No longer eligible based on patient's age to complete this topic
--- OUTSIDE RECORDS SUMMARY | 2024-07-19 19:36 | XMS_ITS | Encounter Summary ---
Author Organization [facility] Address [phone] [place] [address] Care Team Providers Care Traffic Circuit Engineer Name Role Phone WillianerDar MD Unavailable [phone] Pcp, Unknown Primary Care Provider Unavailabl e Reason for Visit * Reason Comments Abdominal Pain Homeless Encounter Details Date Type Department Care Team ([facility] st Contact Info) Description 07/11/2024 4:32 PM EST - 07/11/2024 6:14 PM EST Emergency [facility] [address] [place] [address] Spencer Romeo MD [address] [place] [address] [email or web address] Discharge Disposition: Home or Self Care Social History Tobacco Use Types Packs/Day Years [...] uch as food, clothing, or medical care? Deferred 07/11/2024 In the past 12 months have y ou been in a relationship with a person who hurts, threatens, or tries to control you? Deferred 07/11/2024 Are you denied basic needs s uch as food, clothing, or medical care? Deferred 07/11/2024 In the past 12 months have y ou been in a relationship with a person who hurts, threatens, or tries to control you? Deferred 07/11/2024 Sex and Gender Information Value Date Recorded Sex Assigned at Male 05/08/2024 2:44 AM EST Gender Identity Male 05/29/2024 5:11 PM EST Sexual Orientation Straight 05/29/2024 5: 11 PM EST documented as of this encounter Last Filed Vital Signs Vital Sign Reading Time Taken Comments Blood Pressure 166/94 07/11/2024 6:08 PM EST Pulse 103 07/11/2024 6:08 PM EST Temperature 36.7 ??C (98 ??F) 07/11/2024 6:08 PM EST Respiratory Rate 16 07/11/2024 6:08 PM EST Oxygen Saturation 98% 07/11/2024 5:09 PM EST Inhaled Oxygen Concentration - - Weight 77.7 kg (171 lb 6.4 oz) 07/11/2024 4:02 P M EST Height 165.1 cm (5' 5 ) 07/11/2024 5:03 PM EST Body Mass Index 28.52 07/11/2024 4:02 PM EST documented in this encounter Discharge Instructions * Discharge Instructions* Spencer Romeo MD - 07/11/2024 6:08 PM EST You were seen in the emergency room due to nausea and vomiting that had resolved. You had been seeking respite, but did not want to stay to be evaluated for this. You denied any thoughts of wanting to harm yourself or others. You had no other acute complaints and requesting to go home with your girlfriend. If you develop worsening nausea vomiting, abdominal pain, thoughts wanting to harm yourselfor others or any other worsening concerning symptoms please return to emergency room. * Attachments The following attachments cannot be sent through Care Everywhere. * Nausea and Vomiting ([place]) documented in this encounter Medications at Time [...] as of this encounter ED Notes * Tatiana Villegas RN - 07/11/2024 6:12 PM EST ED Discharge Nursing Note Pt refused reviewing discharge summary with staff. All belongings returned to patient. Pt walked out of ED w/ a steady gait. * Tatiana Villegas RN - 07/11/2024 6:07 PM EST Pt requesting to leave. Pt denies any SI/HI or any other complaints. Notified MD MARYAN Noone to evaluate. Plan to discharge * Tatiana Villegas RN - 07/11/2024 4:54 PM EST ED Nursing Progress Note Pt roomed to behavioral pod after expressing SI to child care cook. When this RN inquired about initial abdominal pain complaint he responded with well ya, but I wantrespite. Pt states pain is 3/10 and vaguely pointed to abd. Denies nausea or vomitting. Pt denyingpresent S/HI. Pt continued to request ASSOC[employer] PL[employer] respite. * Yumiko Euceda RN - 07/11/2024 3:56 PM EST Pt [facility]. Per EMS Pt has been outside all day, no access to food d/t the [place] [facility] until 8 PM. Pt additionally endorsing RLQ pain reports he was recently seen at [facility]. Pt reports weeks of N/V/D. Per EMS Pt had increased sleepiness while en route to thehospital. Pt denies substance use however reports that he ingested marijuana last night that may have fentanyl. Pt speaking in clear, full sentences. Pt nauseous in Triage. Pt ambulates independently. Pt homeless and requesting respite housing. * Spencer Romeo MD - 07/11/2024 3:50 PM EST Chief Complaint Chief Complaint Patient presents with Abdominal Pain Homeless History of Present Illness The patient, Devyn Chirinos,is a 28 y.o. male who presents for evaluation of Abdominal Pain and Homeless The patient reports Weeks of nausea and vomiting as well as right lower quadrant pain. He says thisis all resolved at this time since he ate some food here and he is feeling fine. He reports wantingto come into the emergency room really to see if we had any respite beds available. He currently does not want to wait for this evaluation but that is why he came in initially. He says he just wants to go home to his girlfriend's house at this time. He said he wants respite just at rest every once in a while. He denies any other acute complaints. Denies SI, HI, AVH or intoxication. Unless otherwise specified, I have reviewed and agree with the triage and nursing notes. ROS A ten point review of systems was negative except what was noted in the HPI. Review of Systems Past Medical History Past Medical History: Diagnosis Date Depression 05/30/2023 Homicidal ideation 08/15/2023 Jalyn 04/29/2024 Paranoia 05/29/2024 Suicidal ideation 01/13/2024 Past Surgical History No past surgical history on file. Home Medications Prior to Admission medications Medication Sig acetaminophen (TYLENOL) 500 MG tablet 1,000 mg, Oral, Every 6 hours PRN Patient not taking: Reported on 07/11/2024 atorvastatin (LIPITOR) 20 MG tablet 20 mg, Daily Patient not taking: Reported on 04/29/2024 benztropine (COGENTIN) 0.5 MG tablet 0.5 mg, 2 times daily Patient not taking: Reported on 08/12/2023 benztropine (COGENTIN) 1 MG tablet 1 mg Patient not taking: Reported on 08/12/2023 cloNIDine HCL (CATAPRES) 0.1 MG tablet 0.1 mg, 3 times daily Patient not taking: Reported on 07/11/2024 diphenhydrAMINE (BENADRYL) 25 mg capsule 25 mg, 3 times daily Patient not taking: Reported on 07/11/2024 divalproex (DEPAKOTE ER) 250 MG ER 24 hr tablet 750 mg, 2 times daily Patient not taking: Reported on 07/11/2024 divalproex (DEPAKOTE) [address] tablet 500 mg, 2 times daily Patient not taking: Reported on 04/29/2024 haloperidoL (HALDOL) 0.5 MG tablet 0.5 mg, 2 times daily PRN Patient not taking: Reported on 01/01/2024 hydrOXYzine (VISTARIL) 50 MG capsule 25 mg, Daily as needed Patient not taking: Reported on 04/29/2024 ibuprofen (MOTRIN) 600 mg tablet (To-Go) Take 1 tablet by mouth every 6 hours as needed for pain. Patient not taking: Reported on 05/29/2024 loratadine (CLARITIN) 10 mg tablet 10 mg, Daily Patient not taking: Reported on 07/11/2024 LORazepam (ATIVAN) 1 MG tablet 1 mg, 2 times daily PRN Patient not taking: Reported on 01/12/2024 PARoxetine (PAXIL) 10 MG tablet TAKE 1 TABLET BY MOUTH EVERY DAY Patient not taking: Reported on 08/12/2023 propranoloL (INDERAL) 10 MG immediate release tablet 10 mg, 2 times daily Patient not taking: Reported on 01/01/2024 QUEtiapine (SEROQUEL) 50 MG tablet 50 mg, 4 times daily PRN Patient not taking: Reported on 07/11/2024 risperiDONE (RISPERDAL) 0.25 MG tablet 1 mg, 2 times daily Patient not taking: Reported on 07/11/2024 traZODone (DESYREL) 50 MG tablet 50 mg, Nightly PRN Patient not taking: Reported on 05/13/2024 Allergies Allergies Allergen Reactions [place] Oil Unknown Cashew Nut Unknown Cat Dander Cogentin [Benztropine] House Dust Methylphenidate Unknown Social and Family History Social History Tobacco Use Smoking status: Every Day Types: Cigarettes Smokeless tobacco: Never Substance Use Topics Alcohol use: Yes Social History Substance and Sexual Activity Drug Use Yes Types: Marijuana No family history on file. Physical Exam Vital Signs: ED Triage Vitals Encounter Vitals Group BP 07/11/24 1602 114/70 Systolic BP Percentile -- Diastolic BP Percentile -- Heart Rate 07/11/24 1602 95 Respiratory Rate 07/11/24 1602 18 Temperature 07/11/24 1602 36.5 ??C (97.7 ??F) Temp Source 07/11/24 1709 Tympanic SpO2 07/11/24 1602 98 % Weight 07/11/24 1602 171 lb 6.4 oz Height 07/11/24 1703 5' 5 Head Circumference -- Peak Flow -- Pain Score -- Pain Loc -- Pain Education -- Exclude from Growth Chart -- Physical Exam Vitals and nursing note reviewed. Constitutional: General: He is not in acute distress. Appearance: Normal appearance. HENT: Head: Normocephalic and atraumatic. Eyes: Extraocular Movements: Extraocular movements intact. Pupils: Pupils are equal, round, and reactive to light. Cardiovascular: Rate and Rhythm: Normal rate and regular rhythm. Pulmonary: Effort: Pulmonary effort is normal. Abdominal: General: Abdomen is flat. Palpations: Abdomen is soft. Tenderness: There is no abdominal tenderness. Musculoskeletal: General: No signs of injury. Cervical back: Normal range of motion. Neurological: General: No focal deficit present. Mental Status: He is alert and oriented to person, place, and time. Psychiatric: Mood and Affect: Mood normal. Laboratory Testing Results for orders placed or performed during the hospital encounter of 07/11/24 Ethanol, blood Specimen: Blood Result Value Ref Range ETHANOL <10 <10 mg/dL Lipase Specimen: Blood Result Value Ref Range LIPASE 54 16 - 63 U/L LFTs (hepatic panel) Specimen: Blood Result Value Ref Range ALKALINE PHOSPHATASE 70 39 - 117 U/L TOTAL BILIRUBIN 0.3 0.0 - 1.2 mg/dL DIRECT BILIRUBIN <0.2 0 - 0.3 mg/dL Bilirubin (Indirect) NOT CALCULATED 0 - 1.5 mg/dL AST 20 0 - 37 U/L ALT 21 0 - 40 U/L TOTAL PROTEIN 7.6 6.5 - 8.0 g/dL ALBUMIN 4.7 3.9 - 4.8 g/dL GLOBULIN 2.9 1 - 4.8 g/dL A/G Ratio 1.62 1.00 - 4.80 RATIO Basic metabolic panel Specimen: Blood Result Value Ref Range SODIUM 141 133 - 146 mmol/L CHLORIDE 104 96 - 108 mmol/L POTASSIUM 3.7 3.3 - 5.1 mmol/L CO2 27 21 - 35 mmol/L BUN 13 6 - 19 mg/dL CREATININE 1.00 0.5 - 1.5 mg/dL GLUCOSE 115 (H) 70 - 99 mg/dL CALCIUM 9.7 8.4 - 10.3 mg/dL EGFR 105 >59 mL/min/1.73m2 ANION GAP 14 10 - 20 mmol/L CBC and differential Specimen: Blood Result Value Ref Range WBC 10.17 4.00 - 11.00 K/uL RBC 4.69 4.50 - 5.90 M/uL HGB 14.8 13.5 - 17.5 g/dL HCT 41.9 41.0 - 53.0 % PLT 187 150 - 450 K/uL MCV 89.3 80.0 - 100.0 fL MCH 31.6 (H) 27.0 - 31.0 pg MCHC 35.3 32.0 - 36.0 g/dL RDW 13.4 11.5 - 14.5 % MPV 10.4 8.4 - 12.0 fL NRBC 0.00 0.00 /100 WBCs ABSOLUTE NRBC 0.00 0.00 K/uL DIFF METHOD Auto NEUTS 64.0 48.0 - 76.0 % LYMPHS 26.4 18.0 - 41.0 % MONOS 8.6 4.0 - 11.0 % EOS 0.3 0.0 - 5.0 % BASOS 0.4 0.0 - 1.5 % Granulocytes, immature (%) 0.3 0.0 - 0.9 % ABSOLUTE NEUTS 6.52 1.92 - 7.60 K/uL ABSOLUTE LYMPHS 2.68 0.72 - 4.10 K/uL ABSOLUTE MONOS 0.87 0.16 - 1.10 K/uL ABSOLUTE EOS 0.03 0.00 - 0.50 K/uL ABSOLUTE BASOS 0.04 0.00 - 0.15 K/uL Granulocytes, immature 0.03 0.00 - 0.09 K/uL Radiology Testing No orders to display MDM Assessment and Plan: Patient is a 28-year-old male presenting due to nausea, vomiting and abdominal pain. This is all resolved this time and is a benign abdominal exam. Patient really came to emergency room to see if we had a respite bed available. He is an undomiciled patient and says that he likes to go to respite every once a while to get some rest. Currently he is saying he wants to go to his girlfriend's house. He feels safe there. He is denying SI, HI or AVH. He does not appear intoxicated. Given patient is requesting go home and has a safe disposition, will discharge at this time. Category 2 and 3: Independent Interpretation of Tests, Consideration of Tests, or External Discussion of Results: Labs: Laboratory studies were interpreted. Clinical Impressions as of 07/11/241811 Homelessness Nausea Clinical Impression Diagnosis Description Comment Final diagnoses Homelessness Homelessness -- Nausea Nausea -- Disposition: Home Spencer Romeo MD 07/11/241811 documented in this encounter Plan of Treatment Not on file documented as of this encounter Procedures Procedure Name Priority Date/Time Associated Diagnosis Comments ETHANOL, BLOOD STAT 07/11/2024 4:47 PM EST LFTS (HEPATIC PANEL) STAT 07/11/2024 4:47 PM EST CBC AND DIFFERENTIAL STAT 07/11/2024 4:47 PM EST LIPASE STAT 07/11/2024 4:47 PM EST BASIC METABOLIC PANEL STAT 07/11/2024 4:47 PM EST documented in this encounter Results * Ethanol, blood (07/11/2024 4:47 PM EST) ETHANOL <10 <10 mg/dL [facility] Blood 07/11/2024 4:47 PM EST 07/11/2024 4:50 PM EST Spencer Romeo MD LAB BLOOD ORDERABLES Performing Organization Address [facility] Co de Phone Number [address] [address] * Lipase (07/11/2024 4:47 PM EST) LIPASE 54 16 - 63 U/L [facility] Blood 07/11/2024 4:47 PM EST 07/11/2024 4:50 PM EST Spencer Romeo MD LAB BLOOD ORDERABLES Performing Organization Address [facility] de Phone Number [address] [address] * LFTs (hepatic panel) (07/11/2024 4:47 PM EST) ALKALINE PHOSPHATASE 70 39 - 117 U/L [facility] TOTAL BILIRUBIN 0.3 0.0 - 1.2 mg/dL [facility] DIRECT BILIRUBIN <0.2 0 - 0.3 mg/dL [facility] Bilirubin (Indirect) NOT CALCULATED 0 - 1.5 mg/dL [facility] AST 20 0 - 37 U/L [facility] ALT 21 0 - 40 U/L [facility] TOTAL PROTEIN 7.6 6.5 - 8.0 g/dL [facility] ALBUMIN 4.7 3.9 - 4.8 g/dL [facility] GLOBULIN 2.9 1 - 4.8 g/dL [facility] A/G Ratio 1.62 1.00 - 4.80 RATIO [facility] Blood 07/11/2024 4:47 PM EST 07/11/2024 4:50 PM EST Spencer Romeo MD LAB BLOOD ORDERABLES [address] [address] * (ABNORMAL) Basic metabolic panel (07/11/2024 4:47 PM EST) SODIUM 141 133 - 146 mmol/L [facility] CHLORIDE 104 96 - 108 mmol/L [facility] POTASSIUM 3.7 3.3 - 5.1 mmol/L [facility] CO2 27 21 - 35 mmol/L [facility] BUN 13 6 - 19 mg/dL [facility] CREATININE 1.00 0.5 - 1.5 mg/dL [facility] GLUCOSE 115(H) 70 - 99 mg/dL [facility] CALCIUM 9.7 8.4 - 10.3 mg/dL [facility] EGFR 105 >59 mL/min/1.7 3m2 [facility] Comment:Estimated glomerular filtration rate calculated using the CKD-EPI refit equation. ANION GAP 14 10 - 20 mmol/L [facility] Blood 07/11/2024 4:47 PM EST 07/11/2024 4:50 PM EST Spencer Romeo MD LAB BLOOD ORDERABLES Performing Organization Address [facility] Co de Phone Number [address] [address] * (ABNORMAL) CBC and differential (07/11/2024 4:47 PM EST) WBC 10.17 4.00 - 11.00 K/uL [facility] RBC 4.69 4.50 - 5.90 M/uL [facility] HGB 14.8 13.5 - 17.5 g/dL [facility] HCT 41.9 41.0 - 53.0 % [facility] PLT 187 150 - 450 K/uL [facility] MCV 89.3 80.0 - 100.0 fL [facility] MCH 31.6(H) 27.0 - 31.0 pg [facility] MCHC 35.3 32.0 - 36.0 g/dL [facility] RDW 13.4 11.5 - 14.5 % [facility] MPV 10.4 8.4 - 12.0 fL [facility] NRBC 0.00 0.00 /100 WBCs [facility] ABSOLUTE NRBC 0.00 0.00 K/uL [facility] DIFF METHOD Auto [facility] NEUTS 64.0 48.0 - 76.0 % [facility] LYMPHS 26.4 18.0 - 41.0 % [facility] MONOS 8.6 4.0 - 11.0 % [facility] EOS 0.3 0.0 - 5.0 % [facility] BASOS 0.4 0.0 - 1.5 % [facility] Granulocytes, immature (%) 0.3 0.0 - 0.9 % [facility] ABSOLUTE NEUTS 6.52 1.92 - 7.60 K/uL [facility] ABSOLUTE LYMPHS 2.68 0.72 - 4.10 K/uL [facility] ABSOLUTE MONOS 0.87 0.16 - 1.10 K/uL [facility] ABSOLUTE EOS 0.03 0.00 - 0.50 K/uL [facility] ABSOLUTE BASOS 0.04 0.00 - 0.15 K/uL [facility] Granulocytes, immature 0.03 0.00 - 0.09 K/uL [facility] Blood 07/11/2024 4:47 PM EST 07/11/2024 4:50 PM EST Spencer Romeo MD LAB BLOOD ORDERABLES Performing Organization Address City/State/[facility] Co de Phone Number [address] [address] documented in this encounter Visit Diagnoses Diagnosis Homelessness- Primary Lack of housing Nausea Nausea alone documented in this encounter Administered Medications Inactive Administered Medications - up to 3 most recent administrations Medication Order MAR Action Action Date Dose Rate Site sodium chloride (NS) 0.9 % syringe flush 3 mL 3 mL, Intravenous, As needed, line care, Starting on Sun07/11/24 at 1606, Per Institutional IV Line Care Policy. documented in this encounter Active and Recently Administered Medications Times are shown in EST. PRN Medication Order 07/09/2024 07/10/2024 07/11/2024 sodium chloride (NS) 0.9 % syringe flush 3 mL 3 mL, Intravenous, As needed, line care, Starting on Sun07/11/24 at 1606, Per Institutional IV Line Care Policy. documented in this encounter Care Teams Traffic Circuit Engineer Relationship Specialty Start Date End Date Pcp, Unknown PCP - General 08/15/23 Dar Jordan MD [address] [place] [address] Referring Physician Internal Medicine 09/23/20 documented as of this encounter Additional Source Comments The information contained in this document represents components of the legal health record. It is not the complete legal health record.[facility]
--- OUTSIDE RECORDS SUMMARY | 2024-07-19 19:36 | XMS_ITS | Encounter Summary ---
Author Organization [facility] Address [address] [place] [address] Care Team Providers Care Air Intercept Controller Supervisor Name Role Phone Reza Carrasco Unavailable Reza Carrasco Primary Care Provider [phone] Encounter Details Date Type Department Care Team (Late st Contact Info) Description 10/20/2023 Procedure [facility] - [address] [address] Social History Tobacco Use [...] on filedocumented in this encounter Care Teams Air Intercept Controller Supervisor Relationship Specialty Start Date End Date Reza Carrasco [address] [place] [address] PCP - Family Medicine 01/22/15 Reza Carrasco [address] [place] [address] PCP - General 01/22/15 documented as of this encounter
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
--- OUTSIDE RECORDS SUMMARY | 2024-07-19 19:36 | XMS_ITS | Encounter Summary ---
Author Organization [facility] Address [address] [place] [address] Care Team Providers Care Distribution Analyst Name Role Phone Reza Carrasco Unavailable Reza Carrasco Primary Care Provider [phone] Encounter Details Date Type Department Care Team (Late st Contact Info) Description 05/21/2023 Lab Requisition [address] [address] Rater, Leroy Cotton MD [address] [place] [address] Autistic disorder; Bipolar disorder, unspecified (HCC) Social History Tobacco Use Types Packs/Day Years [...] Procedure Name Priority Date/Time Associated Diagnosis Comments LIPID PROFILE, REFLEX DIRECT LDL Routine 05/16/2023 9:29 AM EST Autistic disorder Bipolar disorder, unspecified (HCC) HEMOGLOBIN A1C Routine 05/16/2023 9:29 AM EST VALPROIC ACID LEVEL Routine 05/16/2023 9 :29 AM EST documented in this encounter Results * Valproic Acid Level (05/16/2023 9:29 AM EST) Valproic Acid 85.7 50.0 - 100.0 ug/mL 05/21/2023 12:09 PM EST [facility] Blood Venipuncture / Unknown 05/16/2023 9:29 AM EST 05/21/2023 11:21 AM EST Leroy Anderson MD LAB BLOOD ORDERABLES Candice l Result Performing Organization Address [facility] Co de Phone Number [facility] [address] [place] [phone] * Hemoglobin A1c (05/16/2023 9:29 AM EST) Pathologist [facility] Hemoglobin A1C 5.3 4.0 - 6.0 % 05/21/2023 11:51 AM EST [facility] Estimated Average Glucose eAG 105.4 85.0 - 126.0 mg/dL 05/21/2023 11:51 AM EST [facility] Blood 05/16/2023 9:29 AM EST 05/21/2023 11:21 AM EST Leroy Anderson MD LAB BLOOD ORDERABLES Candice l Result Performing Organization Address [facility] Phone Number [facility] [address] [place] [address] * (ABNORMAL) Lipid profile, reflex direct LDL (05/16/2023 9:29 AM EST) Pathologist [facility] Cholesterol 244(H) <200 mg/dL 05/21/2023 12:02 PM EST [facility] Triglycerides 192(H) <150 mg/dL 05/21/2023 12:02 PM EST [facility] HDL 37.5(L) >=60.0 mg/dL 05/21/2023 12:02 PM EST [facility] LDL Calculated 168(H) 0 - 100 mg/dL 05/21/2023 12:02 PM EST [facility] Cardiac Risk Factor 6.5(H) 0.0 - 5.0 05/21/2023 12:02 PM EST [facility] Blood Venipuncture / Unknown 05/16/2023 9:29 AM EST 05/21/2023 11:21 AM EST Narrative [facility] - 05/21/2023 12:02 PM EST Cardiac Risk Factor: ?Males ? Females 2x Average Risk ?9.6 ?7.1 3x Average Risk ? 23.4 ? 11.0 us Leroy Anderson MD LAB BLOOD ORDERABLES Candice moore Result [facility] [address] [place] [address] documented in this encounter Visit Diagnoses Diagnosis Autistic disorder Autistic disorder, current or active state Bipolar disorder, unspecified (HCC) Bipolar disorder, unspecified documented in this encounter Care Teams Distribution Analyst Relationship Specialty Start Date End Date Reza Carrasco [address] [place] [phone] PCP - Family Medicine 01/22/15 Reza Carrasco [address] [place] [phone] PCP - General 01/22/15 documented as of this encounter
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
--- OUTSIDE RECORDS SUMMARY | 2024-07-19 19:36 | XMS_ITS | Encounter Summary ---
Author Organization [facility] Address [address] [place] [address] Care Team Providers Care Educational Program Assistant Name Role Phone Reza Carrasco Unavailable Reza Carrasco Primary Care Provider Encounter Details Date Type Department Care Team (Late st Contact Info) Description 10/12/2023 Lab Requisition [address] [address] Chava Mondragon, DO [address] [place] [address] Bipolar disorder, unspecified (HCC) Social History Tobacco [...] Procedure Name Priority Date/Time Associated Diagnosis Comments CBC AND AUTO DIFFERENTIAL Routine 10/12/2023 10:00 AM EDT VALPROIC ACID LEVEL Routine 10/12/2023 1 0:00 AM EDT COMPREHENSIVE METABOLIC PANEL Routine 10/12/2023 10:00 AM EDT Bipolar disorder, unspecified (HCC) documented in this encounter Results * Valproic Acid Level (10/12/2023 10:00 AM EDT) Valproic Acid 53.0 50.0 - 100.0 ug/mL 10/12/2023 11:24 AM EDT [facility] Blood Venipuncture / Unknown 10/12/2023 10:00 AM EDT 10/12/2023 10:51 AM EDT us Chava Mondragon DO LAB BLOOD ORDERABLES Final R esult [facility] [address] [place] [phone] * CBC and Auto Differential (10/12/2023 10:00 AM EDT) [facility] WBC 7.0 4.8 - 11.2 10*3/??L 10/12/2023 11:01 AM EDT [facility] RBC 4.58 4.00 - 5.90 10*6/??L 10/12/2023 11:01 AM EDT [facility] HGB 14.8 14.0 - 17.2 g/dL 10/12/2023 11:01 AM EDT [facility] HCT 42.2 40.0 - 52.0 % 10/12/2023 11:01 AM EDT [facility] MCV 92.2 82.0 - 98.0 fL 10/12/2023 11:01 AM EDT [facility] MCH 32.4 27.0 - 35.0 pg 10/12/2023 11:01 AM EDT [facility] MCHC 35.1 32.0 - 37.0 g/dL 10/12/2023 11:01 AM EDT [facility] RDW 13.8 12.0 - 15.0 % 10/12/2023 11:01 AM EDT [facility] PLT 187 150 - 400 10*3/??L 10/12/2023 11:01 AM EDT [facility] MPV 10.1 7.0 - 14.0 fL 10/12/2023 11:01 AM EDT [facility] Neut % 50.7 45.0 - 85.0 % 10/12/2023 11:01 AM EDT [facility] Lymph % 36.3 15.0 - 45.0 % 10/12/2023 11:01 AM EDT [facility] [place] % 10.2 0.0 - 12.0 % 10/12/2023 11:01 AM EDT [facility] Eos % 1.9 0.0 - 7.0 % 10/12/2023 11:01 AM EDT [facility] Baso % 0.9 0.0 - 3.0 % 10/12/2023 11:01 AM EDT [facility] NRBC% 0 0 /100 WBC /100 WBC 10/12/2023 11:01 AM EDT [facility] Neut # 3.5 2.2 - 9.5 10*3/??L 10/12/2023 11:01 AM EDT [facility] Lym # 2.5 0.7 - 5.0 10*3/??L 10/12/2023 11:01 AM EDT [facility] [place] # 0.7 0.0 - 1.3 10*3/??L 10/12/2023 11:01 AM EDT [facility] Eos # 0.1 0.0 - 0.4 10*3/??L 10/12/2023 11:01 AM EDT [facility] Baso # 0.1 0.0 - 0.3 10*3/??L 10/12/2023 11:01 AM EDT [facility] Blood Venipuncture / Unknown 10/12/2023 10:00 AM EDT 10/12/2023 10:51 AM EDT us Chava Mondragon DO LAB BLOOD ORDERABLES Final R esult [facility] [address] [place] [phone] * Comprehensive metabolic panel (10/12/2023 10:00 AM EDT) Sodium 139 136 - 145 mEq/L 10/12/2023 11:24 AM EDT [facility] Potassium 4.3 3.5 - 5.1 mEq/L 10/12/2023 11:24 AM EDT [facility] Chloride 106 98 - 107 mEq/L 10/12/2023 11:24 AM EDT [facility] CO2 29 20 - 31 mEq/L 10/12/2023 11:24 AM EDT [facility] Anion Gap 4 4 - 15 mEq/L 10/12/2023 11:24 AM EDT [facility] Glucose 78 70 - 100 mg/dL 10/12/2023 11:24 AM EDT [facility] Creatinine 1.08 0.60 - 1.10 mg/dL 10/12/2023 11:24 AM T [facility] eGFR (Male) >60 60 - 115 mL/min 10/12/2023 11:24 AM EDT [facility] BUN 9 9 - 23 mg/dL 10/12/2023 11:24 AM EDT [facility] Calcium 9.5 8.7 - 10.4 mg/dL 10/12/2023 11:24 AM T [facility] Total Protein 6.6 5.7 - 8.2 g/dL 10/12/2023 11:24 AM T [facility] Albumin 4.2 3.2 - 4.8 g/dL 10/12/2023 11:24 AM T [facility] A/G Ratio 1.8 1.0 - 2.3 10/12/2023 11:24 AM T [facility] Total Bilirubin 0.3 0.2 - 1.0 mg/dL 10/12/2023 11:24 AM T [facility] AST 22 13 - 40 U/L 10/12/2023 11:24 AM T [facility] Alkaline Phosphatase 64 46 - 116 IU/L 10/12/2023 11:24 AM T [facility] ALT 40 7 - 40 U/L 10/12/2023 11:24 AM T [facility] Blood Venipuncture / Unknown 10/12/2023 10:00 AM EDT 10/12/2023 10:51 AM EDT us Chava Mondragon DO LAB BLOOD ORDERABLES Final R esult [facility] [address] [place] [address] documented in this encounter Visit Diagnoses Diagnosis Bipolar disorder, unspecified (HCC) Bipolar disorder, unspecified documented in this encounter Care Teams Educational Program Assistant Relationship Specialty Start Date End Date Reza Carrasco [address] [place] [phone] PCP - Family Medicine 01/22/15 Reza Carrasco [address] [place] [phone] PCP - General 01/22/15 documented as of this encounter
--- OUTSIDE RECORDS SUMMARY | 2024-07-19 19:36 | XMS_ITS | Clinical Summary ---
Author Organization [facility] Address [address] [place] [address] Care Team Providers Care Screw Machine Set Up Operator Tool Name Role Phone Unavailable Primary Care Provider Unavailabl e Medications No known medications Active Problems No known active problems Social History Tobacco Use Types Packs/Day Years Used Date Smoking Tobacco: Never Assessed Sex and Gender Information Value Date Recorded Sex Assigned at Male 08/31/2023 3:47 PM EDT Gender Identity Not on file Sexual Orientation Not on file Job Start Date Occupation Industry Not on file Not on file Not on file Last Filed Vital Signs Vital Sign Reading Time Taken Comments Blood Pressure 130/81 08/31/2023 2:26 PM EDT Pulse 104 08/31/2023 2:26 PM EDT Temperature 37 ??C (98.6 ??F) 08/31/2023 2:26 PM EDT Respiratory Rate 18 08/31/2023 2:26 PM EDT Oxygen Saturation 95% 08/31/2023 2:26 PM EDT Inhaled Oxygen Concentration - - Weight - - Height - - Body Mass Index - - Plan of Treatment Health Maintenance Due Date Last Done Comments Hepatitis C Screening 1995 Depression Screening 2007 Preventative Health Evaluation 11/30/2013 COVID-19 Vaccine ( season) 2024 04/06/2022, 07/27/2021, 11/09/2020, Additional history exists Influenza Vaccine (#1) 2024 , 02/20/2019, 05/07/2018, Additional history exists DTap / Tdap / Td (8 - Td or Tdap) 10/21/2028 10/21/2018, 03/30/2009, 03/11/2001, Additional history exists Hepatitis B Vaccines Completed 01/10/1999, 01/10/1999, 01/10/1999, Additional history exists Pneumococcal Vaccine Aged Out No long er eligible based on patient's age to complete this topic RSV Ped < 20 months Aged Out No longe r eligible based on patient's age to complete this topic
--- NOTE | 2024-07-19 19:44 | MHC.EDTECH ---
pt refusing labs. rn aware.
[2024-07-19 21:28] LABS: Basophils Absolute Auto 0.1 X10*3/uL (0.0-0.2); Basophils Percent Auto 0.5 % (0-2); Eosinophils Absolute Auto 0.1 X10*3/uL (0.0-0.4); Eosinophils Percent Auto 0.8 % (0-4); Hematocrit 44.3 % (42.0-52.0); Hemoglobin 15.9 g/dl (14.0-18.0); Imm Gran Abs Auto 0.03 X10*3/uL (0.00-0.03); Imm Gran Pct Auto 0.3 % (0.0-0.4); Lymphocytes Absolute Auto 3.9 X10*3/uL (1.2-4.9); Lymphocytes Percent Auto 36.1 % (20-40); MANUAL DIFF FLAG NO; Mean Corpuscular HGB Conc 35.9 g/dl (31.0-36.0); Mean Corpuscular Hemoglobin 31.7 pg (27.0-33.0); Mean Corpuscular Volume 88.2 fL (80.0-98.0); Mean Platelet Volume 10.3 fL (9.4-12.4); Monocytes Absolute Auto 1.1 X10*3/uL (0.1-1.2); Monocytes Percent Auto 10.1 % (2-11); Neutrophils Absolute Auto 5.7 x10*3/uL (2.0-8.3); Neutrophils Percent Auto 52.2 % (45-73); Platelet Count 250 X10*3/uL (160-400); Red Blood Count 5.02 X10*6/uL (4.60-5.80); Red Cell Distribution Width 13.5 % (11.0-16.0); White Blood Count 10.9 X10*3/uL (4.8-10.8)
[2024-07-19 21:40] LABS: Amphetamine Screen Urine Not Detected (Not Detect); Barbiturates, Urine Not Detected (Not Detect); Benzodiazepines Screen Urine Not Detected (Not Detect); Buprenorphine Scr Not Detected (Not Detect); Cannabinoid Screen Urine Not Detected (Not Detect); Cocaine Screen Urine Not Detected (Not Detect); Fentanyl, urine Not Detected (Not Detect); Methadone Screen, Urine Not Detected (Not Detect); Opiate Screen Urine Not Detected (Not Detect); Oxycodone Screen Urine Not Detected (Not Detect); Phencyclidine Screen Urine Not Detected (Not Detect)
--- NOTE | 2024-07-19 21:53 | ED_ITS ---
HPI - General Adult General Chief complaint: Psychiatric Symptoms Stated complaint: section 12, suicidal thoughts Time Seen by Provider: 07/19/24 19:45 History of Present Illness ED Provider: Jaya Simpson MD HPI narrative: Transient suicidal statements to police after the picked him up on a warrant after an inpatient stay at [facility] where he was subsequently discharged. Related Data Home Medications ?Medication ?Instructions ?Recorded ?Confirmed divalproex 500 mg tablet,delayed 500 mg PO TID 05/28/24 07/09/24 release buspirone 15 mg tablet 15 mg PO 3XD 07/09/24 07/09/24 melatonin 3 mg tablet 6 mg PO BEDTIME 07/09/24 07/09/24 paroxetine HCl 10 mg tablet 10 mg PO DAILY 07/09/24 07/09/24 risperidone 3 mg tablet 3 mg PO BEDTIME 07/09/24 07/09/24 diphenhydramine HCl 25 mg tablet 25 mg PO TID PRN Anxiety 07/10/24 07/10/24 loratadine 10 mg tablet (Allergy 10 mg PO DAILY 07/10/24 07/10/24 Relief (loratadine)) trazodone 50 mg tablet 50 mg PO BEDTIME 07/10/24 07/10/24 Allergies Allergy/AdvReac Type Severity Reaction Status Date / Time No Known Allergies Allergy Verified 07/19/24 19:39 REPLACED BY [facility] Social History Social History Alcohol intake: never Advance Directives: No Advance Directives Information Provided: No Do you have a plan to hurt others: No Plan Physical Exam ED Vital Signs: Vital Signs - 24 hr 07/19/24 22:22 Temperature 98.6 F Pulse Rate 82 Respiratory Rate 17 Blood Pressure 128/80 Pulse Oximetry 99 Oxygen Delivery Method Room Air BMI result Body Mass Index 32.3 Const Other: EXAM: Gen: Alert, awake, well appearing, well hydrated. Head: Atraumatic Eyes: Anicteric, Normal conjunctiva. ENT: Moist mucosa, no pallor. Neck: Supple. : No flank tenderness. Neuro: Alert. Gross movement of all extremities intact. Psych: No SI no HI Vital signs: See flowsheet Medical Decision Making Medical Decision Making MDM Narrative: [age] male came in by PD. They have released him to his own recognizance. Has a Cortaid upcoming. Patient made transient SI statements in the setting of arrest on a warrant. manager of change has evaluated him thoroughly and I agree with their plan for discharge home. Consult Healthcare Provider Management of the patient was discussed with: Cigar Head Perforator (sample color maker. cleared by them. No SI/HI or threats) Lab Data MDM Lab Attestation statement: I reviewed the patient's lab results. 07/19/24 21:18 07/19/24 21:18 Labs: Lab Results 07/19/24 07/19/24 Range/Units 21:18 21:19 WBC 10.9 H (4.8-10.8) X10*3/uL RBC 5.02 (4.60-5.80) X10*6/uL Hgb 15.9 (14.0-18.0) g/dl Hct 44.3 (42.0-52.0) % MCV 88.2 (80.0-98.0) fL MCH 31.7 (27.0-33.0) pg MCHC 35.9 (31.0-36.0) g/dl RDW 13.5 (11.0-16.0) % Plt Count 250 (160-400) X10*3/uL MPV 10.3 (9.4-12.4) fL Immature Gran % (Auto) 0.3 (0.0-0.4) % Neut % (Auto) 52.2 (45-73) % Lymph % (Auto) 36.1 (20-40) % King % (Auto) 10.1 (2-11) % Eos % (Auto) 0.8 (0-4) % Baso % (Auto) 0.5 (0-2) % Lymph # (Auto) 3.9 (1.2-4.9) X10*3/uL King # (Auto) 1.1 (0.1-1.2) X10*3/uL Eos # (Auto) 0.1 (0.0-0.4) X10*3/uL Baso # (Auto) 0.1 (0.0-0.2) X10*3/uL Abs Immat Gran (auto) 0.03 (0.00-0.03) X10*3/uL Absolute Neuts (auto) 5.7 (2.0-8.3) x10*3/uL Absolute Nucleated RBC 0.000 (0.0-0.012) X10*3/uL Nucleated RBC % (auto) 0.0 (0.0-0.2) /100WBC Sodium 140 (135-145) mmol/L Potassium 3.8 (3.3-5.1) mmol/L Chloride 107 (96-108) mmol/L Carbon Dioxide 25 (22-29) mmol/L Anion Gap 12 (12-20) BUN 14 (9-16) mg/dL Creatinine 1.00 (0.5-1.4) mg/dL Estim Creat Clear Calc 115.9 Estimated GFR > 60 Random Glucose 100 (60-115) mg/dL Calcium 9.9 (8.4-10.2) mg/dL Total Bilirubin 0.3 (0.0-1.0) mg/dL AST 28 (5-37) U/L ALT 28 (0-40) U/L Alkaline Phosphatase 65 (39-117) U/L Total Protein 8.2 H (6.5-8.0) g/dL Albumin 4.7 (3.5-5.0) g/dL Salicylates < 5.0 L (15-30) mg/dL Urine Opiates Screen Not Detected (Not Detect) Ur Buprenorphine Scrn Not Detected (Not Detect) ng/mL Ur Oxycodone Screen Not Detected (Not Detect) ng/mL Urine Methadone Screen Not Detected (Not Detect) ng/mL Urine Fentanyl Screen Not Detected (Not Detect) Acetaminophen < 3 (<30) mcg/mL Ur Barbiturates Screen Not Detected (Not Detect) Valproic Acid 71.0 (50.0-100.0) mcg/mL Ur Phencyclidine Scrn Not Detected (Not Detect) Ur Amphetamines Screen Not Detected (Not Detect) U Benzodiazepines Scrn Not Detected (Not Detect) Urine Cocaine Screen Not Detected (Not Detect) U Marijuana (THC) Screen Not Detected (Not Detect) Ethyl Alcohol < 10 mg/dL Discharge Plan Discharge Clinical Impression: Acute anxiety Patient Disposition: Home, Self-Care Instructions: Panic Disorder (ED) Additional Instructions: DISCHARGE DIAGNOSES: Anxiety HISTORY OF PRESENTATION: [03] EMERGENCY DEPARTMENT COURSE,TESTS, TREATMENTS: While in the ED today [04] DISCHARGE MEDICATIONS: [We have made no changes to your regular medication regimen] FOLLOW-UP: Call your primary or general physician soon as possible to discuss your symptoms, your ED visit and to discuss follow up plans [06] INSTRUCTIONS & RETURN PRECAUTIONS: If any symptoms change first call your primary physician, if it is after-hours your primary doctors office should have a provider industrial organizational psychologist you can speak with. If the symptoms are severe or very concerning to you then call 911 or return to the ED. [07] Jaya Simpson MD Emergency Physician [facility] Prescriptions: No Action divalproex 500 mg tablet,delayed release (DR/EC) 500 mg PO TID paroxetine HCl 10 mg tablet 10 mg PO DAILY melatonin 3 mg tablet 6 mg PO BEDTIME risperidone 3 mg tablet 3 mg PO BEDTIME buspirone 15 mg tablet 15 mg PO 3XD diphenhydramine HCl 25 mg tablet 25 mg PO TID PRN (Reason: Anxiety) loratadine [Allergy Relief (loratadine)] 10 mg tablet 10 mg PO DAILY trazodone 50 mg tablet 50 mg PO BEDTIME Interventions: [place]-Suicide Risk Severity Scale Last Done: 07/19/24 22:06 ED Discharge Assessment Last Done: 07/19/24 22:22 Discharge Date/Time: 07/19/24 22:22 Print Language: [place]an
[2024-07-19 22:01] LABS: Acetaminophen LAB < 3 mcg/mL (<30); Albumin Level 4.7 g/dL (3.5-5.0); Alkaline Phosphatase 65 U/L (39-117); Anion Gap 12 (12-20); Aspartate Amino Transferase 28 U/L (5-37); Bilirubin Total 0.3 mg/dL (0.0-1.0); Blood Urea Nitrogen 14 mg/dL (9-16); Calcium 9.9 mg/dL (8.4-10.2); Carbon Dioxide 25 mmol/L (22-29); Chloride 107 mmol/L (96-108); Creatinine Clr Calc Pharmacy 115.9; Estimated Glomerular Filt Rate > 60; Ethanol < 10 mg/dL; Glucose Random 100 mg/dL (60-115); Potassium 3.8 mmol/L (3.3-5.1); Salicylate < 5.0 mg/dL (15-30); Sodium 140 mmol/L (135-145); Total Protein 8.2 g/dL (6.5-8.0)
[2024-07-19 22:21] LABS: Alanine Aminotransferase 28 U/L (0-40)
[2024-07-19 22:22] VITALS: BP 128/80; PULSE 82; RESP 17; TEMP 37; O2SAT 99
== END 2024-07-19 22:22 | disposition home or self-care (01) ==
PROVIDERS: Emergency Provider Emergency Medicine
DX: F41.9 Anxiety disorder, unspecified (principal); R45.851 Suicidal ideations; Z79.899 Other long term (current) drug therapy; Z51.81 Encounter for therapeutic drug level monitoring
CPT/HCPCS: 36415; 80053; 80143; 80164; 80179; 80307; 85025; 99284; S9485

== ENCOUNTER 2024-07-26 02:46 | Emergency (ER) | payer OTHER, SELFPAY ==
[2024-07-26 02:49] VITALS: BP 118/64; PULSE 96; O2SAT 98
[2024-07-26 03:14] VITALS: BP 133/83; PULSE 78; RESP 20; TEMP 36.9; O2SAT 99; BMI 26.0
[2024-07-26] MEDS: busPIRone HCl 5 MG TABLET 15 MG PO (05:02)
[2024-07-26 05:23] VITALS: BP 136/79; PULSE 98; RESP 18; TEMP 36.3; O2SAT 100
--- NOTE | 2024-07-26 05:44 | ED.ANXIETY ---
HPI - Anxiety General Chief Complaint: Anxiety Stated Complaint: Has not taking prescription med he needs x1 day Time Seen by Provider: 07/26/24 05:32 Source: patient Mode of arrival: EMS Limitations: no limitations History of Present Illness ED Provider: HPI narrative: Patient's history of anxiety was out of town today and missed his BuSpar worried about it came here by EMS for anxiety and wanted his BuSpar no depression no SI feeling he was at [facility] kicked out from the waiting area Related Data Home Medications ?Medication ?Instructions ?Recorded ?Confirmed divalproex 500 mg tablet,delayed 500 mg PO TID 05/28/24 07/09/24 release buspirone 15 mg tablet 15 mg PO 3XD 07/09/24 07/09/24 melatonin 3 mg tablet 6 mg PO BEDTIME 07/09/24 07/09/24 paroxetine HCl 10 mg tablet 10 mg PO DAILY 07/09/24 07/09/24 risperidone 3 mg tablet 3 mg PO BEDTIME 07/09/24 07/09/24 diphenhydramine HCl 25 mg tablet 25 mg PO TID PRN Anxiety 07/10/24 07/10/24 loratadine 10 mg tablet (Allergy 10 mg PO DAILY 07/10/24 07/10/24 Relief (loratadine)) trazodone 50 mg tablet 50 mg PO BEDTIME 07/10/24 07/10/24 Allergies Allergy/AdvReac Type Severity Reaction Status Date / Time No Known Allergies Allergy Verified 07/26/24 03:17 Review of Systems Review of Systems: Yes all other systems are reviewed and are negative [facility] Social History Social History Alcohol intake: never Advance Directives: No Advance Directives Information Provided: Yes Physical Exam Vital Signs: Vital Signs: Last Vital Signs Temp 97.3 F 07/26/24 05:23 Pulse 98 07/26/24 05:23 Resp 18 07/26/24 05:23 BP 136/79 07/26/24 05:23 Pulse Ox 100 07/26/24 05:23 O2 Del Method Room Air 07/26/24 05:23 BMI result Body Mass Index 26.0 Appearance: Alert. Oriented X3. No acute distress. Eyes: PERRLA, No Nystagmus ENT: Pharynx normal. Oral Mucosa moist Neck: Normal inspection. Neck supple. CVS: Normal heart rate and rhythm. Pulses normal. Respiratory: No respiratory distress. Equal air entry bilateral, no wheezing/rales/rhonchi Abdomen: Soft and nontender. Bowel sounds are present, no mass palpable, no CVA tenderness Skin: Skin warm and dry. Normal skin color. Normal skin turgor. Extremities: No lower extremity edema. No calf tenderness psych: Anxious denies any SI or HI denies any hallucination Neuro: Oriented X 3. No motor deficit. No sensory deficit.No cerebellar signs , cranial nerves II-XII intact Medications Administered Discontinued Medications Generic Name Dose Route Start Last Admin Trade Name Freq PRN Reason Stop Dose Admin Buspirone HCl 15 mg 07/26/24 04:38 07/26/24 05:02 Buspirone Hcl 5 Mg Tablet PO 07/26/24 04:39 15 mg ONCE ONE Administration Medical Decision Making Medical Decision Making [facility] Narrative: Patient will give in the dose of BuSpar per feeling much better Discharge Plan Discharge Clinical Impression: Acute anxiety Patient Disposition: Home, Self-Care Instructions: Anxiety (ED) Additional Instructions: Take medication as prescribed and follow up with your therapist Prescriptions: No Action divalproex 500 mg tablet,delayed release (DR/EC) 500 mg PO TID paroxetine HCl 10 mg tablet 10 mg PO DAILY melatonin 3 mg tablet 6 mg PO BEDTIME risperidone 3 mg tablet 3 mg PO BEDTIME buspirone 15 mg tablet 15 mg PO 3XD diphenhydramine HCl 25 mg tablet 25 mg PO TID PRN (Reason: Anxiety) loratadine [Allergy Relief (loratadine)] 10 mg tablet 10 mg PO DAILY trazodone 50 mg tablet 50 mg PO BEDTIME Print Language: Irish
--- NOTE | 2024-07-26 06:01 | PC.NURSE ---
pt medicated according to jeanmarie pt ambulatory pt verbalized understanding of discharge plan pt discharged to waiting room awaiting lyft ride
[2024-07-26 06:02] VITALS: BP 136/79; PULSE 98; RESP 18; TEMP 36.3; O2SAT 100
== END 2024-07-26 06:05 | disposition home or self-care (01) ==
PROVIDERS: Emergency Provider Internal Medicine
DX: F41.9 Anxiety disorder, unspecified (principal)
CPT/HCPCS: 99283; 99284